=== PATIENT | female | born 1995 | race Caucasian/White ===

== ENCOUNTER → 2023-11-21 07:58 | Outpatient (BNVA) | payer BC, SELFPAY | PROVIDERS: Family Provider Nurse Practitioner Family; PCP Nurse Practitioner Family; Visit Provider Nurse Practitioner Family | DX: R00.2 Palpitations (principal); E78.5 Hyperlipidemia, unspecified; I10 Essential (primary) hypertension | CPT/HCPCS: 93005 ==

== ENCOUNTER → 2023-11-21 10:44 | Outpatient (BNVA) | payer BC, SELFPAY | PROVIDERS: Family Provider Nurse Practitioner Family; PCP Nurse Practitioner Family; Visit Provider Nurse Practitioner Family | DX: R00.2 Palpitations (principal); E78.5 Hyperlipidemia, unspecified; I10 Essential (primary) hypertension | CPT/HCPCS: 80053; 80061; 84439; 84443; 84481 ==

== ENCOUNTER → 2025-03-14 10:00 | Outpatient (BNVA) | payer BC, SELFPAY | PROVIDERS: Family Provider Nurse Practitioner Family; PCP Nurse Practitioner Family; Visit Provider Emergency Medicine | DX: B34.9 Viral infection, unspecified (principal); J03.80 Acute tonsillitis due to other specified organisms; B96.89 Other specified bacterial agents as the cause of diseases classified elsewhere | CPT/HCPCS: 87070; 87426; 87880 ==

== ENCOUNTER 2025-08-12 14:59 | Inpatient (IN) | payer BC, SELFPAY ==
[2025-08-12] VITALS (186 sets, daily range): BP systolic 87–182; BP diastolic 43–115; PULSE 64–101; RESP 18; TEMP 36.1–36.9; O2SAT 94–100; BMI 25.8
[2025-08-12 13:08] LABS: Hematocrit 32.5 % (36-47); Hemoglobin 10.50 g/dL (11.27-16.99); Mean Corpuscular HGB Conc 32.3 g/dL (30-55); Mean Corpuscular Hemoglobin 28.2 pg (27-33); Mean Corpuscular Volume 87.1 fl (85-98); Nucleated Red Blood Cells % 0 %; Platelet Count 279 10^3/cmm (157-399); Red Blood Count 3.73 10^6/uL (3.85-5.65); White Blood Count 9.27 10^3/uL (3.29-11.43)
[2025-08-12] MEDS: labetalol 5 mg/mL SDV 20mL 20 MG IVP ×2 (13:19→15:33)
[2025-08-12 13:21] LABS: Glucose Urine UA Negative (Normal); Nitrate Urine Negative (Negative); Specific Gravity, Urine 1.006 (1.005-1.030)
[2025-08-12 13:23] LABS: Alanine Aminotransferase 13 U/L (0-33); Albumin Level 3.7 g/dL (3.5-5.2); Alkaline Phosphatase 170 U/L (35-105); Anion Gap 15.7 (5-19); Aspartate Amino Transferase 14 U/L (0-32); Blood Urea Nitrogen 6 mg/dL (6-20); Calcium 8.9 mg/dL (8.5-10.5); Carbon Dioxide 18 mmol/L (22-29); Chloride 105 mmol/L (98-107); Globulin 2.9 g/dL (1.3-4.6); Glucose 91 mg/dL (65-115); Osmolality Calculated 277 mOsm/kg (285-295); Potassium 3.7 mmol/L (3.5-5.1); Sodium 135 mmol/L (136-145); Total Protein 6.6 g/dL (6.6-8.7); Uric Acid 3.8 mg/dL (2.4-5.7)
[2025-08-12 13:26] LABS: Add Urine Microscopic? YES
[2025-08-12 13:40] LABS: UPRO/UCREAT Ratio 0.78 mg/mg CR
[2025-08-12 13:51] LABS: UA Slide Review UA Slide Review Perf
[2025-08-12] MEDS: magnesium sulfate premix 4 GM/100 ML PREMIX IV (14:28)
[2025-08-12] MEDS: magnesium sulfate premix 20 GM/500 ML BAG IV ×2 (14:51→22:54)
--- NOTE | 2025-08-12 15:19 | ANES.PREANE2 ---
Pre-Anesthetic Assessment Height/Weight: Height 1.7 m Weight 74.843 kg Pulse BP Pulse Ox O2 Del Method 96 161/101 98 Room Air 08/12/25 15:15 08/12/25 15:13 08/12/25 15:15 08/12/25 12:59 Epidural Familial anesthetic complications: Nausea Was Beta Courtney taken within 24 hours: N/A Was Clonidine taken within 24 hours: N/A Last intake: 1200 solids Social No alcohol and No tobacco Exam alert, oriented x 3, clear to auscultation bilaterally and regular rate & rhythm Airway Submandibular: within normal limits Cervical ROM: within normal limits Mallampati: Class II Dentition: full History/ROS No significant history except as noted and No significant complaints Pulmonary None reported CV/HEM Hypertension (Pre-eclampsia) None reported Hepatic None reported GI Gastroesophageal Reflux Disease (Gestational) Metabolic None reported Musc/skel Scoliosis (Wore a back brace but never needed corrective surgery. Chiari malformation, underwent corrective surgery at age 12, went to neurology once a year until 20 and was discharged. Patient states she was able to play sports without issues. No neurological symptoms noted.) Neuropsych Anxiety and Depression Anesthetic Plan ASA status: 3 Anesthesia: Anesthesia Evaluation, General and Regional (specify below) Risk of > 500 ml blood loss (7ml/kg in children): Yes, adequate IV access and fluids planned Medications/Allergies Home Medications ?Medication ?Instructions ?Recorded ?Confirmed ?Last Taken ?Type omeprazole 20 mg capsule,delayed 20 mg PO DAILY 08/12/25 08/12/25 08/11/25 20:00 History release [id number]-efh-Dy-FA 1 mg 1 tab PO DAILY 08/12/25 08/12/25 08/12/25 08:00 History tablet 1 tab Allergies Allergy/AdvReac Type Severity Reaction Status Date / Time No Known Allergies Allergy Verified 03/14/25 09:51 Current Medications Generic Name Dose Route Start Last Admin Trade Name Freq PRN Reason Stop Dose Admin Dextrose/Lactated Ringer's 1,000 mls @ 125 mls/hr 08/12/25 13:00 08/12/25 13:14 Dextrose 5%-Lactated Ringers IV 125 mls/hr .Q8H LESLIE Administration Magnesium Sulfate 20 gm in 500 mls @ 50 mls/hr 08/12/25 14:15 08/12/25 14:51 Magnesium Sulfate Premix IV 50 mls/hr .Q10H LESLIE Administration Labetalol HCl 20 mg 08/12/25 13:02 08/12/25 13:19 Labetalol 5 Mg/Ml Sdv 20ml IVP 20 mg PRN PRN Administration HYPERTENSION Protocol Misoprostol 25 mcg 08/12/25 13:00 08/12/25 13:23 Misoprostol 100 Mcg Tablet VAGINAL 08/12/25 17:01 25 mcg Q4H LESLIE Administration PFS Anesthesia Medical History Chiari I malformation Surgical History History of cervical spinal surgery Family History Mother Hypertension Grandfather Heart disease maternal Grandmother Stroke maternal Social History Smoking and tobacco/nicotine status: never used tobacco/nicotine Alcohol intake: never Substance/Drug Use: never Adopted: No Caregiver/support person: No Lives independently: No Household members: spouse service: No Current occupational status: employed Sexually active: Yes Do you think of yourself as: Straight/Heterosexual Current gender identity: Female Female Reproductive History : 1 Data Anesthesia 08/12/25 12:30 08/12/25 12:30 Short CBC 08/12/25 Range/Units 12:30 WBC 9.27 (3.29-11.43) 10^3/uL Hgb 10.50 L (11.27-16.99) g/dL Hct 32.5 L (36-47) % MCV 87.1 (85-98) fl Plt Count 279 (157-399) 10^3/cmm Neut % (Auto) 70.4 % Neut # (Auto) 6.52 (1.8-7.7) 10^3/uL BMP 08/12/25 12:30 Sodium 135 L Potassium 3.7 Chloride 105 Carbon Dioxide 18 L BUN 6 Creatinine 0.5 Glucose 91 Calcium 8.9 Liver Function 08/12/25 Range/Units 12:30 Total Bilirubin 0.2 (0.15-1.2) mg/dL AST 14 (0-32) U/L ALT 13 (0-33) U/L Alkaline Phosphatase 170 H (35-105) U/L Albumin 3.7 (3.5-5.2) g/dL Urine 08/12/25 Range/Units 12:30 Urine Color Yellow (Yellow) Urine Appearance Clear (CLEAR) Urine pH 6.0 (5-7) Ur Specific [place] 1.006 (1.005-1.030) Urine Protein Trace A (Negative) Urine Glucose (UA) Negative (Normal) Urine Ketones Negative (Negative) Urine Nitrate Negative (Negative) Urine Bilirubin Negative (Negative) Ur Leukocyte Esterase Negative (Negative) Urine RBC 0-2 (0-2) /hpf Urine WBC 6-10 (0-5) /hpf Blood Bank 08/12/25 12:30 Blood Type A Positive Rho(D) Type Rh positive Antibody Screen Negative Cardiac Studies: Holter Monitor 12/09/23
[2025-08-12] MEDS: ondansetron 2 mg/ML SDV 2 mL 4 MG IVP (16:50)
[2025-08-12] MEDS: ROPivacaine premix 200 MG/100 ML PREMIX 13 MG EPIDURAL ×2 (16:54→21:32)
--- NOTE | 2025-08-12 17:02 | P.ANES_ITS ---
Anesthesia Procedures Procedure/Date: 08/12/25 Epidural: Time Out Performed: Yes Consents Signed: Procedure Consent and NPO Consent Consent: requested by attending/covering physician, from patient, risks and benefits reviewed and patient agrees to proceed Lumbar Level: L2-L3 Epidural position: sitting Epidural procedure: sterile prep of area (betadine), 1% lidocaine to numb the area (3 mLs), neg for paresthesia, test dose given, 1.5% xylocaine 1:200k epi (3 mLs/ 2 mLs), placed PCEA, no systemic response, sterile dressing applied, L.U.D. no apparent complications and 0.2% Ropiavacaine @ mls/hr (13) Additional Comments: KALYANI 4.5cm, catheter threaded to 11cm. Negative aspiration for CSF and blood. BORING MILL OPERATOR button within reach with education given and patient verbalizing understanding. 1800: Patient complains of pain despite utilizing BORING MILL OPERATOR button 3 times. 100mcg fentanyl and 6 mL0.25% bupivacaine administered via epidural. Negative aspiration for CSF and blood. Educated patient that epidural may need to be replaced. She is agreeable. 1900: Patient states she had some relief from previous bolus but still experiencing contraction pain and requests a new epidural. Previous epidural removed with tip intact. Dr. Hayes asked to come and replace epidural. Epidural inserted at L3-4, KALYANI 6cm, catheter threaded to 12cm. 5cc bolus given and patient states contraction pain has improved.
--- NOTE | 2025-08-12 22:19 | PM.OPHPUD ---
Labor & Delivery H&P Update Date of Procedure: August 12, 2025 Date H&P Performed: 08/12/25 Admission Diagnosis: 30-year-old 1 at 39 weeks estimated gestational age presenting with preeclampsia with severe features due to elevated blood pressure Planned procedure: Spontaneous vaginal delivery Other information: The patient is an otherwise healthy 30-year-old female who presents to my office today for a routine OB visit. During her visit she was noted to have multiple blood pressures are in the severe range with several systolic blood pressures greater than 160. Due to her gestational age, I notified her that she would be induced today. Otherwise, she had been having minimal symptoms. She is having only routine dependent edema in her lower extremities. No complaints of headaches. No abdominal pain. No swelling in her hands or face. No scotoma. Otherwise, her has been unremarkable. She had consistent care. There were no concerns or complications otherwise during her . Her blood type was a positive. Her antibody screen was negative. She passed her glucose screen. She was GBS negative. She is rubella immune. The remainder of her infectious disease profile was within normal limits. Related Problem List Diagnoses 1. 39 weeks gestation of : 2. Pre-eclampsia in third trimester: A&P Assessment and plan 1. 39 weeks gestation of : Induction will be performed with Cytotec, and amniotomy as well as Pitocin as needed. Due to her severe features, she will also be placed on magnesium per protocol. Status: Acute 2. Pre-eclampsia in third trimester: Status: Acute PDMP PDMP Reviewed: Not Reviewed
[2025-08-12] MEDS: oxytocin 30 UNIT/500 ML BAG 600 UNIT IV (22:47)
--- NOTE | 2025-08-12 23:28 | PM.DELIVERY ---
Delivery Note: Date of delivery: August 12, 2025 Pre-delivery diagnoses: 30-year-old 1 at 39 weeks estimated gestational age with preeclampsia with severe features Post-delivery diagnoses: Status post vacuum-assisted vaginal delivery Procedure: Vacuum-assisted vaginal delivery Delivering Physician: Que Gaitan Estimated blood loss (mL): 200 Pre-Delivery Course: The patient presented to the hospital having no contractions but being sent for induction due to elevated blood pressure. She had a preeclamptic profile performed and she was found to have a protein creatinine ratio of 0.78. The remainder of her labs are within normal limits. She also had no signs or symptoms of preeclampsia other than her elevated blood pressure. She was induced initially with Cytotec. An amniotomy was then performed. An epidural was placed. She progressed to complete without difficulty. She did have multiple elevated blood pressures that were treated with labetalol. Delivery: DELIVERY: The patient progressed to complete without difficulty. She delivered a male with a weight of 7 pounds 6 ounces with Apgars of 8, 9. Due to multiple deep decelerations, the decision was made to proceed with a vacuum-assisted delivery. The vacuum was gently placed the baby's head in the appropriate anatomic position. The Kiwi vacuum with a soft cup was pumped up according to professor of sport management instructions into the green zone. The vacuum was then used to assist the mother and delivery during 2 contractions. At the end of the second contraction the vacuum was removed, and the baby was then delivered without difficulty. The baby was delivered from the ZACKERY position and placed on the mother's abdomen. The cord was then clamped and cut. There was no nuchal cord. There was no meconium. The placenta and 3 vessel cord were delivered intact shortly thereafter. The perineum and vaginal vault were carefully examined. The patient had a second-degree tear that was repaired with 3-0 Vicryl. She was noted to have a skin flap in her perineal area which was carefully reapproximated with the surrounding skin in the appropriate anatomical position. Both the mother and the baby were in stable condition. Post-Delivery Status: Good A&P Assessment and plan 1. 39 weeks gestation of : The patient will be kept on magnesium postdelivery. If she diuresis well, and her blood pressure stay normal I will likely keep her on magnesium for only 12 hours due to the fact that she had no other symptoms of preeclampsia. 2. Pre-eclampsia in third trimester: 3. Vacuum-assisted vaginal delivery: PDMP PDMP Reviewed: Not Reviewed Coding Level of Care Code Acute Code for Chg Fwd Diagnoses 39 weeks gestation of Z3A.39 Pre-eclampsia in third trimester O14.93 Vacuum-assisted vaginal delivery Z37.9
[2025-08-13] VITALS (27 sets, daily range): BP systolic 119–154; BP diastolic 63–95; PULSE 81–105; RESP 16; TEMP 36.1–36.7
[2025-08-13] MEDS: benzocaine-menthol 78 gm Canister 1 SPRAY TOPICAL (03:10)
[2025-08-13] MEDS: PRENATAL VIT NO.130/IRON/FOLIC 1 EACH TABLET PO (04:58)
--- NOTE | 2025-08-13 06:48 | P.PN_ITS ---
MOISTURE METER OPERATOR Subjective 2 Subjective: Interval history: The patient has done very well postdelivery. She has had large volume diuresis. She continues to be sedated for the magnesium. She has not had any severe blood pressures. Labor: Station: +1 Amniotic Membrane Status: Ruptured Monitor Mode: External Contraction Pattern: Regular Status: Category I Vitals/I&O/Wt Last Vital Signs Temp 98.0 F 08/13/25 03:17 Pulse 100 08/13/25 06:14 Resp 16 08/13/25 00:03 BP 133/80 08/13/25 06:14 Pulse Ox 99 08/12/25 20:57 O2 Del Method Room Air 08/13/25 00:03 08/12/25 08/12/25 08/13/25 14:59 22:59 06:59 Intake Total 602.5 / 602.5 2000 / 2602.5 Output Total 1475 / 1475 2100 / 3575 Balance -872.5 / -872.5 -100 / -972.5 Weight last 48 hrs Weight 165 lb Physical Exam 2 Narrative: The patient is alert. She appears comfortable. Her heart has a regular rate and rhythm with no murmurs appreciated. Lungs are clear to auscultation bilaterally. Her fundus is firm and below the umbilicus. Urinary Catheter Management: Cruz Latex: Cath Placed During This Visit: yes Reason for Continuing Indwelling Catheter: Accurate Measurement of Urinary Output in Critically Ill Patients Urinary Catheter Date of Insertion: 08/13/25 Urinary Catheter Time of Insertion: 00:00 Data 08/12/25 12:30 08/12/25 12:30 A&P Assessment and plan 1. Pre-eclampsia in third trimester: If she continues to do well, we will consider stopping the magnesium 12 hours postdelivery. Especially in light of her impressive diuresis as well as her lack of other preeclamptic symptoms. Hopefully should be discharged tomorrow. 2. 39 weeks gestation of : 3. Status post vaginal delivery: PDMP PDMP Reviewed: Not Reviewed Attestations 2 Medical Necessity Statement*: Routine post vaginal delivery with preeclampsia care. Coding Level of Care Code Acute Code for Chg Fwd Diagnoses Pre-eclampsia in third trimester O14.93 39 weeks gestation of Z3A.39 Status post vaginal delivery
--- NOTE | 2025-08-13 08:00 | ANE.PACU2 ---
Inpatient post-anesthesia follow up: Airway intact: Yes Vital signs: Temperature 97.5 F Pulse Rate 93 Respiratory Rate 16 Blood Pressure 143/90 Pulse Oximetry 98 Oxygen Delivery Me thod Room Air Oxygen Flow Rate Fraction of Inspir ed Oxygen Hydration adequate: Yes Nausea and vomiting: No Pain level: 1 Mental status: Baseline Epidural Start/End: Epidural Start Date: 08/12/25 Epidural Start Time: 16:32 Epidural End Date: 08/12/25 Epidural End Time: 23:28
[2025-08-13] MEDS: magnesium sulfate premix 20 GM/500 ML BAG IV (09:05)
[2025-08-13 11:55] LABS: Hematocrit 26.1 % (36-47); Hemoglobin 8.40 g/dL (11.27-16.99); Mean Corpuscular HGB Conc 32.2 g/dL (30-55); Mean Corpuscular Hemoglobin 28.0 pg (27-33); Mean Corpuscular Volume 87.0 fl (85-98); Platelet Count 242 10^3/cmm (157-399); Red Blood Count 3.00 10^6/uL (3.85-5.65); White Blood Count 12.86 10^3/uL (3.29-11.43)
[2025-08-14] VITALS (10 sets, daily range): BP systolic 135–160; BP diastolic 76–94; PULSE 73–93; TEMP 36.1–36.4; O2SAT 98
[2025-08-14] MEDS: PRENATAL VIT NO.130/IRON/FOLIC 1 EACH TABLET PO (04:51)
--- NOTE | 2025-08-14 09:58 | P.DS_ITS ---
Discharge Providers FRONT END WEB DESIGNER Date of Admission: 08/12/25 14:59 Date of Discharge: 08/19/25 Attending Provider at Admission: Que Gaitan MD Attending Provider at Discharge: Que Gaitan MD Primary Care Provider: HARRY Whiting Diagnoses at Discharge Discharge Diagnosis 1. Pre-eclampsia in third trimester: 2. 39 weeks gestation of : 3. Status post vaginal delivery: Reason for Visit Reason for Visit: induction Hospital Course Hospital Course The patient presented to the hospital for induction due to preeclampsia. She had a preeclamptic panel performed which noted an elevated protein creatinine ratio. The remainder of the findings were within normal limits. She had mul tiple blood pressure elevations including multiple that were in the severe range. We ultimately were able to control her blood pressures while inducing here. An epidural was placed. And she progressed to complete without difficulty. A vacuum-assisted vaginal delivery was required due to multiple deep decelerations of her . The patient had a second-degree posterior midline laceration that was repaired in the usual fashion. The patient was maintained on magnesium for 12 hours postdelivery. She diuresed postdelivery. Her blood pressure improved. She did continue to require blood pressure medications through her hospital stay. Her bleeding was within normal limits. Her pain was well-controlled. There were no other concerns. Information Peripartum Data: Infant Delivery Method: Vaginal Physical Exam Narrative: The patient is alert. She appears comfortable. Her heart has a regular rate and rhythm with no murmurs appreciated. Lungs are clear to auscultation bilaterally. Her fundus is firm and below the umbilicus. Trace to 1+ edema in her lower extremities bilaterally. No other edema is noted. Urinary Catheter Management: Cruz Latex: Cath Placed During This Visit: yes, but has since been removed by the nurse Reason for Continuing Indwelling Catheter: Decision to DC Catheter Urinary Catheter Date of Insertion: 08/13/25 Urinary Catheter Time of Insertion: 00:00 Date Urinary Catheter Removed: 08/13/25 Time Urinary Catheter Discontinued: 13:00 Discharge Data Studies Completed and Pending Pending at discharge Category Date Time Status Urine Culture Stat Lab 08/12/25 12:30 Results Laboratory Results WBC 12.86 10^3/uL (3.29-11.43) H 08/13/25 11:11 RBC 3.00 10^6/uL (3.85-5.65) L 08/13/25 11:11 Hgb 8.40 g/dL (11.27-16.99) L 08/13/25 11:11 Hct 26.1 % (36-47) L 08/13/25 11:11 MCV 87.0 fl (85-98) 08/13/25 11:11 MCH 28.0 pg (27-33) 08/13/25 11:11 MCHC 32.2 g/dL (30-55) 08/13/25 11:11 RDW 13.2 % (12.1-15.1) 08/13/25 11:11 Plt Count 242 10^3/cmm (157-399) 08/13/25 11:11 MPV 10.7 fL (7.4-10.4) H 08/13/25 11:11 Neut % (Auto) 70.4 % 08/12/25 12:30 Lymph % (Auto) 21.5 % 08/12/25 12:30 Eddy % (Auto) 6.0 % 08/12/25 12:30 Eos % (Auto) 0.4 % 08/12/25 12:30 Baso % (Auto) 0.4 % 08/12/25 12:30 Neut # (Auto) 6.52 10^3/uL (1.8-7.7) 08/12/25 12:30 Lymph # (Auto) 2.0 10^3/uL (0.8-4.8) 08/12/25 12:30 Eddy # (Auto) 0.6 10^3/uL (0.2-0.9) 08/12/25 12:30 Eos # (Auto) 0.0 10^3/uL (0.0-0.8) 08/12/25 12:30 Baso # (Auto) 0.0 10^3/uL (0.0-0.1) 08/12/25 12:30 Nucleated RBC % (auto) 0 % 08/12/25 12:30 Nucleated RBCs # 0.0 /100WBC 08/12/25 12:30 Sodium 135 mmol/L (136-145) L 08/12/25 12:30 Potassium 3.7 mmol/L (3.5-5.1) 08/12/25 12:30 Chloride 105 mmol/L (98-107) 08/12/25 12:30 Carbon Dioxide 18 mmol/L (22-29) L 08/12/25 12:30 Anion Gap 15.7 (5-19) 08/12/25 12:30 BUN 6 mg/dL (6-20) 08/12/25 12:30 Creatinine 0.5 mg/dL (0.5-0.9) 08/12/25 12:30 GFR Calculation 146.9 mL/min (90-130) H 08/12/25 12:30 Glucose 91 mg/dL (65-115) 08/12/25 12:30 Calculated Osmolality 277 mOsm/kg (285-295) L 08/12/25 12:30 Uric Acid 3.8 mg/dL (2.4-5.7) 08/12/25 12: Calcium 8.9 mg/dL (8.5-10.5) 08/12/25 12: Total Bilirubin 0.2 mg/dL (0.15-1.2) 08/12/25 12: AST 14 U/L (0-32) 08/12/25 12:30 ALT 13 U/L (0-33) 08/12/25 12:30 Alkaline Phosphatase 170 U/L (35-105) H 08/12/25 12:30 Lactate Dehydrogenase 257 U/L (135-214) H 08/12/25 12:30 Total Protein 6.6 g/dL (6.6-8.7) 08/12/25 12: Albumin 3.7 g/dL (3.5-5.2) 08/12/25 12: Globulin 2.9 g/dL (1.3-4.6) 08/12/25 12:30 Urine Color Yellow (Yellow) 08/12/25 12:30 Urine Appearance Clear (CLEAR) 08/12/25 12:30 Urine pH 6.0 (5-7) 08/12/25 12: Ur Specific [place] 1.006 (1.005-1.030) 08/12/25 12:30 Urine Protein Trace (Negative) A 08/12/25 12:30 Urine Glucose (UA) Negative (Normal) 08/12/25 12: Urine Ketones Negative (Negative) 08/12/25 12:30 Urine Blood 2+ (Negative) A 08/12/25 12:30 Urine Nitrate Negative (Negative) 08/12/25 12:30 Urine Bilirubin Negative (Negative) 08/12/25 12:30 Urine Urobilinogen 0.2 mg/dL (Negative) 08/12/25 12:30 Ur Leukocyte Esterase Negative (Negative) 08/12/25 12:30 Urine RBC 0-2 /hpf (0-2) 08/12/25 12:30 Urine WBC 6-10 /hpf (0-5) 08/12/25 12:30 Ur Squamous Epith Cells 0-5 /hpf (0-5) 08/12/25 12:30 Amorphous Sediment Not Reportable 08/12/25 12:30 Urine Bacteria 1+ /hpf (NONE) H 08/12/25 12:30 Hyaline Casts 0-4 /lpf H 08/12/25 12:30 U Random Total Protein 21 mg/dL 08/12/25 12:30 Urine Creatinine 27 mg/dL (28-217) L 08/12/25 12:30 Protein/Creatinin Ratio 0.78 mg/mg CR 08/12/25 12:30 Blood Type A Positive 08/12/25 12:30 Rho(D) Type Rh positive 08/12/25 12:30 Antibody Screen Negative 08/12/25 12:30 Vitals Last Vital Signs Temp 97.0 F L 08/14/25 04:55 Pulse 86 08/14/25 06:41 Resp 16 08/13/25 00:03 BP 135/76 08/14/25 06:41 Pulse Ox 99 08/12/25 20:57 O2 Del Method Room Air 08/13/25 00:03 Results Labs OB ([facility]): Blood Type A Positive 08/12/25 Antibody Screen Negative 08/12/25 Hct, (36-47) 25.9 % L 08/15/25 Hgb, (11.27-16.99) 8.70 g/dL L 08/15/25 Rho(D) Type Rh positive 08/12/25 Plt Count, (157-399) 273 10^3/cmm 08/15/25 TSH, (0.27-4.20) 1.74 uIU/mL 11/21/23 Free T4, (0.82-1.77) 1.32 ng/dL 11/21/23 Uric Acid, (2.4-5.7) 3.8 mg/dL 08/12/25 Micro Urine Specimen 08/15/25 Discharge Plan Discharge Patient Disposition: Home Condition: Stable Prescriptions: New labetalol 200 mg Tablet 200 mg PO BID Qty: 45 0RF ibuprofen 800 mg Tablet 800 mg PO TID Qty: 45 0RF Continued tmmzwupa-xxj-Sd-FA 1 mg Tablet 1 tab PO DAILY Discontinued omeprazole 20 mg Capsule,Delayed Release(Dr/Ec) 20 mg PO DAILY No Action nifedipine [Procardia XL] 60 mg tablet extended release 24hr 60 mg PO DAILY Qty: 30 0RF lisinopril 20 mg tablet 20 mg PO DAILY Qty: 30 0RF cefdinir 300 mg capsule 300 mg PO BID 10 Days Qty: 20 0RF Discharge Order = DC NOW: Discharge Order (Routine); Ordered 08/14/25 Ordered By: Que Gaitan Referrals: Que Gaitan MD [Physician, Family Practice] - 7-10 days Referral Note: Call Dr Marmolejo office first thing on Friday to get an appt for you and baby. Discharge Diet: Usual diet Discharge Activity: Limit activity as instructed Patient Instructions: Depression (GEN), Bleeding (GEN), Preeclampsia and Eclampsia After Delivery (GEN), OB Food/Drug Interaction Guide, OB Care at Home, Opioid Safety, OB Home Care, OB Vaginal Deliveries, Patient Portal & Simón Instructions, Abnormal Bleeding Discharge Attestations FRONT END WEB DESIGNER Time Spent in Discharge Care*: less than 30 min Coding Level of Care Code Acute Code for Chg Fwd Diagnoses Pre-eclampsia in third trimester O14.93 39 weeks gestation of Z3A.39 Status post vaginal delivery
== END 2025-08-14 12:20 | disposition home or self-care (01) | DRG 805 ==
LOC: OPOB 15:00 → OBGYN 15:00
PROVIDERS: Admitting Provider Family Medicine; PCP Nurse Practitioner Family; Visit Provider Family Medicine
DX: O14.94 Unspecified pre-eclampsia, complicating childbirth (principal); G93.5 Compression of brain; Z37.0 Single live birth; Z3A.39 39 weeks gestation of pregnancy; O76 Abnormality in fetal heart rate and rhythm complicating labor and delivery; O70.1 Second degree perineal laceration during delivery; O75.89 Other specified complications of labor and delivery; K21.9 Gastro-esophageal reflux disease without esophagitis
CPT/HCPCS: 36415; 51702; 59025; 59409; 80053; 81001; 82570; 83615; 84156; 84550; 85025; 85027; 86850; 86900; 87086; 96374; 96376; 99211; J2405; J2590; J2795; J3010; J3475; J3490; J7120; J7121; J9999

== ENCOUNTER 2025-08-15 17:09 | Emergency (ER) | payer BC, SELFPAY ==
[2025-08-15] VITALS (14 sets, daily range): BP systolic 154–185; BP diastolic 99–111; PULSE 71–101; RESP 16–19; TEMP 37; O2SAT 95–97; BMI 24.3
--- NOTE | 2025-08-15 17:04 | ECG_ITS ---
[facility] Test Date: 2025-08-15 Pat Name: Jimena Richards Department: Room: Gender: Female Carbon Setter: : 1995 Requested By: Joann Norris Order Number: [id number] Mo MD: Fatuma Nguyen M.D. Measurements Intervals [place] Rate: 71 P: 25 HI: 135 QRS: 39 QRSD: 76 T: 39 QT: 375 QTc: 410 Interpretive Statements SINUS RHYTHM No previous ECG available for comparison Electronically Signed On 08-16-2025 19:00:58 [employer]VER [employer] by Fatuma Nguyen M.D. [email or web address]
--- OUTSIDE RECORDS SUMMARY | 2025-08-15 17:13 | XMS_ITS | Continuity of Care Document ---
Author Organization [facility] Gabriel Saenz [facility], LCelena, [facility] ([facility]) Address [address] [place] [address] Assessment No assessment recorded. Plan of Treatment Reminders Order Date Submit Date Provider Last Modified By Organization Details Last Modified Time Details Appointments POST-PA RTUM VISIT 026 09:50AM Que Gaitan MD Not available Not available Not available Lab None recorde d. Referral None recorde d. Procedures None recorde d. Surgeries None recorde d. Imaging None recorde d. Medication Orders None recorde d. Patient TargetsNo targets recorded. Patient InstructionsNo instructions recorded. Reason for Referral None Reported. Results Created Date Observation Date Name Description Value Unit Range Abnormal Flag Note LastModifiedBy Organization Detail LastModifiedTime 02/05/2002/08/2025 URINA LYSIS , COMPL ETE color YELLOW yellow normal Not Available [facility] [address] [place], [address], 02/08/2025 11:05:21 02/05/20 25 02/08/2025 URINA LYSIS , COMPL ETE appearance CLOUDY clear abnormal Not Available [facility] [address] [place], [address], 02/08/2025 11:05:21 02/05/2002/08/2025 URINA LYSIS , COMPL ETE specific gravity 1.024 1.001- 1.035 normal Not Available [facility] [address] [place], [address], 02/08/2025 11:05:21 02/05/20 25 02/08/2025 URINA LYSIS , COMPL ETE pH 6.5 5.0-8. 0 normal Not Available [address], [address], 02/08/2025 11:05:21 02/05/20 25 02/08/2025 URINA LYSIS , COMPL ETE glucose NEGATI VE negati ve normal Not Available [address], [address], 02/08/2025 11:05:21 02/05/20 25 02/08/2025 URINA LYSIS , COMPL ETE bilirubin NEGATI VE negati ve normal Not Available [address], [address], 02/08/2025 11:05:21 02/05/20 25 02/08/2025 URINA LYSIS , COMPL ETE ketones NEGATI VE negati ve normal Not Available [address], [address], 02/08/2025 11:05:21 02/05/20 25 02/08/2025 URINA LYSIS , COMPL ETE occult blood NEGATI VE negati ve normal Not Available [facility] [address], [address], 02/08/2025 11:05:21 02/05/20 25 02/08/2025 URINA LYSIS , COMPL ETE protein NEGATI VE negati ve normal Not Available [facility] [address], [address], 02/08/2025 11:05:21 02/05/20 25 02/08/2025 URINA LYSIS , COMPL ETE nitrite NEGATI VE negati ve normal Not Available [facility] [address], [address], 02/08/2025 11:05:21 02/05/20 25 02/08/2025 URINA LYSIS , COMPL ETE leukocyte esterase NEGATI VE negati ve normal Not Available [address], [address], 02/08/2025 11:05:21 02/05/20 25 02/08/2025 URINA LYSIS , COMPL ETE WBC 6-10 /hpf < or = 5 abnormal Not Available [address], [address], 02/08/2025 11:05:21 02/05/20 25 02/08/2025 URINA LYSIS , COMPL ETE RBC 0-2 /hpf < or = 2 normal Not Available [address], [address], 02/08/2025 11:05:21 02/05/20 25 02/08/2025 URINA LYSIS , COMPL ETE squamous epithelial cells 10-20 /hpf < or = 5 abnormal Not Available [address], [address], 02/08/2025 11:05:21 02/05/20 25 02/08/2025 URINA LYSIS , COMPL ETE bacteria MANY /hpf none seen abnormal Not Available [address], [address], 02/08/2025 11:05:21 02/05/20 25 02/08/2025 URINA LYSIS , COMPL ETE hyaline cast NONE SEEN /lpf none seen normal Not Available [address], [address], 02/08/2025 11:05:21 02/05/20 25 02/08/2025 URINA LYSIS , COMPL ETE note This urine was arash zed for the prese nce of WBC, RBC, bacte octavia, casts , and other forme d eleme nts. Only those eleme nts seen were repor ric. Not Available [address], [address], 02/08/2025 11:05:21 02/05/20 25 02/08/2025 CBC (INCL UDES DIFF/ PLT) white blood cell count 6.8 thous and/u L 3.8-10 .8 normal Not Available [address], [address], 02/08/2025 11:05:22 02/05/20 25 02/08/2025 CBC (INCL UDES DIFF/ PLT) red blood cell count 4.14 moriah on/uL 3.80-5 .10 normal Not Available [address], [address], 02/08/2025 11:05:22 02/05/20 25 02/08/2025 CBC (INCL UDES DIFF/ PLT) hemoglobin 12.8 g/dL 11.7-1 5.5 normal Not Available [address], [address], 02/08/2025 11:05:22 02/05/20 25 02/08/2025 CBC (INCL UDES DIFF/ PLT) hematocrit 39.4 % 35.0-4 5.0 normal Not Available [address], [address], 02/08/2025 11:05:22 02/05/20 25 02/08/2025 CBC (INCL UDES DIFF/ PLT) MCV 95.2 fL 80.0-1 00.0 normal Not Available [address], [address], 02/08/2025 11:05:22 02/05/20 25 02/08/2025 CBC (INCL UDES DIFF/ PLT) MCH 30.9 pg 27.0-3 3.0 normal Not Available [facility] [address], [address], 02/08/2025 11:05:22 02/05/20 25 02/08/2025 CBC (INCL UDES DIFF/ PLT) MCHC 32.5 g/dL 32.0-3 6.0 normal For adult s, a sligh t decre ase in the calcu lated MCHC value (in the range of 30 to 32 g/dL) is most likel y not clini rafy signi fican t; carina er, it shoul d be inter prete d with cauti on in [facility] n with other red cell león eters and the patie nt's clini sara condi tion. Not Available [facility] [address], [address], 02/08/2025 11:05:22 02/05/20 25 02/08/2025 CBC (INCL UDES DIFF/ PLT) RDW 12.4 % 11.0-1 5.0 normal Not Available [facility] [address], [address], 02/08/2025 11:05:22 02/05/20 25 02/08/2025 CBC (INCL UDES DIFF/ PLT) platelet count 250 thous and/u L 140-40 0 normal Not Available [facility] [address], [address], 02/08/2025 11:05:22 02/05/20 25 02/08/2025 CBC (INCL UDES DIFF/ PLT) MPV 9.9 fL 7.5-12 .5 normal Not Available [address], [address], 02/08/2025 11:05:22 02/05/20 25 02/08/2025 CBC (INCL UDES DIFF/ PLT) absolute neutrophils 4372 cells /uL 1500-7 800 normal Not Available [address], [address], 02/08/2025 11:05:22 02/05/20 25 02/08/2025 CBC (INCL UDES DIFF/ PLT) absolute lymphocytes 1795 cells /uL 850-39 00 normal Not Available [address], [address], 02/08/2025 11:05:22 02/05/20 25 02/08/2025 CBC (INCL UDES DIFF/ PLT) absolute monocytes 503 cells /uL 200-95 0 normal Not Available [address], [address], 02/08/2025 11:05:22 02/05/20 25 02/08/2025 CBC (INCL UDES DIFF/ PLT) absolute eosinophils 82 cells /uL 15-500 normal Not Available [address], [address], 02/08/2025 11:05:22 02/05/20 25 02/08/2025 CBC (INCL UDES DIFF/ PLT) absolute basophils 48 cells /uL 0-200 normal Not Available [address], [address], 02/08/2025 11:05:22 02/05/20 25 02/08/2025 CBC (INCL UDES DIFF/ PLT) neutrophils 64.3 % normal Not Available [address], [address], 02/08/2025 11:05:22 02/05/20 25 02/08/2025 CBC (INCL UDES DIFF/ PLT) lymphocytes 26.4 % normal Not Available [address], [address], 02/08/2025 11:05:22 02/05/20 25 02/08/2025 CBC (INCL UDES DIFF/ PLT) monocytes 7.4 % normal Not Available [address], [address], 02/08/2025 11:05:22 02/05/20 25 02/08/2025 CBC (INCL UDES DIFF/ PLT) eosinophils 1.2 % normal Not Available [facility] [address] [address] [place], [address], 02/08/2025 11:05:22 02/05/20 25 02/08/2025 CBC (INCL UDES DIFF/ PLT) basophils 0.7 % normal Not Available [facility] [address] [place], [address], 02/08/2025 11:05:22 02/05/20 25 02/08/2025 HEPAT ITIS B SURFA CE ANTIG EN W/REF L CONFI RM hepatitis B surface antigen NON-RE ACTIVE non-re active normal For addit ional infor hiwot girard, hugh e refer to http: //[facility] systemkarlos girard.mini stdia gnost ics.c om/fa q/FAQ 202 (This link is being provi ded for infor matio nal/ educa nia l purpo ses only. ) Not Available [facility] [address], [address], 02/08/2025 11:05:23 02/05/20 25 02/08/2025 HEPAT ITIS C AB W/REF L TO HCV RNA, QN, PCR hepatitis C antibody NON-RE ACTIVE non-re active normal HCV antib ruddy was non-r eacti ve. There is no labor atory evide nce of HCV infec tion. In most cases , no furth er actio n is requi red. Howev er, if recen t HCV expos ure is suspe cted, a test for HCV RNA (test code 25461 ) is sugge sted. For addit ional infor matkarlos n pleas e refer to http: //[facility] systemkarlos danielle stdia gnost ics.c om/fa q/FAQ 22v1 (This link is being provi ded for infor matio nal/ educa nia l purpo ses only. ) Not Available [facility] [address] [address] [place], [address], 02/08/2025 11:05:24 02/05/2002/08/2025 RUBEL LA AB (IGG) , IMMUN E STATU S rubella Ab (IgG), immune status 1.36 index normal Index Inter preta tion ----- ----- ----- ---- <0.90 Not consi stent with immun ity 0.90- 0.99 Equiv ocal > or = 1.00 Consi stent with immun ity The prese nce of rubel la IgG antib ruddy sugge sts immun izati on or past or curre nt infec tion with rubel la virus . Not Available [facility] [address] [address], [place], [address], 02/08/2025 11:05:24 02/05/2002/08/2025 HIV 1/2 ANTIG EN/AN TIBOD Y,FOU RTH GENER ATION W/RFL HIV Ag/Ab, 4TH gen NON-RE ACTIVE non-re active normal HIV-1 antig en and HIV-1 /HIV- 2 antib odies were not detec ric. There is no labor atory evide nce of HIV infec tion. PLEAS E NOTE: This infor matio n has been discl osed to you from recor ds whose confi denti ality may be prote cted by state law. If your state requi res such prote ction , then the state law prohi bits you from jose juan g any furth er discl osure of the infor matio n witho ut the speci fic writt en conse nt of the perso n to whom it perta ins, or as other bradshaw permi tted by law. A gener al autho rizat ion for the relea se of medic al or other infor matio n is NOT suffi cient for this purpo se. For addit ional infor matio n pleas e refer to http: //soniya quintanaque stdia gnost ics.c om/fa q/FAQ 106 (This link is being provi ded for infor matio nal/ educa nia l purpo ses only. ) The perfo rmanc e of this assay has not been clini rafy valid ated in patie nts less than 2 years old. Not Available [facility] [address] [place], [address], 02/08/2025 11:05:25 02/05/20 25 02/08/2025 RPR (DX) W/REF L TITER AND T. PALLI DUM AB, IA RPR (DX) w/refl titer and confirmatory testing NON-RE ACTIVE non-re active normal No labor atory evide nce of syphi lis. If recen t expos ure is suspe cted, submi t a new sampl e in 2-4 weeks . Not Available [facility] [address] [place], [address], 02/08/2025 11:05:27 02/05/20 25 02/08/2025 ANTIB RUDDY SCREE N, RBC W/REF L ID, TITER AND AG antibody screen, RBC w/refl id, titer and Ag NO ANTIBO DIES DETECT ED normal Refer ence range No antib odies detec ric This assay is a scree harper test for the detec tion of red blood cell antib odies . The test is not to be used for pretr ansfu tessie scree harper or for the medic al manag ement of an alloi mmuni zed pregn amber. Not Available [address], [address], 02/08/2025 11:05:28 02/05/20 25 02/08/2025 ABO GROUP AND RH TYPE ABO group A Not Available [address] [place], [address], 02/08/2025 11:05:28 02/05/2002/08/2025 ABO GROUP AND RH TYPE Rh type RH(D) POSITI VE For addit ional hugh kearns e refer to http: //soniya quintanaQue stDia gnost ics.c om/fa q/FAQ 111 (This link is being provi ded for infor hiwot humphrey/ educa nia l purpo ses only. ) Not Available [address] [address] [address], [place], [address], 02/08/2025 11:05:28 02/05/20 25 02/08/2025 DRUG MONIT OR, PANEL 1, SCREE N, URINE amphetamines NEGATI VE NG/mL <500 See Note A See Note A Not Available [address] [address] [address], [place], [address], 02/08/2025 11:05:29 02/05/20 25 02/08/2025 DRUG MONIT OR, PANEL 1, SCREE N, URINE barbiturates NEGATI VE NG/mL <300 See Note A See Note A Not Available [facility] [address] [address] [address], [place], [address], 02/08/2025 11:05:29 02/05/20 25 02/08/2025 DRUG MONIT OR, PANEL 1, SCREE N, URINE benzodiazepi regina NEGATI VE NG/mL <100 See Note A See Note A Not Available [facility] [address] [address] [address], [place], [address], 02/08/2025 11:05:29 02/05/20 25 02/08/2025 DRUG MONIT OR, PANEL 1, SCREE N, URINE cocaine metabolite NEGATI VE NG/mL <150 See Note A See Note A Not Available [facility] [address] [address] [address], [place], [address], 02/08/2025 11:05:29 02/05/20 25 02/08/2025 DRUG MONIT OR, PANEL 1, SCREE N, URINE marijuana metabolite NEGATI VE NG/mL <20 See Note A See Note A Not Available [facility] [address] [address] [address], [place], [address], 02/08/2025 11:05:29 02/05/20 25 02/08/2025 DRUG MONIT OR, PANEL 1, SCREE N, URINE methadone metabolite NEGATI VE NG/mL <100 See Note A See Note A Not Available [address] [address] [address], [place], [address], 02/08/2025 11:05:29 02/05/20 25 02/08/2025 DRUG MONIT OR, PANEL 1, SCREE N, URINE opiates NEGATI VE NG/mL <100 See Note A See Note A Not Available [address] [address] [address], [place], [address], 02/08/2025 11:05:29 02/05/20 25 02/08/2025 DRUG MONIT OR, PANEL 1, SCREE N, URINE oxycodone NEGATI VE NG/mL <100 See Note A See Note A Not Available [address] [address] [address], [place], [address], 02/08/2025 11:05:29 02/05/20 25 02/08/2025 DRUG MONIT OR, PANEL 1, SCREE N, URINE phencyclidin e NEGATI VE NG/mL <25 See Note A See Note A Not Available [address] [address] [address], [place], [address], 02/08/2025 11:05:29 02/05/2002/08/2025 DRUG MONIT OR, PANEL 1, SCREE N, URINE creatinine 208.5 mg/dL > or = 20.0 Not Available [address] [address] [address], [place], [address], 02/08/2025 11:05:29 02/05/2002/08/2025 DRUG MONIT OR, PANEL 1, SCREE N, URINE pH 6.6 4.5-9. 0 Not Available [address] [address] [address], [place], [address], 02/08/2025 11:05:29 02/05/2002/08/2025 DRUG MONIT OR, PANEL 1, SCREE N, URINE oxidant NEGATI VE mcg/m L <200 Not Available [address] [address] [address], [place], [address], 02/08/2025 11:05:29 02/05/20 25 02/08/2025 DRUG MONIT ORING TEMPL ATE notes and comments This drug testi ng is for medic al treat ment only. Arash sis was perfo rmed as non-f orens ic testi ng and these resul ts shoul d be used only by healt hcare provi ders to rende r diagn osis or treat ment, or to monit or progr ess of medic al condi tions . Note A: The resul ts are presu mptiv e; based only on nava salinas ds, and they have not been confi rmed by a defin itive metho d. Healt hcare Provi ders needi ng Inter preta tion vianey hugh bradley e conta ct us at 1.877 .40.R XTOX (1.87 [phone] ) M-F, 8am to 10pm EST Not Available [facility] [address] [address] [place], [address], 02/08/2025 11:05:30 02/05/20 25 02/08/2025 CULTU RE, URINE , ROUTI NE culture, urine, routine SEE NOTE CULTU RE, URINE , ROUTI NE Micro Numbe r: [id number] Test Statu s: Final Speci men Sourc e: Urine Speci men Quali ty: Adequ ate Resul t: No Growt h Not Available [facility] [address] [address] [place], [address], 02/08/2025 11:05:31 02/05/20 25 02/10/2025 THINP REP TIS PAP (REFL ) HPV MRNA E6/E7 clinical information: normal Pregn ant Not Available [facility] [address] [address] [place], [address], 02/10/2025 16:01:40 02/05/20 25 02/10/2025 THINP REP TIS PAP (REFL ) HPV MRNA E6/E7 LMP: normal NA Not Available [facility] [address] [address] [place], [address], 02/10/2025 16:01:40 02/05/20 25 02/10/2025 THINP REP TIS PAP (REFL ) HPV MRNA E6/E7 prev. Pap: normal NA Not Available [address] [place], [address], 02/10/2025 16:01:40 02/05/20 25 02/10/2025 THINP REP TIS PAP (REFL ) HPV MRNA E6/E7 prev. BX: normal NA Not Available [address] [place], [address], 02/10/2025 16:01:40 02/05/2002/10/2025 THINP REP TIS PAP (REFL ) HPV MRNA E6/E7 source: normal Cervi x, Endoc ervix Not Available [address], [address], 02/10/2025 16:01:40 02/05/20 25 02/10/2025 THINP REP TIS PAP (REFL ) HPV MRNA E6/E7 statement of adequacy: normal Satis facto ry for evalu ation . Endoc ervic al/tr ansfo rmati on zone compo nent absen t. Age and/o r menst rual statu s not provi ded Not Available [address], [address], 02/10/2025 16:01:40 02/05/20 25 02/10/2025 THINP REP TIS PAP (REFL ) HPV MRNA E6/E7 interpretati on/result: normal Cytol ogy Resul ts: Negat seven for intra epith elial lesio n or mallizy farah . Not Available [address], [address], 02/10/2025 16:01:40 02/05/20 25 02/10/2025 THINP REP TIS PAP (REFL ) HPV MRNA E6/E7 comment: normal This Pap test has been evalu ated with compu ter vianey ric techn ology . Not Available [facility] [address] [address] [place], [address], 02/10/2025 16:01:40 02/05/20 25 02/10/2025 THINP REP TIS PAP (REFL ) HPV MRNA E6/E7 cytotechnolo gist: normal JAF, CT( CP) CT Scree harper Locat ion: [address] [address] [place] [address] Not Available [facility] [address] [address] [place], [address], 02/10/2025 16:01:40 02/05/20 25 02/10/2025 THINP REP TIS PAP (REFL ) HPV MRNA E6/E7 comment EXPLA NATOR Y NOTE: The Pap is a scree harper test for cervi sara cance r. It is not a diagn ostic test and is subje ct to false negat seven and false posit seven resul ts. It is most relia ble when a satis facto ry sampl e, regul nayana obtai faisal, is submi tted with relev ant clini sara findi ngs and histo ry, and when the Pap resul t is evalu ated along with histo stephanie and curre nt clini sara infor matio n. Not Available [address] [address] [place], [address], 02/10/2025 16:01:40 02/05/20 25 02/04/2025 CT + NG + TV, DNA, urine /swab Chlamydia negati ve Not Available [facility] ([facility] [address] [place], [address], 02/03/2025 17:49:54 02/05/20 25 02/04/2025 CT + NG + TV, DNA, urine /swab Gonorrhea negati ve Not Available [facility] ([facility]) [address] [place], [address], 02/03/2025 17:49:54 02/05/2002/04/2025 CT + NG + TV, DNA, urine /swab Trichomonas negati ve Not Available [facility] ([facility]) [address] [place], [address], 02/03/2025 17:49:54 05/27/2005/27/2025 CBC WBC 7.5 x10 4.0-10 .5 Not Available [facility] [address] [address], [place], [address], 05/27/2025 13:18:09 05/27/2005/27/2025 CBC RBC 3.63 x10 3.50-5 .50 Not Available [facility] [address] [facility] [address], [place], [address], 05/27/2025 13:18:09 05/27/2005/27/2025 CBC HGB 11.3 g/dL 12.0-1 6.0 low Not Available [facility] [address] [address], [place], [address], 05/27/2025 13:18:09 05/27/2005/27/2025 CBC HCT 34.6 % 37.0-4 7.0 low Not Available [facility] [address] [facility] 1, [place], [address], 05/27/2025 13:18:09 05/27/2005/27/2025 CBC MCV 95.4 fL 80.0-9 9.9 Not Available [facility] [address] [facility], [place], [address], 05/27/2025 13:18:09 05/27/2005/27/2025 CBC MCH 31.1 pg 27.0-3 2.0 Not Available [facility] [address] [facility] Jul[address] [facility] [address], [place], [address], 05/27/2025 13:18:09 05/27/20 25 05/27/2025 CBC MCHC 32.7 g/dL 32.0-3 6.0 Not Available [facility] [address], [place], [address], 05/27/2025 13:18:05/27/2005/27/2025 CBC RDW 12.7 % 11.5-1 4.5 Not Available [facility] [address], [place], [address], 05/27/2025 13:18:05/27/2005/27/2025 CBC plt 232.5 x10 140.0- 451.0 Not Available [facility] [address] [facility] [address], [place], [address], 05/27/2025 13:18:05/27/2005/27/2025 CBC lymphocytes % 19.6 % 20.0-5 0.0 low Not Available [facility] [address] [facility] [address], [place], [address], 05/27/2025 13:18:05/27/2005/27/2025 CBC granulcytes % 73.2 % 30.0-7 0.0 high Not Available [facility] [address] [facility] [address], [place], [address], 05/27/2025 13:18:05/27/2005/27/2025 CBC monocytes % 6.3 % 2.0-16 .0 Not Available [facility] [address] [facility] [address], [place], [address], 05/27/2025 13:18:09 05/27/20 25 05/27/2025 CBC granulcytes# 5.5 x10 Not Jennifer ilable [facility] [address] [facility] 1, [place], [address], 05/27/2025 13:18:09 05/27/20 25 05/27/2025 CBC lymphocytes # 1.5 x10 Not Available [facility] [address] [facility] [address], [place], [address], 05/27/2025 13:18:09 05/27/20 25 05/27/2025 CBC monocytes # 0.5 x10 Not Avai lable [facility] [address] [facility] [address], [place], [address], 05/27/2025 13:18:09 05/27/20 25 05/27/2025 GLUCO SE SCREE N glucose screen 108.0 mg/dL Not Available [address] [address], [place], [address], 05/27/2025 14:42:22 01/27/20 25 01/13/2025 US, obste tric, 1st trime ster No observ ation record ed. [facility] ([facility]) [address] [place], [address], 01/27/2025 09:10:51 04/05/20 25 04/04/2025 US, obste tric, 2nd trime ster No observ ation record ed. [facility] [address] [place], [address], 04/06/2025 13:07:14 Result Notes None recorded. Problems Name Problem SNOMED Code Status Onset Date Resolution Date Notes Provider Name and Address Organization Details Recorded Time History of musculoske letal disease 437267329 Active 2024 scoliosis, chiari malformati on TREBA NEUSCHWAN ROD [facility], [place] [facility] 10:52:08 Normal 93422249 Active 2024 EDDIE argueta, [facility], [place] 18:14:25 Heartburn 74358887 Active 2024 Que Gaitan MD [address] [place] [address], [address], [facility], [place] 16:07:03 Problem Notes None recorded. Procedures Surgical History Date Name Laterality Status Provider Name and Address Organization Details Recorded Time 02/05/20 Date of Last Pap Smear completed TUNDE CANSECO [facility], [place] 06/24/2025 11:15:48 procedure on back completed EDDIE KHANH [facility], [place] 12/27/2024 09:29:58 Imaging Results None recorded. Procedure Notes None recorded. Medical Equipment None Reported. Allergies No known drug allergies Medications Name Sig Start Date Stop Date Status Note LastModified by Organization Details LastModified Time fluconazole 150 mg tablet TAKE 1 TABLET BY MOUTH EVERY 3 DAYS FOR 2 DOSES. MAY REPEAT SECOND DOSE 72 HOURS AFTER FOR 1 DOSE IF SYMPTOMS PERSIST 12/27 completed Not Available Not Available Not Available amoxicillin 500 mg tablet TAKE 2 TABLETS BY MOUTH TWICE DAILY FOR 10 DAYS 04/04 completed Not Available Not Available Not Available famotidine 20 mg tablet TAKE 1 TABLET BY MOUTH TWICE DAILY 08/02 completed Not Available Not Available Not Available tacrolimus 0.1 % topical ointment APPLY A THIN LAYER TO CLEAN DRY RASH ON FACE TWICE DAILY NEEDED 12/27 completed Not Available Not Available Not Available omeprazole 20 mg capsule,del ayed release TAKE 1 CAPSULE BY MOUTH ONCE DAILY active Not Available Not Available No t Available hydrocortis one 2.5 % topical cream APPLY TO THE AFFECTED AREA UNDER ARMS TWICE DAILY NEEDED . NO MORE THAN 2 WEEKS PER MONTH. 12/27 completed Not Available Not Available Not Available methylpredn isolone 4 mg tablets in a dose pack TAKE DIRECTED ON PACKAGE 12/27 completed Not Available Not Available Not Available Vitamin 27 mg iron-0.8 mg tablet Take 1 tablet every day by oral route. active Not Available Not Available No t Available cyclobenzap rine 5 mg tablet TAKE 1 TABLET BY MOUTH TWICE DAILY NEEDED FOR MUSCLE SPASM 12/27 completed Not Available Not Available Not Available Vitals Date Recorded Body height Body mass index (BMI) Body weight Respiratory rate Heart rate Oxygen saturation Body temperature Systolic And Diastolic Provider Name and Address Organization Details Last Updated DateTime 170.18 cm 24.5 kg/m2 17831.2 1 g 18 /min 94 /min 98 % 98.1 [degF] 114/68 mm[Hg] EDDIE CASSIDY [facility]CJenniffer 15:11:00 Social History Question Answer Notes LastModified by [employer] Details LastModified Time Tobacco Smoking Status Never Smoker EDDIE [facility]ASS[facility]Y [facility], [place] [facility]CJenniffer 12/27/2024 09:32:58 Are You Blind Or Do You Have Difficulty Seeing? No Information not available 12/27/2024 Are You Deaf Or Do You Have Serious Difficulty Hearing? No Information not available 12/27/2024 What Was The Date Of Your Most Recent Tobacco Screening? 02/04/2025 [email or web address] Information not available 02/04/2025 What Is Your Relationship Status? Information not available 12/27/2024 Are You Sexually Active? Yes Information not available 12/27/2024 Do You Have Difficulty Walking Or Climbing Stairs? No Information not available 12/27/2024 Sex: Unknown Functional Status Question Answer Note LastModified by [employer] Details LastModified Time Do you use any illicit or recreational drugs? No Information not available 12/27/2024 Do you or have you ever used any other forms of tobacco or nicotine? No Information not available 12/27/2024 What is your level of alcohol consumption? None Information not available 12/27/2024 Are you currently employed? Yes Information not available 12/27/2024 Do you have transportation difficulties? No Information not available 12/27/2024 Are you able to walk independently without assistance or assistive devices? YESWOREST Information not available 12/27/2024 Do you have difficulty doing errands alone? No Information not available 12/27/2024 Are you able to care for yourself independently? Yes Information not available 12/27/2024 What is your occupation? teacher Information not available 12/27/2024 Do you have difficulty dressing, bathing, grooming, or toileting? No Information not available 12/27/2024 Mental Status Question Answer Note LastModified by Organization D etails LastModified Time Do you have difficulty concentrating, remembering or making decisions? No Information no t available 12/27/2024 Family History Relationship Description Onset Age of this Age Resolved Age Notes LastModified by Organization Details LastModified Time Mother Essential hypertension Not available 09:28:32 Medical History No medical history recorded. Gynecological History Statement/Question Response Abnormal Pap N Date of Last Pap Smear 02/04/2025 Date of LMP 11/12/2024 LMP Definite Obstetrics History GPAL:G 1 P 0 0 0 0 Immunizations Vaccine Type Date Status Note Provider Nam e and Address Organization Details Recorded Time RSV, bivalent, protein subunit RSVpreF, diluent reconstituted, 0.5 mL, PF 5 completed Not Available [facility] 06/24/[facility]25 12:09:16 [facility] 5 completed Not [facility] 06/24/[facility]25 12:09:16 COVID-19, mRNA, LNP-S, PF, 30 mcg/0.3 mL dose 1 completed Not Available [facility] 08/12/2025 10:30:59 COVID-19, mRNA, LNP-S, PF, 30 mcg/0.3 mL dose 1 completed Not Available [facility] 08/12/2025 10:30:59 Influenza, split virus, quadrivalent, PF 3 completed Not Available [facility] 08/12/2025 10:30:59 Influenza, MDCK, trivalent, preservative 4 completed Not Available [facility] 08/12/2025 10:30:59 Past Encounters Encounter ID Performer Location Encounter Start Date Encounter Closed Date Diagnosis/Indication Diagnosis SNOMED-CT Code Diagnosis ICD10 Code Diagnosis IMO Codes Diagnosis Note [id number] Que Gaitan MD [facility] ([facility]) [address] [place] [address] [phone] 05/12/2025 15:56:55 05/17/2025 16:53:36 Normal 60692856 Z34.02 [id number] Gestation period, 25 weeks 67257515 Z3A.25 3902347 Heartburn 10020948 R12 35934 [id number] Que Gaitan MD [facility] ([facility]) [address] [place] [address] [phone] 05/27/2025 10:12:40 05/30/2025 10:30:26 Gestation period, 28 weeks 38568496 Z3A.28 [id number] Que Gaitan MD [facility] ([facility]) [address] [place] [address] [phone] 05/27/2025 10:17:05 05/27/2025 11:37:07 Normal 55862405 Z34.03 [id number] Gestation period, 28 weeks 55174273 Z3A.28 [id number] Que Gaitan MD [facility] ([facility]) [address] [place] [address] [phone] 06/10/2025 14:48:16 06/10/2025 15:32:58 Normal 31175589 Z34.03 [id number] Gestation period, 30 weeks 11736195 Z3A.30 [id number] Health Concerns Section Related Observation LastModified by Organization Detai ls LastModified Time None Recorded Concern Status LastModified by Organization Details LastModified Time None Recorded Payers Encounter Date Sequence Insurance Name Policy Number Policy [place] Covered Member ID Salinas Member ID Guarantor Name 06/10/2025 1 [employer] (PPO) [id number] Jimena Richards [id number] Jimena Richards Notes Date Note Type Note Provider Name and Address Organization Details Recorded Time 06/10/2025 text/html jr ob routineRep orted by PatientHPIFor associated symptoms, patient reportsedema (feet with prolonged standing)but reportsno abdominal pain,no cramping,no contractions,normal movement,no bleeding,no vaginal discharge,no vaginal/vulvar itching or irritation,no dysuria,no frequency,no urgency,no hematuria,no fever,no nausea,no emesis,no constipation,no diarrhea/loose stool,no visual changes,no headache,no dizziness, andno breathlessness.heartbu rn- improved,low back pain, bilateral hip pain, vaginal pressure, pelvic discomfortDenies any tobacco, nicotine, alcohol, or drug useROS as noted in the HPI Que Gaitan MD [address] [place] [address], [phone], [facility] 06/10/2025 15:29:43 OBGyn Episode Ob Episode Information Episode Created Date Number of Fetuses Patient Bloodtype Patient rh Status Prepregnancy Weight lbs Domestic Partner Domestic Partner Phone Father Name Webbing Weaver Status 12/28/19 1 A Positive Davy OPEN Fetus Data First Name Last Name Admitted to NICU Weight (g) Sex Living Outcome Pediatric Complications Fetus ID Race Codes Race Delivery Type [id number] Problems Problem Notes Epi consult 08/02/25 Problem Name Start Date End Date Resolution Snomed Code Not e Normal 04/03/2025 [id number] Candida Calculation Initial Candida Date Initial Exam Date Initial Exam Provider Initial Ultrasound Date Last Menstrual Period Date Ultra Sound Weeks Gestation 08/19/2025 12/27/2024 01/13/2025 11/12/2024 8 Eighteen To Twenty Week Candida Update Ultra Sound Date Fundal Height At Umbil Quickening Date Ultra Sound Latest Weeks Gestation Final Candida Confirmed By Final Candida Confirmed Date Final Candida Date Ultra Sound Latest Days Gestation 0 01/25/2025 08/19/20 25 0 Pre- Flowsheet Flowsheet Date 12/27/2024 Kemp Score Blood Edema Fundus Height Fundus Units Glucose Ketones Leukocytes Nitrite Labor Signs Protein Cervic Dilation Cervic Effacement Cervic Station Type Weight in lbs Pre/Post Dialysis Refused Weight 144.369567028277 BP Diastolic BP Location Tested BP Systolic BP Type 78 L arm 136 Fetus Heart Rate Present Fetus Movement A No Comments OBI Flowsheet Date 01/13/2025 Kemp Score Blood Edema Fundus Height Fundus Units Glucose Ketones Leukocytes Nitrite Labor Signs Protein Cervic Dilation Cervic Effacement Cervic Station Type Weight in lbs Pre/Post Dialysis Refused BP Diastolic BP Location Tested BP Systolic BP Type Fetus Heart Rate Present Fetus Movement Comments u/s on 01/13/25, CANDIDA 08/19/25, EGA 8.6 Flowsheet Date 02/04/2025 Kemp Score Blood Edema Fundus Height Fundus Units Glucose Ketones Leukocytes Nitrite Labor Signs Protein Cervic Dilation Cervic Effacement Cervic Station Type Weight in lbs Pre/Post Dialysis Refused Weight 144.63622152842 BP Diastolic BP Location Tested BP Systolic BP Type 74 120 sitting Fetus Heart Rate Present A 166 Present Fetus Movement Comments NOB, fatigue, breast tendern ess, back pain, fatigue Flowsheet Date 03/02/2025 Kemp Score Blood Edema Fundus Height Fundus Units Glucose Ketones Leukocytes Nitrite Labor Signs Protein Cervic Dilation Cervic Effacement Cervic Station Type Weight in lbs Pre/Post Dialysis Refused BP Diastolic BP Location Tested BP Systolic BP Type Fetus Heart Rate Present Fetus Movement Comments Flowsheet Date 03/09/2025 Kemp Score Blood Edema Fundus Height Fundus Units Glucose Ketones Leukocytes Nitrite Labor Signs Protein Cervic Dilation Cervic Effacement Cervic Station none none Negative neg Type Weight in lbs Pre/Post Dialysis Refused Weight 144.823959821782 BP Diastolic BP Location Tested BP Systolic BP Type 70 120 sitting Fetus Heart Rate Present A 158 Present Fetus Movement A Yes Comments mild abdominal pain,dizzines s,breast tenderness Flowsheet Date 04/04/2025 Kemp Score Blood Edema Fundus Height Fundus Units Glucose Ketones Leukocytes Nitrite Labor Signs Protein Cervic Dilation Cervic Effacement Cervic Station Type Weight in lbs Pre/Post Dialysis Refused BP Diastolic BP Location Tested BP Systolic BP Type Fetus Heart Rate Present Fetus Movement Comments u/s on 04/04/25, CANDIDA 08/17/25, EGA 20.5, placenta anterior, no previa or abruption. Unremarkable screening survey of anatomy Flowsheet Date 04/04/2025 Kemp Score Blood Edema Fundus Height Fundus Units Glucose Ketones Leukocytes Nitrite Labor Signs Protein Cervic Dilation Cervic Effacement Cervic Station 21 cm none none Negative neg Type Weight in lbs Pre/Post Dialysis Refused Weight 150.097264574256 BP Diastolic BP Location Tested BP Systolic BP Type 76 120 sitting Fetus Heart Rate Present A 162 Present Fetus Movement A Yes Comments heartburn,breast tenderness, low back pain, right rib pain Flowsheet Date 05/12/2025 Kemp Score Blood Edema Fundus Height Fundus Units Glucose Ketones Leukocytes Nitrite Labor Signs Protein Cervic Dilation Cervic Effacement Cervic Station 26 cm trace trace 1+ Type Weight in lbs Pre/Post Dialysis Refused Weight 152.048909392387 BP Diastolic BP Location Tested BP Systolic BP Type 96 L arm 150 70 L arm 128 Fetus Heart Rate Present A 160 Present Fetus Movement A Yes Comments heartburn, left hip pain, na usea, swelling feet Flowsheet Date 05/27/2025 Kemp Score Blood Edema Fundus Height Fundus Units Glucose Ketones Leukocytes Nitrite Labor Signs Protein Cervic Dilation Cervic Effacement Cervic Station Type Weight in lbs Pre/Post Dialysis Refused BP Diastolic BP Location Tested BP Systolic BP Type Fetus Heart Rate Present Fetus Movement Comments Flowsheet Date 05/27/2025 Kemp Score Blood Edema Fundus Height Fundus Units Glucose Ketones Leukocytes Nitrite Labor Signs Protein Cervic Dilation Cervic Effacement Cervic Station 28 cm none trace trace Type Weight in lbs Pre/Post Dialysis Refused Weight 155.44975810497 BP Diastolic BP Location Tested BP Systolic BP Type 82 132 Fetus Heart Rate Present A 164 Present Fetus Movement A Yes Comments low back pain, left hip pain , swelling in feet with prolonged standing Flowsheet Date 06/10/2025 Kemp Score Blood Edema Fundus Height Fundus Units Glucose Ketones Leukocytes Nitrite Labor Signs Protein Cervic Dilation Cervic Effacement Cervic Station trace trace trace Type Weight in lbs Pre/Post Dialysis Refused Weight 156.160649053565 BP Diastolic BP Location Tested BP Systolic BP Type 68 114 Fetus Heart Rate Present A 160 Present Fetus Movement A Yes Comments low back pain, pain in hips, pelvic discomfort, swelling in feet, vaginal pressure Flowsheet Date 06/21/2025 Kemp Score Blood Edema Fundus Height Fundus Units Glucose Ketones Leukocytes Nitrite Labor Signs Protein Cervic Dilation Cervic Effacement Cervic Station Type Weight in lbs Pre/Post Dialysis Refused BP Diastolic BP Location Tested BP Systolic BP Type Fetus Heart Rate Present Fetus Movement Comments Flowsheet Date 06/24/2025 Kemp Score Blood Edema Fundus Height Fundus Units Glucose Ketones Leukocytes Nitrite Labor Signs Protein Cervic Dilation Cervic Effacement Cervic Station 31 cm none none Negative Yazoo Carr trace Type Weight in lbs Pre/Post Dialysis Refused Weight 154.323709558997 BP Diastolic BP Location Tested BP Systolic BP Type 74 132 sitting Fetus Heart Rate Present A 144 Present Fetus Movement A Yes Comments heartburnm sob, hip/back/pel christian pain, vaginal pressure, RSV and TDap given today Flowsheet Date 07/07/2025 Kemp Score Blood Edema Fundus Height Fundus Units Glucose Ketones Leukocytes Nitrite Labor Signs Protein Cervic Dilation Cervic Effacement Cervic Station 32 cm none none Negative Iggy Carr trace Type Weight in lbs Pre/Post Dialysis Refused Weight 155.08259549542 BP Diastolic BP Location Tested BP Systolic BP Type 84 132 sitting Fetus Heart Rate Present A 148 Fetus Movement A Yes Comments vaginal discharge/pressure, back pain, sob, pelvic pain, sob, dizziness, Flowsheet Date 07/21/2025 Kemp Score Blood Edema Fundus Height Fundus Units Glucose Ketones Leukocytes Nitrite Labor Signs Protein Cervic Dilation Cervic Effacement Cervic Station none trace Negative Iggy Carr trace Type Weight in lbs Pre/Post Dialysis Refused Weight 169.709272103191 BP Diastolic BP Location Tested BP Systolic BP Type 80 134 sitting Fetus Heart Rate Present A 154 Present Fetus Movement A Yes Comments low back pain, pelvic pain, vaginal pressure,sob,edema feet, occ nausea/vomiting, heartburn, group B today, epi consult scheduled for 08/02/25 Flowsheet Date 07/25/2025 Kemp Score Blood Edema Fundus Height Fundus Units Glucose Ketones Leukocytes Nitrite Labor Signs Protein Cervic Dilation Cervic Effacement Cervic Station Type Weight in lbs Pre/Post Dialysis Refused BP Diastolic BP Location Tested BP Systolic BP Type Fetus Heart Rate Present Fetus Movement Comments Group B strep NegativeOB rec ords sent Flowsheet Date 07/29/2025 Kemp Score Blood Edema Fundus Height Fundus Units Glucose Ketones Leukocytes Nitrite Labor Signs Protein Cervic Dilation Cervic Effacement Cervic Station 35 cm none trace Negative Yazoo Carr neg 0cm -2 Type Weight in lbs Pre/Post Dialysis Refused Weight 165.134292340541 BP Diastolic BP Location Tested BP Systolic BP Type 76 140 sitting Fetus Heart Rate Present A 144 Present Fetus Movement A Yes Comments abdominal pain/cramping, swathi k,pelvic,hip pain, vaginal pressure,N/V, dizziness,edema in feet Flowsheet Date 08/02/2025 Kemp Score Blood Edema Fundus Height Fundus Units Glucose Ketones Leukocytes Nitrite Labor Signs Protein Cervic Dilation Cervic Effacement Cervic Station none none Iggy Carr 1+ Type Weight in lbs Pre/Post Dialysis Refused Weight 163.109365671804 BP Diastolic BP Location Tested BP Systolic BP Type 88 136 Fetus Heart Rate Present A 148 Present Fetus Movement A Yes Comments vaginal and pelvic pressure, swelling in feet, hip pain Flowsheet Date 08/12/2025 Kemp Score Blood Edema Fundus Height Fundus Units Glucose Ketones Leukocytes Nitrite Labor Signs Protein Cervic Dilation Cervic Effacement Cervic Station 38 cm none Yazoo Carr neg 1cm 80% -3 Type Weight in lbs Pre/Post Dialysis Refused Weight 164.665693064223 BP Diastolic BP Location Tested BP Systolic BP Type 100 160 96 154 96 148 Fetus Heart Rate Present A 152 Fetus Movement A Yes Comments irreg. contractions, vaginal pressure, pelvic pain, back pain. swelling in feet, Headaches, dizziness Menstrual History Last Menstrual Date Menses Monthly On Bcp Conception Prior Menses Frequency Hcg Plus Date Menarche Onset Age 0211/12/2024 Genetic Screening And Infection History Question Response Note Patient's Age Will Be 35 Years Or Older At Estim ated Date of Delivery false Thalassemia (Greenlandic, Kenyan, Mediterranean, Or Background): MCV < 80 false Neural Tube Defect (Meningomyelocele, Spina Bifi da, Or Anencephaly) false Congenital Heart Defect false Down Syndrome false Jacob-Sachs (eg, Bahai, Cajun, Guamanian-Comanche) f alse Mira Disease false Sickle Cell Disease Or Trait () false Hemophilia Or Other Blood Disorders false Muscular Dystrophy false Cystic Fibrosis false Milton's Chorea false Intellectual Disability/Autism false If Yes, Was Person Tested For Fragile X? false Other Inherited Genetic Or Chromosomal Disorder false Maternal Metabolic Disorder (eg, Type 1 Diabetes , PKU) false Patient Or Baby's Father Had A Child With Defects Not Listed Above false Recurrent Loss, Or A Stillbirth false Medications (including Suppl ements, Vitamins, Herbs, OTC Drugs), Illicit/Recreational Drugs, Alcohol true Any Other Genetic History false Live With Someone With TB Or Exposed To TB false Patient Or Partner Has History Of Genital Herpes false Rash Or Viral Illness Since Last Menstrual Perio d false History Of STD, Gonorrhea, Chlamydia, HPV, Syphi lis false Other Infection History false History of HIV false History of Hepatitis false Prior GBS-infected child false Hemoglobinopathy Or Carrier false Other Structural Defect false Recent Travel History Outside of Country false Mental Retardation/Autism false Delivery Information Delivery Date Delivery Type Labor Anesthesia Weeks Gestation Incision Type Labor Labor Length Hrs Delivered By Post Complications Tubal Sterilization Discharge Date Comments Discharge Information Feeding Method Contraceptive Method Maternal HG B and HCT Levels
--- OUTSIDE RECORDS SUMMARY | 2025-08-15 17:13 | XMS_ITS | Continuity of Care Document ---
Author Organization [facility] Gabriel Saenz [facility], LCelena, [facility] ([facility]) Address [address] [place] [address] Assessment No assessment recorded. Plan of Treatment [...] ETE color YELLOW yellow normal Not Available [facility] [address] [place], [address], 02/08/2025 11:05:21 02/05/20 25 02/08/2025 URINA LYSIS , COMPL ETE appearance CLOUDY clear abnormal Not Available [facility] [address] [place], [address], 02/08/2025 11:05:21 02/05/2002/08/2025 URINA LYSIS , COMPL ETE specific gravity 1.024 1.001- 1.035 normal Not Available [facility] [address] [place], [address], 02/08/2025 11:05:21 02/05/20 25 02/08/2025 URINA LYSIS , COMPL ETE pH 6.5 5.0-8. 0 normal Not Available [address], [address], 02/08/2025 11:05:21 02/05/20 25 02/08/2025 URINA LYSIS , COMPL ETE glucose NEGATI VE negati ve normal Not Available [address], [address], 02/08/2025 11:05:21 02/05/20 25 02/08/2025 URINA LYSIS , COMPL ETE bilirubin NEGATI VE negati ve normal Not Available [address], [address], 02/08/2025 11:05:21 02/05/20 25 02/08/2025 URINA LYSIS , COMPL ETE ketones NEGATI VE negati ve normal Not Available [address], [address], 02/08/2025 11:05:21 02/05/20 25 02/08/2025 URINA LYSIS , COMPL ETE occult blood NEGATI VE negati ve normal Not Available [facility] [address], [address], 02/08/2025 11:05:21 02/05/20 25 02/08/2025 URINA LYSIS , COMPL ETE protein NEGATI VE negati ve normal Not Available [facility] [address], [address], 02/08/2025 11:05:21 02/05/20 25 02/08/2025 URINA LYSIS , COMPL ETE nitrite NEGATI VE negati ve normal Not Available [facility] [address], [address], 02/08/2025 11:05:21 02/05/20 25 02/08/2025 URINA LYSIS , COMPL ETE leukocyte esterase NEGATI VE negati ve normal Not Available [address], [address], 02/08/2025 11:05:21 02/05/20 25 02/08/2025 URINA LYSIS , COMPL ETE WBC 6-10 /hpf < or = 5 abnormal Not Available [address], [address], 02/08/2025 11:05:21 02/05/20 25 02/08/2025 URINA LYSIS , COMPL ETE RBC 0-2 /hpf < or = 2 normal Not Available [address], [address], 02/08/2025 11:05:21 02/05/20 25 02/08/2025 URINA LYSIS , COMPL ETE squamous epithelial cells 10-20 /hpf < or = 5 abnormal Not Available [address], [address], 02/08/2025 11:05:21 02/05/20 25 02/08/2025 URINA LYSIS , COMPL ETE bacteria MANY /hpf none seen abnormal Not Available [address], [address], 02/08/2025 11:05:21 02/05/20 25 02/08/2025 URINA LYSIS , COMPL ETE hyaline cast NONE SEEN /lpf none seen normal Not Available [address], [address], 02/08/2025 11:05:21 02/05/20 25 02/08/2025 URINA LYSIS , COMPL ETE note This urine was arash zed for the prese nce of WBC, RBC, bacte octavia, casts , and other forme d eleme nts. Only those eleme nts seen were repor ric. Not Available [address], [address], 02/08/2025 11:05:21 02/05/20 25 02/08/2025 CBC (INCL UDES DIFF/ PLT) white blood cell count 6.8 thous and/u L 3.8-10 .8 normal Not Available [address], [address], 02/08/2025 11:05:22 02/05/20 25 02/08/2025 CBC (INCL UDES DIFF/ PLT) red blood cell count 4.14 moriah on/uL 3.80-5 .10 normal Not Available [address], [address], 02/08/2025 11:05:22 02/05/20 25 02/08/2025 CBC (INCL UDES DIFF/ PLT) hemoglobin 12.8 g/dL 11.7-1 5.5 normal Not Available [address], [address], 02/08/2025 11:05:22 02/05/20 25 02/08/2025 CBC (INCL UDES DIFF/ PLT) hematocrit 39.4 % 35.0-4 5.0 normal Not Available [address], [address], 02/08/2025 11:05:22 02/05/20 25 02/08/2025 CBC (INCL UDES DIFF/ PLT) MCV 95.2 fL 80.0-1 00.0 normal Not Available [address], [address], 02/08/2025 11:05:22 02/05/20 25 02/08/2025 CBC (INCL UDES DIFF/ PLT) MCH 30.9 pg 27.0-3 3.0 normal Not Available [facility] [address], [address], 02/08/2025 11:05:22 02/05/20 25 02/08/2025 CBC (INCL UDES DIFF/ PLT) MCHC 32.5 g/dL 32.0-3 6.0 normal For adult s, a sligh t decre ase in the calcu lated MCHC value (in the range of 30 to 32 g/dL) is most likel y not clini rafy signi fican t; carina er, it shoul d be inter prete d with cauti on in virtua voorhees n with other red cell león eters and the patie nt's clini sara condi tion. Not Available [facility] [address], [address], 02/08/2025 11:05:22 02/05/20 25 02/08/2025 CBC (INCL UDES DIFF/ PLT) RDW 12.4 % 11.0-1 5.0 normal Not Available [facility] [address], [address], 02/08/2025 11:05:22 02/05/20 25 02/08/2025 CBC (INCL UDES DIFF/ PLT) platelet count 250 thous and/u L 140-40 0 normal Not Available [facility] [address], [address], 02/08/2025 11:05:22 02/05/20 25 02/08/2025 CBC (INCL UDES DIFF/ PLT) MPV 9.9 fL 7.5-12 .5 normal Not Available [address], [address], 02/08/2025 11:05:22 02/05/20 25 02/08/2025 CBC (INCL UDES DIFF/ PLT) absolute neutrophils 4372 cells /uL 1500-7 800 normal Not Available [address], [address], 02/08/2025 11:05:22 02/05/20 25 02/08/2025 CBC (INCL UDES DIFF/ PLT) absolute lymphocytes 1795 cells /uL 850-39 00 normal Not Available [address], [address], 02/08/2025 11:05:22 02/05/20 25 02/08/2025 CBC (INCL UDES DIFF/ PLT) absolute monocytes 503 cells /uL 200-95 0 normal Not Available [address], [address], 02/08/2025 11:05:22 02/05/20 25 02/08/2025 CBC (INCL UDES DIFF/ PLT) absolute eosinophils 82 cells /uL 15-500 normal Not Available [address], [address], 02/08/2025 11:05:22 02/05/20 25 02/08/2025 CBC (INCL UDES DIFF/ PLT) absolute basophils 48 cells /uL 0-200 normal Not Available [address], [address], 02/08/2025 11:05:22 02/05/20 25 02/08/2025 CBC (INCL UDES DIFF/ PLT) neutrophils 64.3 % normal Not Available [address], [address], 02/08/2025 11:05:22 02/05/20 25 02/08/2025 CBC (INCL UDES DIFF/ PLT) lymphocytes 26.4 % normal Not Available [address], [address], 02/08/2025 11:05:22 02/05/20 25 02/08/2025 CBC (INCL UDES DIFF/ PLT) monocytes 7.4 % normal Not Available [address], [address], 02/08/2025 11:05:22 02/05/20 25 02/08/2025 CBC (INCL UDES DIFF/ PLT) eosinophils 1.2 % normal Not Available [facility] [address] [address] [place], [address], 02/08/2025 11:05:22 02/05/20 25 02/08/2025 CBC (INCL UDES DIFF/ PLT) basophils 0.7 % normal Not Available [facility] [address] [place], [address], 02/08/2025 11:05:22 02/05/20 25 02/08/2025 HEPAT ITIS B SURFA CE ANTIG EN W/REF L CONFI RM hepatitis B surface antigen NON-RE ACTIVE non-re active normal For addit ional infor hiwot girard, hugh e refer to http: //formerly [facility], [facility]–1983karlos girard.mini stdia gnost ics.c om/fa q/FAQ 202 (This link is being provi ded for infor matio nal/ educa nia l purpo ses only. ) Not Available [facility] [address], [address], 02/08/2025 11:05:23 02/05/20 25 02/08/2025 HEPAT ITIS [...] a test for HCV RNA (test code 87393 ) is sugge sted. For addit ional infor matkarlos n pleas e refer to http: //formerly [facility], [facility]–1983karlos danielle stdia gnost ics.c om/fa q/FAQ 22v1 (This link is being provi ded for infor matio nal/ educa nia l purpo ses only. ) Not Available [facility] [address] [address] [place], [address], 02/08/2025 11:05:24 02/05/2002/08/2025 RUBEL LA AB (IGG) [...] with rubel la virus . Not Available [facility] [address] [address], [place], [address], 02/08/2025 11:05:24 02/05/2002/08/2025 HIV 1/2 ANTIG EN/AN [...] less than 2 years old. Not Available [facility] [address] [place], [address], 02/08/2025 11:05:25 02/05/20 25 02/08/2025 RPR (DX) W/REF L TITER AND T. PALLI DUM AB, IA RPR (DX) w/refl titer and confirmatory testing NON-RE ACTIVE non-re active normal No labor atory evide nce of syphi lis. If recen t expos ure is suspe cted, submi t a new sampl e in 2-4 weeks . Not Available [facility] [address] [place], [address], 02/08/2025 11:05:27 02/05/20 25 02/08/2025 ANTIB RUDDY [...] alloi mmuni zed pregn amber. Not Available [address], [address], 02/08/2025 11:05:28 02/05/20 25 02/08/2025 ABO GROUP AND RH TYPE ABO group A Not Available [address] [place], [address], 02/08/2025 11:05:28 02/05/2002/08/2025 ABO GROUP AND RH TYPE Rh type RH(D) POSITI VE For addit ional hugh kearns e refer to http: //soniya quintanaQue stDia gnost ics.c om/fa q/FAQ 111 (This link is being provi ded for infor hiwot humphrey/ educa nia l purpo ses only. ) Not Available [address] [address] [address], [place], [address], 02/08/2025 11:05:28 02/05/20 25 02/08/2025 DRUG MONIT OR, PANEL 1, SCREE N, URINE amphetamines NEGATI VE NG/mL <500 See Note A See Note A Not Available [address] [address] [address], [place], [address], 02/08/2025 11:05:29 02/05/20 25 02/08/2025 DRUG MONIT OR, PANEL 1, SCREE N, URINE barbiturates NEGATI VE NG/mL <300 See Note A See Note A Not Available [facility] [address] [address] [address], [place], [address], 02/08/2025 11:05:29 02/05/20 25 02/08/2025 DRUG MONIT OR, PANEL 1, SCREE N, URINE benzodiazepi regina NEGATI VE NG/mL <100 See Note A See Note A Not Available [facility] [address] [address] [address], [place], [address], 02/08/2025 11:05:29 02/05/20 25 02/08/2025 DRUG MONIT OR, PANEL 1, SCREE N, URINE cocaine metabolite NEGATI VE NG/mL <150 See Note A See Note A Not Available [facility] [address] [address] [address], [place], [address], 02/08/2025 11:05:29 02/05/20 25 02/08/2025 DRUG MONIT OR, PANEL 1, SCREE N, URINE marijuana metabolite NEGATI VE NG/mL <20 See Note A See Note A Not Available [facility] [address] [address] [address], [place], [address], 02/08/2025 11:05:29 02/05/20 25 02/08/2025 DRUG MONIT OR, PANEL 1, SCREE N, URINE methadone metabolite NEGATI VE NG/mL <100 See Note A See Note A Not Available [address] [address] [address], [place], [address], 02/08/2025 11:05:29 02/05/20 25 02/08/2025 DRUG MONIT OR, PANEL 1, SCREE N, URINE opiates NEGATI VE NG/mL <100 See Note A See Note A Not Available [address] [address] [address], [place], [address], 02/08/2025 11:05:29 02/05/20 25 02/08/2025 DRUG MONIT OR, PANEL 1, SCREE N, URINE oxycodone NEGATI VE NG/mL <100 See Note A See Note A Not Available [address] [address] [address], [place], [address], 02/08/2025 11:05:29 02/05/20 25 02/08/2025 DRUG MONIT OR, PANEL 1, SCREE N, URINE phencyclidin e NEGATI VE NG/mL <25 See Note A See Note A Not Available [address] [address] [address], [place], [address], 02/08/2025 11:05:29 02/05/2002/08/2025 DRUG MONIT OR, PANEL 1, SCREE N, URINE creatinine 208.5 mg/dL > or = 20.0 Not Available [address] [address] [address], [place], [address], 02/08/2025 11:05:29 02/05/2002/08/2025 DRUG MONIT OR, PANEL 1, SCREE N, URINE pH 6.6 4.5-9. 0 Not Available [address] [address] [address], [place], [address], 02/08/2025 11:05:29 02/05/2002/08/2025 DRUG MONIT OR, PANEL 1, SCREE N, URINE oxidant NEGATI VE mcg/m L <200 Not Available [address] [address] [address], [place], [address], 02/08/2025 11:05:29 02/05/20 25 02/08/2025 DRUG MONIT [...] M-F, 8am to 10pm EST Not Available [facility] [address] [address] [place], [address], 02/08/2025 11:05:30 02/05/20 25 02/08/2025 CULTU RE, URINE , ROUTI NE culture, urine, routine SEE NOTE CULTU RE, URINE , ROUTI NE Micro Numbe r: [id number] Test Statu s: Final Speci men Sourc e: Urine Speci men Quali ty: Adequ ate Resul t: No Growt h Not Available [facility] [address] [address] [place], [address], 02/08/2025 11:05:31 02/05/20 25 02/10/2025 THINP REP TIS PAP (REFL ) HPV MRNA E6/E7 clinical information: normal Pregn ant Not Available [facility] [address] [address] [place], [address], 02/10/2025 16:01:40 02/05/20 25 02/10/2025 THINP REP TIS PAP (REFL ) HPV MRNA E6/E7 LMP: normal NA Not Available [facility] [address] [address] [place], [address], 02/10/2025 16:01:40 02/05/20 25 02/10/2025 THINP REP TIS PAP (REFL ) HPV MRNA E6/E7 prev. Pap: normal NA Not Available [address] [place], [address], 02/10/2025 16:01:40 02/05/20 25 02/10/2025 THINP REP TIS PAP (REFL ) HPV MRNA E6/E7 prev. BX: normal NA Not Available [address] [place], [address], 02/10/2025 16:01:40 02/05/2002/10/2025 THINP REP TIS PAP (REFL ) HPV MRNA E6/E7 source: normal Cervi x, Endoc ervix Not Available [address], [address], 02/10/2025 16:01:40 02/05/20 25 02/10/2025 THINP REP TIS PAP (REFL ) HPV MRNA E6/E7 statement of adequacy: normal Satis facto ry for evalu ation . Endoc ervic al/tr ansfo rmati on zone compo nent absen t. Age and/o r menst rual statu s not provi ded Not Available [address], [address], 02/10/2025 16:01:40 02/05/20 25 02/10/2025 THINP REP TIS PAP (REFL ) HPV MRNA E6/E7 interpretati on/result: normal Cytol ogy Resul ts: Negat seven for intra epith elial lesio n or mallizy farah . Not Available [address], [address], 02/10/2025 16:01:40 02/05/20 25 02/10/2025 THINP REP TIS PAP (REFL ) HPV MRNA E6/E7 comment: normal This Pap test has been evalu ated with compu ter vianey ric techn ology . Not Available [facility] [address] [address] [place], [address], 02/10/2025 16:01:40 02/05/20 25 02/10/2025 THINP REP TIS PAP (REFL ) HPV MRNA E6/E7 cytotechnolo gist: normal JAF, CT( CP) CT Scree harper Locat ion: [address] [address] [place] [address] Not Available [facility] [address] [address] [place], [address], 02/10/2025 16:01:40 02/05/20 25 02/10/2025 THINP REP [...] clini sara infor matio n. Not Available [address] [address] [place], [address], 02/10/2025 16:01:40 02/05/20 25 02/04/2025 CT + NG + TV, DNA, urine /swab Chlamydia negati ve Not Available [facility] ([facility]) [address] [place], [address], 02/03/2025 17:49:54 02/05/20 25 02/04/2025 CT + NG + TV, DNA, urine /swab Gonorrhea negati ve Not Available [facility] ([facility]) [address] [place], [address], 02/03/2025 17:49:54 02/05/2002/04/2025 CT + NG + TV, DNA, urine /swab Trichomonas negati ve Not Available [facility] ([facility]) [address] [place], [address], 02/03/2025 17:49:54 05/27/2005/27/2025 CBC WBC 7.5 x10 4.0-10 .5 Not Available [facility] [address] [address], [place], [address], 05/27/2025 13:18:09 05/27/2005/27/2025 CBC RBC 3.63 x10 3.50-5 .50 Not Available [facility] [address] [facility] 1, [place], [address], 05/27/2025 13:18:09 05/27/2005/27/2025 CBC HGB 11.3 g/dL 12.0-1 6.0 low Not Available [facility] [address] [address], [place], [address], 05/27/2025 13:18:09 05/27/2005/27/2025 CBC HCT 34.6 % 37.0-4 7.0 low Not Available [facility] [address] [facility] 1, [place], [address], 05/27/2025 13:18:09 05/27/2005/27/2025 CBC MCV 95.4 fL 80.0-9 9.9 Not Available [facility] [address] [facility], [place], [address], 05/27/2025 13:18:09 05/27/2005/27/2025 CBC MCH 31.1 pg 27.0-3 2.0 Not Available [facility] [address] [facility] Juliana [facility] 1, [place], [address], 05/27/2025 13:18:09 05/27/20 25 05/27/2025 CBC MCHC 32.7 g/dL 32.0-3 6.0 Not Available [facility] [address], [place], [address], 05/27/2025 13:18:05/27/2005/27/2025 CBC RDW 12.7 % 11.5-1 4.5 Not Available [facility] [address], [place], [address], 05/27/2025 13:18:05/27/2005/27/2025 CBC plt 232.5 x10 140.0- 451.0 Not Available [facility] [address] [facility] 1, [place], [address], 05/27/2025 13:18:05/27/2005/27/2025 CBC lymphocytes % 19.6 % 20.0-5 0.0 low Not Available [facility] [address] [facility] 1, [place], [address], 05/27/2025 13:18:05/27/2005/27/2025 CBC granulcytes % 73.2 % 30.0-7 0.0 high Not Available [facility] [address] [facility] 1, [place], [address], 05/27/2025 13:18:05/27/2005/27/2025 CBC monocytes % 6.3 % 2.0-16 .0 Not Available [facility] [address] [facility] 1, [place], [address], 05/27/2025 13:18:09 05/27/20 25 05/27/2025 CBC granulcytes# 5.5 x10 Not Jennifer ilable [facility] [address] [facility] [address], [place], [address], 05/27/2025 13:18:09 05/27/20 25 05/27/2025 CBC lymphocytes # 1.5 x10 Not Available [facility] [address] [facility] [address], [place], [address], 05/27/2025 13:18:09 05/27/20 25 05/27/2025 CBC monocytes # 0.5 x10 Not Avai lable [facility] [address] [facility] [address], [place], [address], 05/27/2025 13:18:09 05/27/20 25 05/27/2025 GLUCO SE SCREE N glucose screen 108.0 mg/dL Not Available [address] [address], [place], [address], 05/27/2025 14:42:22 01/27/20 25 01/13/2025 US, obste tric, 1st trime ster No observ ation record ed. [facility] ([facility]) [address] [place], [address], 01/27/2025 09:10:51 04/05/20 25 04/04/2025 US, obste tric, 2nd trime ster No observ ation record ed. [facility] [address] [place], [address], 04/06/2025 13:07:14 Result Notes None recorded. Problems Name Problem SNOMED Code Status Onset Date Resolution Date Notes Provider Name and Address Organization Details Recorded Time History of musculoske letal disease 802786967 Active 2024 scoliosis, chiari malformati on TREBA NEUSCHWAN [facility] [place] [facility] 10:[facility]:08 Normal 68511096 Active 2024 EDDIE argueta, [facility], [facility] 18:14:25 Heartburn 77841487 Active 2024 Que Gaitan MD [address] [place] [address], [phone], [facility], Peng 16:07:03 Problem Notes None recorded. Procedures Surgical History Date Name Laterality Status Provider Name and Address Organization Details Recorded Time 02/05/20 Date of Last Pap Smear completed TUNDE CANSECO [facility] 06/24/2025 11:15:48 procedure on back completed EDDIE KHANH [facility] 12/27/2024 09:29:58 Imaging Results None recorded. [...] height Body mass index (BMI) Body weight Oxygen saturation Heart rate Respiratory rate Body temperature Systolic And Diastolic Provider Name and Address Organization Details Last Updated DateTime 170.18 cm 24.2 kg/m2 24806.0 2 g 99 % 91 /min 18 /min 98.3 [degF] 132/74 mm[Hg] TUNDE VELASCO [facility] 11:31:58 Social History Question Answer Notes LastModified by [employer] Details LastModified Time Tobacco Smoking Status Never Smoker EDDIE argueta [facility] 12/27/2024 09:32:58 Are You Blind Or Do [...] Functional Status Question Answer Note LastModified by RoomClipizat ion Details LastModified Time Do you use any [...] 0.5 mL, PF 5 completed [facility] Available [facility] 06/24/2025 12:09:16 Tdap 5 completed Not Available [facility] 06/24/2025 12:09:16 COVID-19, mRNA, LNP-S, PF, 30 mcg/0.3 mL dose 1 completed [facility] Available [facility] 08/12/2025 10:30:59 COVID-19, mRNA, LNP-S, PF, 30 mcg/0.3 mL dose 1 completed [facility] Available [facility] 08/12/2025 10:30:59 Influenza, split virus, quadrivalent, PF 3 completed [facility] Available [facility] 08/12/2025 10:30:59 Influenza, MDCK, trivalent, preservative 4 completed Not Available [facility] 08/12/2025 10:30:59 Past Encounters Encounter ID Performer Location Encounter Start Date Encounter Closed Date Diagnosis/Indication Diagnosis SNOMED-CT Code Diagnosis ICD10 Code Diagnosis IMO Codes Diagnosis Note [id number] Que Gaitan MD [facility] ([facility]) [address] [place] [id number] 05/27/2025 10:12:40 05/30/2025 10:30:26 Gestation period, 28 weeks 28311128 Z3A.28 8258049 [id number] Que Gaitan MD [facility]) [address] [place] [phone] 05/27/2025 10:17:05 05/27/2025 11:37:07 Normal 36138662 Z34.03 7547239 Gestation period, 28 weeks 24985801 Z3A.28 2668414 [id number] Que Gaitan MD [facility] ([facility]) [address] [place] [phone] 06/10/2025 14:48:16 06/10/2025 15:32:58 Normal 85052335 Z34.03 3789107 Gestation period, 30 weeks 61619409 Z3A.30 3713928 [id number] Que Gaitan MD [facility] ([facility]) [address] [place] [phone] 06/24/2025 11:00:47 06/24/2025 12:00:11 Primigravida 819323179 Z34.03 07626589 Gestation period, 32 weeks 8849936 Z3A.32 3592775 [id number] Que Gaitan MD [facility]) [address] [place] [phone] 06/21/2025 11:18:45 06/23/2025 04:01:12 Health Concerns Section Related Observation LastModified by Organization Detai ls LastModified Time None Recorded Concern Status LastModified by Organization Details LastModified Time None Recorded Payers Encounter Date Sequence Insurance Name Policy Number Policy [place] Covered Member ID Salinas Member ID Guarantor Name 06/24/2025 1 [employer] (PPO) [id number] Jimena Richards [id number] Jimena Richards Notes Date Note Type Note Provider Name and Address Organization Details Recorded Time text/html jr ob routineReported by PatientHPIFor associated symptoms, patient reportsabdominal pain,cramping,contraction s (irr),edema (feet with prolonged standing), andbreathlessnessbut reportsnormal movement,no bleeding,no vaginal discharge,no vaginal/vulvar itching or irritation,no dysuria,no frequency,no urgency,no hematuria,no fever,no nausea,no emesis,no constipation,no diarrhea/loose stool,no visual changes,no headache, andno dizziness.heartburn- improved,low back pain, bilateral hip pain, vaginal pressure, pelvic discomfortDenies any tobacco, nicotine, alcohol, or drug useROS as noted in the HPI Que Gaitan MD [address] [place] [address], [phone], [facility], [facility] 06/24/2025 11:58:42 OBGyn Episode Ob Episode Information Episode Created Date Number of Fetuses Patient Bloodtype Patient rh Status Prepregnancy Weight lbs Domestic Partner Domestic Partner Phone Father Name Charge Out Clerk Status 12/28/19 1 A Positive Davy OPEN Fetus Data First Name Last Name Admitted to NICU Weight (g) Sex Living Outcome Pediatric Complications Fetus ID Race Codes Race Delivery Type [id number] Problems Problem Notes Epi consult 08/02/25 Problem Name Start Date End Date Resolution Snomed Code Not e Normal 04/03/2025 30994284 Candida Calculation Initial Candida Date Initial Exam [...] Weight in lbs Pre/Post Dialysis Refused Weight 144.099093411462 BP Diastolic BP Location Tested BP Systolic [...] Weight in lbs Pre/Post Dialysis Refused Weight 144.51501185616 BP Diastolic BP Location Tested BP Systolic [...] Weight in lbs Pre/Post Dialysis Refused Weight 144.178377818487 BP Diastolic BP Location Tested BP Systolic [...] Weight in lbs Pre/Post Dialysis Refused Weight 150.396933976659 BP Diastolic BP Location Tested BP Systolic [...] Weight in lbs Pre/Post Dialysis Refused Weight 152.180792737122 BP Diastolic BP Location Tested BP Systolic [...] Weight in lbs Pre/Post Dialysis Refused Weight 155.58295063745 BP Diastolic BP Location Tested BP Systolic [...] Weight in lbs Pre/Post Dialysis Refused Weight [id number] BP Diastolic BP Location Tested BP Systolic [...] Cervic Station 31 cm none none Negative [place] [facility] trace Type Weight in lbs Pre/Post Dialysis Refused Weight 154.104927691597 BP Diastolic BP Location Tested BP Systolic [...] Cervic Station 32 cm none none Negative [place] [facility] trace Type Weight in lbs Pre/Post Dialysis Refused Weight 155.89468995922 BP Diastolic BP Location Tested BP Systolic BP Type 84 132 sitting Fetus Heart Rate Present A 148 Fetus Movement A Yes Comments vaginal discharge/pressure, back pain, sob, pelvic pain, sob, dizziness, Flowsheet Date 07/21/2025 Kemp Score Blood Edema Fundus Height Fundus Units Glucose Ketones Leukocytes Nitrite Labor Signs Protein Cervic Dilation Cervic Effacement Cervic Station none trace Negative [place] [facility] trace Type Weight in lbs Pre/Post Dialysis Refused Weight 169.965552178988 BP Diastolic BP Location Tested BP Systolic [...] Cervic Station 35 cm none trace Negative [place] [facility] neg 0cm -2 Type Weight in lbs Pre/Post Dialysis Refused Weight 165.879581700561 BP Diastolic BP Location Tested BP Systolic BP Type 76 140 sitting Fetus Heart Rate Present A 144 Present Fetus Movement A Yes Comments abdominal pain/cramping, swathi k,pelvic,hip pain, vaginal pressure,N/V, dizziness,edema in feet Flowsheet Date 08/02/2025 Kemp Score Blood Edema Fundus Height Fundus Units Glucose Ketones Leukocytes Nitrite Labor Signs Protein Cervic Dilation Cervic Effacement Cervic Station none none [place] [facility] 1+ Type Weight in lbs Pre/Post Dialysis Refused Weight 163.815419984491 BP Diastolic BP Location Tested BP Systolic BP Type 88 136 Fetus Heart Rate Present A 148 Present Fetus Movement A Yes Comments vaginal and pelvic pressure, swelling in feet, hip pain Flowsheet Date 08/12/2025 Kemp Score Blood Edema Fundus Height Fundus Units Glucose Ketones Leukocytes Nitrite Labor Signs Protein Cervic Dilation Cervic Effacement Cervic Station 38 cm none [place] neg 1cm 80% -3 Type Weight in lbs Pre/Post Dialysis Refused Weight 164.323517246264 BP Diastolic BP Location Tested BP Systolic [...] Estim ated Date of Delivery false Thalassemia (Nepali, Turkish, Mediterranean, Or Background): MCV < 80 false Neural Tube Defect (Meningomyelocele, Spina Bifi da, Or Anencephaly) false Congenital Heart Defect false Down Syndrome false Jacob-Sachs (eg, Sabianist, Cajun, Malay-[place]) f alse Mira Disease false Sickle Cell [...]
--- OUTSIDE RECORDS SUMMARY | 2025-08-15 17:13 | XMS_ITS | Continuity of Care Document ---
Author Organization [facility] Gabriel Saenz [facility], Peng, [facility] ([facility]) Address [address] [place] [address] Assessment No assessment recorded. Plan of Treatment Reminders Order Date Submit Date Provider Last Modified By Organization Details Last Modified Time Details Appointments POST-P ARTUM VISIT 2025 09:50A M Que Gaitan MD Not available Not available Not available Lab glucos e, QN [mass/ volume ], blood 2024 025 [facility], [address], [facility], [place], [address], 06/08/2025 17:46:05 CBC 2024 025 [facility], [address] [facility], [place], [address], 06/08/2025 17:46:05 Referral None record ed. Procedures None record ed. Surgeries None record ed. Imaging None record ed. Medication Orders None record ed. Patient TargetsNo targets recorded. Patient InstructionsNo instructions recorded. Reason for Referral None Reported. Results Created Date Observation Date Name Description Value Unit Range Abnormal Flag Note LastModifiedBy Organization Detail LastModifiedTime 02/05/2002/08/2025 URINA LYSIS , COMPL ETE color YELLOW yellow normal Not Available [employer] [facility] [address], [place], [address], 02/08/2025 11:05:21 02/05/20 25 02/08/2025 URINA LYSIS , COMPL ETE appearance CLOUDY clear abnormal Not Available [address], [address], 02/08/2025 11:05:21 02/05/20 25 02/08/2025 URINA LYSIS , COMPL ETE specific gravity 1.024 1.001- 1.035 normal Not Available [address], [address], 02/08/2025 11:05:21 02/05/20 25 02/08/2025 URINA LYSIS , COMPL ETE pH 6.5 5.0-8. 0 normal Not Available [address], [address], 02/08/2025 11:05:21 02/05/20 25 02/08/2025 URINA LYSIS , COMPL ETE glucose NEGATI VE negati ve normal Not Available [address], [address], 02/08/2025 11:05:21 02/05/20 25 02/08/2025 URINA LYSIS , COMPL ETE bilirubin NEGATI VE negati ve normal Not Available [facility] [address], [address], 02/08/2025 11:05:21 02/05/20 25 02/08/2025 URINA LYSIS , COMPL ETE ketones NEGATI VE negati ve normal Not Available [facility] [address], [address], 02/08/2025 11:05:21 02/05/20 25 02/08/2025 URINA LYSIS , COMPL ETE occult blood NEGATI VE negati ve normal Not Available [facility] [address], [address], 02/08/2025 11:05:21 02/05/20 25 02/08/2025 URINA LYSIS , COMPL ETE protein NEGATI VE negati ve normal Not Available [address], [address], 02/08/2025 11:05:21 02/05/20 25 02/08/2025 URINA LYSIS , COMPL ETE nitrite NEGATI VE negati ve normal Not Available [address], [address], 02/08/2025 11:05:21 02/05/20 25 02/08/2025 URINA LYSIS , COMPL ETE leukocyte esterase NEGATI VE negati ve normal Not Available [address], [address], 02/08/2025 11:05:21 02/05/20 25 02/08/2025 URINA LYSIS , COMPL ETE WBC 6-10 /hpf < or = 5 abnormal Not Available [address], [address], 02/08/2025 11:05:21 02/05/20 25 02/08/2025 URINA LYSIS , COMPL ETE RBC 0-2 /hpf < or = 2 normal Not Available [address], [address], 02/08/2025 11:05:21 02/05/20 25 02/08/2025 URINA LYSIS , COMPL ETE squamous epithelial cells 10-20 /hpf < or = 5 abnormal Not Available [address], [address], 02/08/2025 11:05:21 02/05/20 25 02/08/2025 URINA LYSIS , COMPL ETE bacteria MANY /hpf none seen abnormal Not Available [address], [address], 02/08/2025 11:05:21 02/05/20 25 02/08/2025 URINA LYSIS , COMPL ETE hyaline cast NONE SEEN /lpf none seen normal Not Available [address], [address], 02/08/2025 11:05:21 02/05/20 25 02/08/2025 URINA LYSIS , COMPL ETE note This urine was arash zed for the prese nce of WBC, RBC, bacte octavia, casts , and other forme d eleme nts. Only those eleme nts seen were repor ric. Not Available [address], [address], 02/08/2025 11:05:21 02/05/20 25 02/08/2025 CBC (INCL UDES DIFF/ PLT) white blood cell count 6.8 thous and/u L 3.8-10 .8 normal Not Available [address], [address], 02/08/2025 11:05:22 02/05/20 25 02/08/2025 CBC (INCL UDES DIFF/ PLT) red blood cell count 4.14 moriah on/uL 3.80-5 .10 normal Not Available [address], [address], 02/08/2025 11:05:22 02/05/20 25 02/08/2025 CBC (INCL UDES DIFF/ PLT) hemoglobin 12.8 g/dL 11.7-1 5.5 normal Not Available [address], [address], 02/08/2025 11:05:22 02/05/20 25 02/08/2025 CBC (INCL UDES DIFF/ PLT) hematocrit 39.4 % 35.0-4 5.0 normal Not Available [address], [address], 02/08/2025 11:05:22 02/05/20 25 02/08/2025 CBC (INCL UDES DIFF/ PLT) MCV 95.2 fL 80.0-1 00.0 normal Not Available [address], [address], 02/08/2025 11:05:22 02/05/20 25 02/08/2025 CBC (INCL UDES DIFF/ PLT) MCH 30.9 pg 27.0-3 3.0 normal Not Available [address], [address], 02/08/2025 11:05:22 02/05/20 25 02/08/2025 CBC (INCL UDES DIFF/ PLT) MCHC 32.5 g/dL 32.0-3 6.0 normal For adult s, a sligh t decre ase in the calcu lated MCHC value (in the range of 30 to 32 g/dL) is most likel y not clini rafy signi alba t; carina er, it shoul d be inter prete d with cauti on in corre latio n with other red cell león eters and the patie nt's clini sara condi tion. Not Available [address], [address], 02/08/2025 11:05:22 02/05/20 25 02/08/2025 CBC (INCL UDES DIFF/ PLT) RDW 12.4 % 11.0-1 5.0 normal Not Available [address], [address], 02/08/2025 11:05:22 02/05/20 25 02/08/2025 CBC (INCL UDES DIFF/ PLT) platelet count 250 thous and/u L 140-40 0 normal Not Available [address], [address], 02/08/2025 11:05:22 02/05/20 25 02/08/2025 CBC (INCL UDES DIFF/ PLT) MPV 9.9 fL 7.5-12 .5 normal Not Available [address], [address], 02/08/2025 11:05:22 02/05/20 25 02/08/2025 CBC (INCL UDES DIFF/ PLT) absolute neutrophils 4372 cells /uL 1500-7 800 normal Not Available [address], [address], 02/08/2025 11:05:22 02/05/20 25 02/08/2025 CBC (INCL UDES DIFF/ PLT) absolute lymphocytes 1795 cells /uL 850-39 00 normal Not Available [address], [address], 02/08/2025 11:05:22 02/05/20 25 02/08/2025 CBC (INCL UDES DIFF/ PLT) absolute monocytes 503 cells /uL 200-95 0 normal Not Available [address], [address], 02/08/2025 11:05:22 02/05/20 25 02/08/2025 CBC (INCL UDES DIFF/ PLT) absolute eosinophils 82 cells /uL 15-500 normal Not Available [address], [address], 02/08/2025 11:05:22 02/05/20 25 02/08/2025 CBC (INCL UDES DIFF/ PLT) absolute basophils 48 cells /uL 0-200 normal Not Available [address], [address], 02/08/2025 11:05:22 02/05/20 25 02/08/2025 CBC (INCL UDES DIFF/ PLT) neutrophils 64.3 % normal Not Available [address], [address], 02/08/2025 11:05:22 02/05/20 25 02/08/2025 CBC (INCL UDES DIFF/ PLT) lymphocytes 26.4 % normal Not Available [facility] [address] [place], [address], 02/08/2025 11:05:22 02/05/20 25 02/08/2025 CBC (INCL UDES DIFF/ PLT) monocytes 7.4 % normal Not Available [facility] [address], [address], 02/08/2025 11:05:22 02/05/20 25 02/08/2025 CBC (INCL UDES DIFF/ PLT) eosinophils 1.2 % normal Not Available [facility] [address], [address], 02/08/2025 11:05:22 02/05/2002/08/2025 CBC (INCL UDES DIFF/ PLT) basophils 0.7 % normal Not Available [facility] [address], [address], 02/08/2025 11:05:22 02/05/20 25 02/08/2025 HEPAT ITIS B SURFA CE ANTIG EN W/REF L CONFI RM hepatitis B surface antigen NON-RE ACTIVE non-re active normal For addit ional infor hugh ngo e refer to http: //[facility] renuka girard.que stdia gnost ics.c om/fa q/FAQ (This link is being provi ded for infor hiwot humphrey/ educa nia l purpo ses only. ) Not Available [facility] [address], [address], 02/08/2025 11:05:23 02/05/2002/08/2025 HEPAT ITIS C AB W/REF L TO [...] a test for HCV RNA (test code 10542 ) is sugge sted. For addit ional infor hiwot reese e refer to http: //[facility] renuka danielle stdia gnost ics.c om/fa q/FAQ 22v1 (This link is being provi ded for infor hiwot nal/ educa nia l purpo ses only. ) Not Available [facility] [address] [address] [place], [address], 02/08/2025 11:05:24 02/05/20 25 02/08/2025 RUBEL LA AB (IGG) , IMMUN E [...] with rubel la virus . Not Available [facility] [id number] [place] [address], [address], 02/08/2025 11:05:24 02/05/20 25 02/08/2025 HIV 1/2 ANTIG EN/AN TIBOD Y,FOU RTH GENER ATION W/RFL HIV Ag/Ab, 4TH gen NON-RE ACTIVE non-re active normal HIV-1 antig en and HIV-1 /HIV- 2 antib odies were not detec ric. There is no labor atory evide nce of HIV infec tion. PLEAS E NOTE: This infor sarahkarlos girard has been discl osed to you from recor ds whose confi denti ality may be prote cted by state law. If your state requi res such prote ction , then the state law prohi bits you from jose juan elaine furth er discl osure of the infor sarahkarlos n witho ut the speci fic writt en conse nt of the perso n to whom it perta ins, or as other bradshaw permi tted by law. A gener al autho ann ion for the relea se of medic al or other infor matkarlos n is NOT suffi cient for this purpo se. For addit ional infor hiwot n pleas e refer to http: //[facility] renuka danielle stdia gnost ics.c om/fa q/FAQ 106 (This link is being provi ded for infor hiwot nal/ educa nia l purpo ses only. ) The perfo rmanc e of this assay has not been clini rafy valid ated in patie nts less than 2 years old. Not Available [employer] [address] [address] [place], [address], 02/08/2025 11:05:25 02/05/2002/08/2025 RPR (DX) W/REF L TITER AND T. PALLI DUM AB, IA RPR (DX) w/refl titer and confirmatory testing NON-RE ACTIVE non-re active normal No labor atory evide nce of syphi lis. If recen t expos ure is suspe cted, submi t a new sampl e in 2-4 weeks . Not Available [employer] [address] [address] [place], [address], 02/08/2025 11:05:27 02/05/2002/08/2025 ANTIB RUDDY SCREE N, RBC W/REF L [...] alloi mmuni zed pregn amber. Not Available [employer] [address] [address] [place], [address], 02/08/2025 11:05:28 02/05/2002/08/2025 ABO GROUP AND RH TYPE ABO group A Not Available [facility] [address] [address], [place], [address], 02/08/2025 11:05:28 02/05/2002/08/2025 ABO GROUP AND RH TYPE Rh type RH(D) POSITI VE For addit ional infor hugh ngo e refer to http: //[facility] renuka Lambertia gnost ics.c om/fa q/FAQ 111 (This link is being provi ded for infor hiwot humphrey/ educluis manuel isidro purpo ses only. ) Not Available [facility] [address] [address] [address], [place], [address], 02/08/2025 11:05:28 02/05/2002/08/2025 DRUG MONIT OR, PANEL 1, SCREE N, URINE amphetamines NEGATI VE NG/mL <500 See Note A See Note A Not Available [facility] [address] [address], [place], [address], 02/08/2025 11:05:29 02/05/20 25 02/08/2025 DRUG MONIT OR, PANEL 1, SCREE N, URINE barbiturates NEGATI VE NG/mL <300 See Note A See Note A Not Available [facility] [address] [address], [place], [address], 02/08/2025 11:05:29 02/05/2002/08/2025 DRUG MONIT OR, PANEL 1, SCREE N, URINE benzodiazepi regina NEGATI VE NG/mL <100 See Note A See Note A Not Available [facility] [address] [address] [place], [address], 02/08/2025 11:05:29 02/05/2002/08/2025 DRUG MONIT OR, PANEL 1, SCREE N, URINE cocaine metabolite NEGATI VE NG/mL <150 See Note A See Note A Not Available [facility] [address] [address] [place], [address], 02/08/2025 11:05:29 02/05/20 25 02/08/2025 DRUG MONIT OR, PANEL 1, SCREE N, URINE marijuana metabolite NEGATI VE NG/mL <20 See Note A See Note A Not Available [facility] [address] [address], [place], [address], 02/08/2025 11:05:29 02/05/20 25 02/08/2025 DRUG MONIT OR, PANEL 1, SCREE N, URINE methadone metabolite NEGATI VE NG/mL <100 See Note A See Note A Not Available [address] [address] [address], [place], [address], 02/08/2025 11:05:29 02/05/2002/08/2025 DRUG MONIT OR, PANEL 1, SCREE N, URINE opiates NEGATI VE NG/mL <100 See Note A See Note A Not Available [facility] [address] [address], [place], [address], 02/08/2025 11:05:29 02/05/20 25 02/08/2025 DRUG MONIT OR, PANEL 1, SCREE N, URINE oxycodone NEGATI VE NG/mL <100 See Note A See Note A Not Available [address] [address], [place], [address], 02/08/2025 11:05:29 02/05/20 25 02/08/2025 DRUG MONIT OR, PANEL 1, SCREE N, URINE phencyclidin e NEGATI VE NG/mL <25 See Note A See Note A Not Available [facility] [address] [address], [place], [address], 02/08/2025 11:05:29 02/05/20 25 02/08/2025 DRUG MONIT OR, PANEL 1, SCREE N, URINE creatinine 208.5 mg/dL > or = 20.0 Not Available [address] [address], [place], [address], 02/08/2025 11:05:29 02/05/20 25 02/08/2025 DRUG MONIT OR, PANEL 1, SCREE N, URINE pH 6.6 4.5-9. 0 Not Available [address] [address] [place], [address], 02/08/2025 11:05:29 02/05/20 25 02/08/2025 DRUG MONIT OR, PANEL 1, SCREE N, URINE oxidant NEGATI VE mcg/m L <200 Not Available [address] [address] [place], [address], 02/08/2025 11:05:29 02/05/20 25 02/08/2025 DRUG MONIT ORING TEMPL ATE notes and comments This drug testi ng is for medic al treat ment only. Arash sis was perfo rmed as non-f orens ic testi ng and these resul ts shoul d be used only by healt [facility] prov[facility] ders to rende r diagn osis or treat ment, or to monit or progr ess of medic al condi tions . Note A: The resul ts are presu mptiv e; based only on nava harper [place] ds, and they have not been confi rmed by a defin itive rita johnson. [facility]alt [facility] Provi ders needi ng Inter preta tion vianey tance , pleas e conta ct us at 1.877 .40.R XTOX (1.87 [phone] [phone] ) M-F, 8am to 10pm EST Not Available [address] [address] [address] , [place], [address], 02/08/2025 11:05:30 02/05/20 25 02/08/2025 CULTU RE, URINE , ROUTI NE culture, urine, routine SEE NOTE CULTU RE, URINE , ROUTI NE Micro Numbe r: [id number] Test Statu s: Final Speci men Sourc e: Urine Speci men Quali ty: Adequ ate Resul t: No Growt h Not Available [address] [address] [address], [place], [address], 02/08/2025 11:05:31 02/05/20 25 02/10/2025 THINP REP TIS PAP (REFL ) HPV MRNA E6/E7 clinical information: normal Pregn ant Not Available [address], [address], 02/10/2025 16:01:40 02/05/20 25 02/10/2025 THINP REP TIS PAP (REFL ) HPV MRNA E6/E7 LMP: normal NA Not Available [address], [address], 02/10/2025 16:01:40 02/05/20 25 02/10/2025 THINP REP TIS PAP (REFL ) HPV MRNA E6/E7 prev. Pap: normal NA Not Available [address], [address], 02/10/2025 16:01:40 02/05/20 25 02/10/2025 THINP REP TIS PAP (REFL ) HPV MRNA E6/E7 prev. BX: normal NA Not Available [address], [address], 02/10/2025 16:01:40 02/05/20 25 02/10/2025 THINP REP TIS PAP (REFL ) HPV MRNA E6/E7 source: normal Cervi x, Endoc ervix Not Available [address], [address], 02/10/2025 16:01:40 02/05/20 25 02/10/2025 THINP REP TIS PAP (REFL ) HPV MRNA E6/E7 statement of adequacy: normal Satis facto ry for evalu ation . Endoc ervic al/tr ansfo rmati on zone compo nent absen t. Age and/o r menst rual statu s not provi ded Not Available [address], [address], 02/10/2025 16:01:40 02/05/20 25 02/10/2025 THINP REP TIS PAP (REFL ) HPV MRNA E6/E7 interpretati on/result: normal Cytol ogy Resul ts: Negat seven for intra epith elial lesio n or burke farah . Not Available [address] [address] [place], [address], 02/10/2025 16:01:40 02/05/20 25 02/10/2025 THINP REP TIS PAP (REFL ) HPV MRNA E6/E7 comment: normal This Pap test has been evalu ated with compu syed techn ology . Not Available [address] [address] [place], [address], 02/10/2025 16:01:40 02/05/2002/10/2025 THINP REP TIS PAP (REFL ) HPV MRNA E6/E7 cytotechnolo gist: normal JAF, CT( CP) CT Scree harper Locat ion: [address] [address] [place] [address] Not Available [address] [address] [place], [address], 02/10/2025 16:01:40 02/05/20 25 02/10/2025 THINP REP [...] clini sara infor matio n. Not Available [address] [address] [place], [address], 02/10/2025 16:01:40 02/05/2002/04/2025 CT + NG + TV, DNA, urine /swab Chlamydia negati ve Not Available [facility] ([facility]) [address] [place], [address], 02/03/2025 17:49:54 02/05/20 25 02/04/2025 CT + NG + TV, DNA, urine /swab Gonorrhea negati ve Not Available [facility] ([facility]) [address] [place], [address], 02/03/2025 17:49:54 02/05/20 25 02/04/2025 CT + NG + TV, DNA, urine /swab Trichomonas negati ve Not Available [facility] ([facility]) [address] [place], [address], 02/03/2025 17:49:54 05/27/2005/27/2025 CBC WBC 7.5 x10 4.0-10 .5 Not Available [facility] [address] [facility], [place], [address], 05/27/2025 13:18:09 05/27/2005/27/2025 CBC RBC 3.63 x10 3.50-5 .50 Not Available [facility] [address] [facility], [place], [address], 05/27/2025 13:18:09 05/27/2005/27/2025 CBC HGB 11.3 g/dL 12.0-1 6.0 low Not Available [facility] [address] [facility], [place], [address], 05/27/2025 13:18:09 05/27/2005/27/2025 CBC HCT 34.6 % 37.0-4 7.0 low Not Available [facility] [address] [facility], [place], [address], 05/27/2025 13:18:09 05/27/20 25 05/27/2025 CBC MCV 95.4 fL 80.0-9 9.9 Not Available [facility] [address] [facility], [place], [address], 05/27/2025 13:18:09 05/27/20 25 05/27/2025 CBC MCH 31.1 pg 27.0-3 2.0 Not Available [facility] [address] [facility], [place], [address], 05/27/2025 13:18:05/27/2005/27/2025 CBC MCHC 32.7 g/dL 32.0-3 6.0 Not Available [facility] [address] [facility], [place], [address], 05/27/2025 13:18:05/27/2005/27/2025 CBC RDW 12.7 % 11.5-1 4.5 Not Available [facility] [address] [facility], [place], [address], 05/27/2025 13:18:05/27/2005/27/2025 CBC plt 232.5 x10 140.0- 451.0 Not Available [facility] [address] [facility], [place], [address], 05/27/2025 13:18:05/27/2005/27/2025 CBC lymphocytes % 19.6 % 20.0-5 0.0 low Not Available [facility] [address] [facility], [place], [address], 05/27/2025 13:18:09 05/27/2005/27/2025 CBC granulcytes % 73.2 % 30.0-7 0.0 high Not Available [facility] [address] [facility], [place], [address], 05/27/2025 13:18:09 05/27/20 25 05/27/2025 CBC monocytes % 6.3 % 2.0-16 .0 Not Available [facility] [address] [facility], [place], [address], 05/27/2025 13:18:09 05/27/20 25 05/27/2025 CBC granulcytes# 5.5 x10 Not Jennifer ilable [facility] [address] [address], [place], [address], 05/27/2025 13:18:09 05/27/20 25 05/27/2025 CBC lymphocytes # 1.5 x10 Not Available [address] [address], [place], [address], 05/27/2025 13:18:09 05/27/20 25 05/27/2025 CBC monocytes # 0.5 x10 Not Avai lable [address] [address], [place], [address], 05/27/2025 13:18:09 05/27/20 25 05/27/2025 GLUCO SE SCREE N glucose screen 108.0 mg/dL Not Available [address], [address], 05/27/2025 14:42:22 01/27/20 25 01/13/2025 US, obste tric, 1st trime ster No observ ation record ed. [email or web address] [facility] ([facility]) [address] [place], [address], 01/27/2025 09:10:51 04/05/20 25 04/04/2025 US, obste tric, 2nd trime ster No observ ation record ed. [id number] [place], [address], 04/06/2025 13:07:14 Result Notes None recorded. Problems Name Problem SNOMED Code Status Onset Date Resolution Date Notes Provider Name and Address Organization Details Recorded Time History of musculoske letal disease 404872370 Active 2024 scoliosis, chiari malformati on [facility] Ellis [facility], LJennifferLJennifferCJenniffer 10:52:08 Normal 57932694 Active 2024 EDDIE CASSIDY [facility], L.LJennifferCJenniffer 18:14:25 Heartburn 09757442 Active 2024 Que Gaitan MD [address] [place] [address], [id number], [facility], SusieLRj 16:07:03 Problem Notes None recorded. Procedures Surgical History Date Name Laterality Status Provider Name and Address Organization Details Recorded Time 02/05/20 Date of Last Pap Smear completed FLY HARLEEN [facility], LJennifferLRj 06/24/2025 11:15:48 procedure on back completed EDDIE GARCIAY [facility], LJennifferLJennifferCJenniffer 12/27/2024 09:29:58 Imaging Results None recorded. Procedure [...] and Address Organization Details Last Updated DateTime 5 170.18 cm 24.3 kg/m2 32839.5 2 g 18 /min 94 /min 98 % 98.4 [degF] 132/82 mm[Hg] EDDIE CASSIDY [facility] 11:16:15 Social History Question Answer Notes LastModified by [employer] Details LastModified Time Tobacco Smoking Status Never Smoker EDDIE CASSIDY [facility] 12/27/2024 09:32:58 Are You Blind Or Do You Have Difficulty Seeing? No Information not available 12/27/2024 Are You Deaf Or Do You Have Serious Difficulty Hearing? No Information not available 12/27/2024 What Was The Date Of Your Most Recent Tobacco Screening? 02/04/2025 [email or web address] Information not available 02/04/2025 What Is Your Relationship Status? [facility] Information not available 12/27/2024 Are You Sexually Active? Yes [facility] Information not available 12/27/2024 Do You Have Difficulty Walking Or Climbing Stairs? No Information not available 12/27/2024 Sex: Unknown Functional Status Question Answer Note LastModified by [employer] Details LastModified Time Do you use any [...] 0.5 mL, PF 5 completed Not Available [facility] 06/24/2025 12:09:16 Tdap 5 completed Not Available [facility] 06/24/2025 12:09:16 COVID-19, mRNA, LNP-S, PF, 30 mcg/0.3 mL dose 1 completed Not Available [facility] 08/12/2025 10:30:59 COVID-19, mRNA, LNP-S, PF, 30 mcg/0.3 mL dose 1 completed Not Available [facility] 08/12/2025 10:30:59 Influenza, split virus, quadrivalent, PF 3 completed Not Available [facility] 08/12/2025 10:30:59 Influenza, MDCK, trivalent, preservative 4 completed Not Available [facility] 08/12/2025 10:30:59 Past Encounters Encounter ID Performer Location Encounter Start Date Encounter Closed Date Diagnosis/Indication Diagnosis SNOMED-CT Code Diagnosis ICD10 Code Diagnosis IMO Codes Diagnosis Note [id number] Que Gaitan MD [facility] ([facility]) [address] [place] [address] 5 05/12/2025 15:56:55 05/17/2025 16:53:36 Normal 77748044 Z34.02 3959382 Gestation period, 25 weeks 28167609 Z3A.25 5807139 Heartburn 24966617 R12 58923 [id number] Que Gaitan MD [facility] ([facility]) [address] [place], [place] [id number] 05/27/2025 10:12:40 05/30/2025 10:30:26 Gestation period, 28 weeks [id number] Z3A.28 [id number] Que Gaitan MD [facility] ([facility]) [address] [place], [place] [id number] 05/27/2025 10:17:05 05/27/2025 11:37:07 Normal [id number] Z34.03 [id number] Gestation period, 28 weeks [id number] Z3A.28 [id number] Health Concerns Section Related Observation LastModified by Organization Detai ls LastModified Time None Recorded Concern Status LastModified by Organization Details LastModified Time None Recorded Payers Encounter Date Sequence Insurance Name Policy Number Policy [place] Covered Member ID Sal[place] Member ID Guarantor Name 05/27/2025 1 [employer] ([employer]) [id number] Jimena Richards [id number] Jimena Richards Notes Date Note Type Note Provider Name and Address Organization Details Recorded Time 05/27/2025 text/html jr ob routineRep orted by PatientHPIFor associated symptoms, patient reportsedema (feet with prolonged standing)but reportsno abdominal pain,no cramping,no contractions,normal movement,no bleeding,no vaginal discharge,no vaginal/vulvar itching or irritation,no dysuria,no frequency,no urgency,no hematuria,no fever,no nausea,no emesis,no constipation,no diarrhea/loose stool,no visual changes,no headache,no dizziness, andno breathlessness.heartb urn- improved,low back pain, left hip painDenies any tobacco, nicotine, alcohol, or drug useROS as noted in the HPI Que Gaitan MD [address] [place] [address], [id number], [facility], [facility] 05/27/2025 11:33:19 OBGyn Episode Ob Episode Information Episode Created Date Number of Fetuses Patient Bloodtype Patient rh Status Prepregnancy Weight lbs Domestic Partner Domestic Partner Phone Father Name Waste Duster Status 12/28/19 1 A Positive Davy OPEN Fetus Data First Name Last Name Admitted to NICU Weight (g) Sex Living Outcome Pediatric Complications Fetus ID Race Codes Race Delivery Type [id number] Problems Problem Notes Epi consult 08/02/25 Problem Name Start Date End Date Resolution Snomed Code Not e Normal 04/03/2025 [id number] Candida Calculation Initial Candida Date Initial Exam [...] Days Gestation 0 01/25/2025 08/19/20 25 0 Pre-garrison Flowsheet Flowsheet Date 12/27/2024 Kemp Score Blood Edema Fundus Height Fundus Units Glucose Ketones Leukocytes Nitrite Labor Signs Protein Cervic Dilation Cervic Effacement Cervic Station Type Weight in lbs Pre/Post Dialysis Refused Weight 144.210154304929 BP Diastolic BP Location Tested BP Systolic [...] Weight in lbs Pre/Post Dialysis Refused Weight 144.67459330111 BP Diastolic BP Location Tested BP Systolic [...] Weight in lbs Pre/Post Dialysis Refused Weight 144.911192689578 BP Diastolic BP Location Tested BP Systolic [...] Weight in lbs Pre/Post Dialysis Refused Weight 150.811175547135 BP Diastolic BP Location Tested BP Systolic [...] Weight in lbs Pre/Post Dialysis Refused Weight 152.236303664688 BP Diastolic BP Location Tested BP Systolic [...] Weight in lbs Pre/Post Dialysis Refused Weight 155.17037266481 BP Diastolic BP Location Tested BP Systolic [...] Weight in lbs Pre/Post Dialysis Refused Weight 156.661133887935 BP Diastolic BP Location Tested BP Systolic [...] Weight in lbs Pre/Post Dialysis Refused Weight 154.895108641474 BP Diastolic BP Location Tested BP Systolic [...] Weight in lbs Pre/Post Dialysis Refused Weight 155.60818379245 BP Diastolic BP Location Tested BP Systolic BP Type 84 132 sitting Fetus Heart Rate Present A 148 Fetus Movement A Yes Comments vaginal discharge/pressure, back pain, sob, pelvic pain, sob, dizziness, Flowsheet Date 07/21/2025 Kemp Score Blood Edema Fundus Height Fundus Units Glucose Ketones Leukocytes Nitrite Labor Signs Protein Cervic Dilation Cervic Effacement Cervic Station none trace Negative Oliver Carr trace Type Weight in lbs Pre/Post Dialysis Refused Weight 169.801207183986 BP Diastolic BP Location Tested BP Systolic [...] Cervic Station 35 cm none trace Negative Iggy Carr neg 0cm -2 Type Weight in lbs Pre/Post Dialysis Refused Weight 165.356736847661 BP Diastolic BP Location Tested BP Systolic BP Type 76 140 sitting Fetus Heart Rate Present A 144 Present Fetus Movement A Yes Comments abdominal pain/cramping, swathi k,pelvic,hip pain, vaginal pressure,N/V, dizziness,edema in feet Flowsheet Date 08/02/2025 Kemp Score Blood Edema Fundus Height Fundus Units Glucose Ketones Leukocytes Nitrite Labor Signs Protein Cervic Dilation Cervic Effacement Cervic Station none none Oliver Carr 1+ Type Weight in lbs Pre/Post Dialysis Refused Weight 163.641439543858 BP Diastolic BP Location Tested BP Systolic BP Type 88 136 Fetus Heart Rate Present A 148 Present Fetus Movement A Yes Comments vaginal and pelvic pressure, swelling in feet, hip pain Flowsheet Date 08/12/2025 Kemp Score Blood Edema Fundus Height Fundus Units Glucose Ketones Leukocytes Nitrite Labor Signs Protein Cervic Dilation Cervic Effacement Cervic Station 38 cm none Iggy Carr neg 1cm 80% -3 Type Weight in lbs Pre/Post Dialysis Refused Weight 164.700591098408 BP Diastolic BP Location Tested BP Systolic [...] Estim ated Date of Delivery false Thalassemia (Kyrgyz, Romansh, Mediterranean, Or Background): MCV < 80 false Neural Tube Defect (Meningomyelocele, Spina Bifi da, Or Anencephaly) false Congenital Heart Defect false Down Syndrome false Jacob-Sachs (eg, Mosque, Cajun, Yi-Bledsoe) f alse Mira Disease false Sickle Cell Disease Or Trait () false Hemophilia Or Other Blood Disorders false Muscular Dystrophy false Cystic Fibrosis false Barron's Chorea false Intellectual Disability/Autism false If Yes, [...]
--- OUTSIDE RECORDS SUMMARY | 2025-08-15 17:13 | XMS_ITS | Continuity of Care Document ---
Author Organization AZAM - [facility], [place], [facility] ([facility]) Address [address] [place] [address] Assessment No assessment recorded. Plan of Treatment Reminders Order Date Submit Date Provider Last Modified By Organization Details Last Modified Time Details Appointments POST-P ARTUM VISIT 2025 09:50A M Que Gaitan MD Not available Not available Not available Lab strept ococcu s group B, cultur e, vagina l or rectal 2024 025 finessetnpapi [employer] [facility], [address] [place] [address], [facility] [address] [place], [address], 07/28/2025 16:58:37 Referral None record ed. Procedures None record ed. Surgeries None record ed. Imaging None record ed. Medication Orders None record ed. Patient TargetsNo targets recorded. Patient InstructionsNo instructions recorded. Reason for Referral None Reported. Results Created Date Observation Date Name Description Value Unit Range Abnormal Flag Note LastModifiedBy Organization Detail LastModifiedTime 02/05/2002/08/2025 URINA LYSIS , COMPL ETE color YELLOW yellow normal Not Available [employer] [facility] [address] [place], [address], 02/08/2025 11:05:21 02/05/20 25 02/08/2025 URINA LYSIS , COMPL ETE appearance CLOUDY clear abnormal Not Available [employer] [facility] [address] [place], [address], 02/08/2025 11:05:21 05/23/20 25 02/08/2025 URINA LYSIS , COMPL ETE specific gravity 1.024 1.001- 1.035 normal Not Available [address], [address], 02/08/2025 11:05:21 02/05/20 25 02/08/2025 URINA LYSIS , COMPL ETE pH 6.5 5.0-8. 0 normal Not Available [address], [address], 02/08/2025 11:05:21 02/05/20 25 02/08/2025 URINA LYSIS , COMPL ETE glucose NEGATI VE negati ve normal Not Available [address], [address], 02/08/2025 11:05:21 02/05/20 25 02/08/2025 URINA LYSIS , COMPL ETE bilirubin NEGATI VE negati ve normal Not Available [address], [address], 02/08/2025 11:05:21 02/05/20 25 02/08/2025 URINA LYSIS , COMPL ETE ketones NEGATI VE negati ve normal Not Available [facility] [address], [address], 02/08/2025 11:05:21 02/05/20 25 02/08/2025 URINA LYSIS , COMPL ETE occult blood NEGATI VE negati ve normal Not Available [facility] [address], [address], 02/08/2025 11:05:21 02/05/20 25 02/08/2025 URINA LYSIS , COMPL ETE protein NEGATI VE negati ve normal Not Available [facility] [address], [address], 02/08/2025 11:05:21 02/05/20 25 02/08/2025 URINA LYSIS , COMPL ETE nitrite NEGATI VE negati ve normal Not Available [address], [address], 02/08/2025 11:05:21 02/05/20 25 02/08/2025 URINA LYSIS , COMPL ETE leukocyte esterase NEGATI VE negati ve normal Not Available [address], [address], 02/08/2025 11:05:21 02/05/20 25 02/08/2025 URINA LYSIS , COMPL ETE WBC 6-10 /hpf < or = 5 abnormal Not Available [address], [address], 02/08/2025 11:05:21 02/05/20 25 02/08/2025 URINA LYSIS , COMPL ETE RBC 0-2 /hpf < or = 2 normal Not Available [address], [address], 02/08/2025 11:05:21 02/05/20 25 02/08/2025 URINA LYSIS , COMPL ETE squamous epithelial cells 10-20 /hpf < or = 5 abnormal Not Available [address], [address], 02/08/2025 11:05:21 02/05/20 25 02/08/2025 URINA LYSIS , COMPL ETE bacteria MANY /hpf none seen abnormal Not Available [address], [address], 02/08/2025 11:05:21 02/05/20 25 02/08/2025 URINA LYSIS , COMPL ETE hyaline cast NONE SEEN /lpf none seen normal Not Available [address], [address], 02/08/2025 11:05:21 0502/08/2025 URINA LYSIS , COMPL ETE note This urine was arash zed for the prese nce of WBC, RBC, bacte octavia, casts , and other forme d eleme nts. Only those eleme nts seen were repor ric. Not Available [address], [address], 02/08/2025 11:05:21 02/05/20 25 02/08/2025 CBC (INCL UDES DIFF/ PLT) white blood cell count 6.8 thous and/u L 3.8-10 .8 normal Not Available [facility] [address], [address], 02/08/2025 11:05:22 02/05/20 25 02/08/2025 CBC (INCL UDES DIFF/ PLT) red blood cell count 4.14 moriah on/uL 3.80-5 .10 normal Not Available [address], [address], 02/08/2025 11:05:22 02/05/20 25 02/08/2025 CBC (INCL UDES DIFF/ PLT) hemoglobin 12.8 g/dL 11.7-1 5.5 normal Not Available [address], [address], 02/08/2025 11:05:22 02/05/20 25 02/08/2025 CBC (INCL UDES DIFF/ PLT) hematocrit 39.4 % 35.0-4 5.0 normal Not Available [facility] [address], [address], 02/08/2025 11:05:22 02/05/20 25 02/08/2025 CBC (INCL UDES DIFF/ PLT) MCV 95.2 fL 80.0-1 00.0 normal Not Available [address], [address], 02/08/2025 11:05:22 02/05/20 25 02/08/2025 CBC (INCL UDES DIFF/ PLT) MCH 30.9 pg 27.0-3 3.0 normal Not Available [address], [address], 02/08/2025 11:05:22 02/05/20 25 02/08/2025 CBC (INCL UDES DIFF/ PLT) MCHC 32.5 g/dL 32.0-3 6.0 normal For adult s, a sligh t decre ase in the calcu lated MCHC value (in the range of 30 to 32 g/dL) is most likel y not clini rafy signi alba t; carina er, it shoul d be inter prete d with cauti on in [facility] somerset n with other red cell león eters and the patie nt's clini sara condi tion. Not Available [address], [address], 02/08/2025 11:05:22 02/05/20 25 02/08/2025 CBC (INCL UDES DIFF/ PLT) RDW 12.4 % 11.0-1 5.0 normal Not Available [address], [address], 02/08/2025 11:05:22 02/05/20 25 02/08/2025 CBC (INCL UDES DIFF/ PLT) platelet count 250 thous and/u L 140-40 0 normal Not Available [address], [address], 02/08/2025 11:05:22 02/05/20 25 02/08/2025 CBC (INCL UDES DIFF/ PLT) MPV 9.9 fL 7.5-12 .5 normal Not Available [address], [address], 02/08/2025 11:05:22 02/05/20 25 02/08/2025 CBC (INCL UDES DIFF/ PLT) absolute neutrophils 4372 cells /uL 1500-7 800 normal Not Available [address], [address], 02/08/2025 11:05:22 02/05/20 25 02/08/2025 CBC (INCL UDES DIFF/ PLT) absolute lymphocytes 1795 cells /uL 850-39 00 normal Not Available [address], [address], 02/08/2025 11:05:22 02/05/20 25 02/08/2025 CBC (INCL UDES DIFF/ PLT) absolute monocytes 503 cells /uL 200-95 0 normal Not Available [address], [address], 02/08/2025 11:05:22 02/05/20 25 02/08/2025 CBC (INCL UDES DIFF/ PLT) absolute eosinophils 82 cells /uL 15-500 normal Not Available [address], [address], 02/08/2025 11:05:22 02/05/20 25 02/08/2025 CBC (INCL UDES DIFF/ PLT) absolute basophils 48 cells /uL 0-200 normal Not Available [address], [address], 02/08/2025 11:05:22 02/05/20 25 02/08/2025 CBC (INCL UDES DIFF/ PLT) neutrophils 64.3 % normal Not Available [address], [address], 02/08/2025 11:05:22 02/05/20 25 02/08/2025 CBC (INCL UDES DIFF/ PLT) lymphocytes 26.4 % normal Not Available [address], [address], 02/08/2025 11:05:22 02/05/20 25 02/08/2025 CBC (INCL UDES DIFF/ PLT) monocytes 7.4 % normal Not Available [facility] [address], [address], 02/08/2025 11:05:22 02/05/20 25 02/08/2025 CBC (INCL UDES DIFF/ PLT) eosinophils 1.2 % normal Not Available [facility] [address], [address], 02/08/2025 11:05:22 02/05/20 25 02/08/2025 CBC (INCL UDES DIFF/ PLT) basophils 0.7 % normal Not Available [facility] [address], [address], 02/08/2025 11:05:22 02/05/2002/08/2025 HEPAT ITIS B SURFA CE ANTIG EN W/REF L CONFI RM hepatitis B surface antigen NON-RE ACTIVE non-re active normal For addit ional infor hiwot girard, hugh e refer to http: //[facility] catkarlos n.que stdia gnost ics.c om/fa q/FAQ 202 (This link is being provi ded for infor hiwot humphrey/ educa nia l purpo ses only. ) Not Available [facility] [address], [address], 02/08/2025 11:05:23 02/05/2002/08/2025 HEPAT ITIS C AB [...] a test for HCV RNA (test code 59135 ) is sugge sted. For addit ional infor matio n pleas e refer to http: //[facility] cat n.que stdia gnost ics.c om/fa q/FAQ 22v1 (This link is being provi ded for infor matio nal/ educa nia l purpo ses only. ) Not Available [facility] [address] [address] [place], [address], 02/08/2025 11:05:24 02/05/20 25 02/08/2025 RUBEL LA [...] with rubel la virus . Not Available [facility] [address] [address] [address], [place], [address], 02/08/2025 11:05:24 02/05/20 25 02/08/2025 HIV 1/2 [...] law prohi bits you from jose juan thomson any furth er discl osure of the [...] matio n pleas e refer to http: //edu renuka danielle stdia gnost ics.c om/fa q/FAQ 106 (This link is being provi ded for infor hiwot nal/ educa nia l purpo ses only. ) The perfo rmanc e of this assay has not been clini rafy valid ated in patie nts less than 2 years old. Not Available [employer] [address] [place], [address], 02/08/2025 11:05:25 02/05/2002/08/2025 RPR (DX) W/REF L TITER AND T. PALLI DUM AB, IA RPR (DX) w/refl titer and confirmatory testing NON-RE ACTIVE non-re active normal No labor atory evide nce of syphi lis. If recen t expos ure is suspe cted, submi t a new sampl e in 2-4 weeks . Not Available [employer] [address] [place], [address], 02/08/2025 11:05:27 02/05/2002/08/2025 ANTIB RUDDY SCREE N, [...] alloi mmuni zed pregn amber. Not Available [employer] [place] [address] [address] [place], [address], 02/08/2025 11:05:28 02/05/2002/08/2025 ABO GROUP AND RH TYPE ABO group A Not Available [employer] [place] [address] [place], [address], 02/08/2025 11:05:28 02/05/2002/08/2025 ABO GROUP AND RH TYPE Rh type RH(D) POSITI VE For addit ional infor hugh ngo e refer to http: //[facility] renuka Lambertia gnost ics.c om/fa q/FAQ 111 (This link is being provi ded for infor hiwot humphrey/ educluis manuel isidro purpo ses only. ) Not Available [facility] [address] [address] [address], [place], [address], 02/08/2025 11:05:28 02/05/20 25 02/08/2025 DRUG MONIT OR, PANEL 1, SCREE N, URINE amphetamines NEGATI VE NG/mL <500 See Note A See Note A Not Available [facility] [address] [address] [address], [place], [address], 02/08/2025 11:05:29 02/05/20 25 02/08/2025 DRUG MONIT OR, PANEL 1, SCREE N, URINE barbiturates NEGATI VE NG/mL <300 See Note A See Note A Not Available [facility] [address] [address] [address], [place], [address], 02/08/2025 11:05:29 02/05/20 25 02/08/2025 DRUG MONIT OR, PANEL 1, SCREE N, URINE benzodiazepi regina NEGATI VE NG/mL <100 See Note A See Note A Not Available [employer] [address] [address] [place], [address], 02/08/2025 11:05:29 02/05/20 25 02/08/2025 DRUG MONIT OR, PANEL 1, SCREE N, URINE cocaine metabolite NEGATI VE NG/mL <150 See Note A See Note A Not Available [facility] [address] [address] [place], [address], 02/08/2025 11:05:29 02/05/20 25 02/08/2025 DRUG MONIT OR, PANEL 1, SCREE N, URINE marijuana metabolite NEGATI VE NG/mL <20 See Note A See Note A Not Available [facility] [address] [address] [place], [address], 02/08/2025 11:05:29 02/05/20 25 02/08/2025 DRUG MONIT OR, PANEL 1, SCREE N, URINE methadone metabolite NEGATI VE NG/mL <100 See Note A See Note A Not Available [address] [address] [address], [place], [address], 02/08/2025 11:05:29 02/05/20 25 02/08/2025 DRUG MONIT OR, PANEL 1, SCREE N, URINE opiates NEGATI VE NG/mL <100 See Note A See Note A Not Available [address] [address] [address], [place], [address], 02/08/2025 11:05:29 02/05/20 25 02/08/2025 DRUG MONIT OR, PANEL 1, SCREE N, URINE oxycodone NEGATI VE NG/mL <100 See Note A See Note A Not Available [address] [address] [address], [place], [address], 02/08/2025 11:05:29 02/05/2002/08/2025 DRUG MONIT OR, PANEL 1, SCREE N, URINE phencyclidin e NEGATI VE NG/mL <25 See Note A See Note A Not Available [address] [address] [address], [place], [address], 02/08/2025 11:05:29 02/05/20 25 02/08/2025 DRUG MONIT OR, PANEL 1, SCREE N, URINE creatinine 208.5 mg/dL > or = 20.0 Not Available [employer] [place] [address] [address] [address], [place], [address], 02/08/2025 11:05:29 02/05/2002/08/2025 DRUG MONIT OR, PANEL 1, SCREE N, URINE pH 6.6 4.5-9. 0 Not Available [address] [address] [address], [place], [address], 02/08/2025 11:05:29 02/05/20 25 02/08/2025 DRUG MONIT OR, PANEL 1, SCREE N, URINE oxidant NEGATI VE mcg/m L <200 Not Available [address] [address] [place], [address], 02/08/2025 11:05:29 02/05/20 25 02/08/2025 DRUG MONIT [...] are presu mptiv e; based only on scree harper metho ds, and they have not been confi rmed by a defin itive metho d. Healt hcare Provi ders needi ng Inter preta tion vianey tance , pleas e conta ct us at 1.877 .40.R XTOX (1.87 [phone] .9869 ) M-F, 8am to 10pm EST Not Available [address] [address] [place], [address], 02/08/2025 11:05:30 02/05/20 25 02/08/2025 CULTU RE, URINE , ROUTI NE culture, urine, routine SEE NOTE CULTU RE, URINE , ROUTI NE Micro Numbe r: [id number] Test Statu s: Final Speci men Sourc e: Urine Speci men Quali ty: Adequ ate Resul t: No Growt h Not Available [facility] [address] [address] [place], [address], 02/08/2025 11:05:31 02/05/20 25 02/10/2025 THINP REP TIS PAP (REFL ) HPV MRNA E6/E7 clinical information: normal Pregn ant Not Available [address] [address] [place], [address], 02/10/2025 16:01:40 02/05/20 25 02/10/2025 THINP REP TIS PAP (REFL ) HPV MRNA E6/E7 LMP: normal NA Not Available [address], [address], 02/10/2025 16:01:40 02/05/20 25 02/10/2025 THINP REP TIS PAP (REFL ) HPV MRNA E6/E7 prev. Pap: normal NA Not Available [address], [address], 02/10/2025 16:01:40 02/05/2002/10/2025 THINP REP TIS PAP (REFL ) HPV MRNA E6/E7 prev. BX: normal NA Not Available [address], [address], 02/10/2025 16:01:40 02/05/20 25 02/10/2025 THINP REP TIS PAP (REFL ) HPV MRNA E6/E7 source: normal Cervi x, Endoc ervix Not Available [address], [address], 02/10/2025 16:01:40 02/05/20 25 02/10/2025 THINP REP TIS PAP (REFL ) HPV MRNA E6/E7 statement of adequacy: normal Satis facto ry for evalu ation . Endoc ervic al/tr ansfo rmati on zone compo nent absen t. Age and/o r menst rual statu s not provi ded Not Available [address], [address], 02/10/2025 16:01:40 02/05/20 25 02/10/2025 THINP REP TIS PAP (REFL ) HPV MRNA E6/E7 interpretati on/result: normal Cytol ogy Resul ts: Negat seven for intra epith elial lesio n or malig sofi . Not Available [address] [place], [address], 02/10/2025 16:01:40 02/05/20 25 02/10/2025 THINP REP TIS PAP (REFL ) HPV MRNA E6/E7 comment: normal This Pap test has been evalu ated with nida syed techn ology . Not Available [address] [address] [place], [address], 02/10/2025 16:01:40 02/05/20 25 02/10/2025 THINP REP TIS PAP (REFL ) HPV MRNA E6/E7 cytotechnolo gist: normal JAF, CT( CP) CT Scree harper Locat ion: [place] [address] [place] [address] Not Available [address] [address] [place], [address], 02/10/2025 16:01:40 02/05/20 25 02/10/2025 THINP REP [...] clini sara infor matio n. Not Available [facility] [address] [address] [place], [address], 02/10/2025 16:01:40 02/05/2002/04/2025 CT + NG + TV, DNA, urine /swab Chlamydia negati ve Not Available [facility] ([facility]) [address] [place] [address], [address], 02/03/2025 17:49:54 02/05/20 25 02/04/2025 CT + NG + TV, DNA, urine /swab Gonorrhea negati ve Not Available [facility] ([facility]) [address] [place], [address], 02/03/2025 17:49:54 02/05/20 25 02/04/2025 CT + NG + TV, DNA, urine /swab Trichomonas negati ve Not Available [facility] ([facility]) [address] [place], [address], 02/03/2025 17:49:54 05/27/20 25 05/27/2025 CBC WBC 7.5 x10 4.0-10 .5 Not Available [facility] [address] [facility] 1, [place], [address], 05/27/2025 13:18:09 05/27/2005/27/2025 CBC RBC 3.63 x10 3.50-5 .50 Not Available [facility] [address] [facility], [place], [address], 05/27/2025 13:18:09 05/27/2005/27/2025 CBC HGB 11.3 g/dL 12.0-1 6.0 low Not Available [facility] [address] [facility] 1, [place], [address], 05/27/2025 13:18:09 05/27/2005/27/2025 CBC HCT 34.6 % 37.0-4 7.0 low Not Available [facility] [address] [facility], [place], [address], 05/27/2025 13:18:09 05/27/2005/27/2025 CBC MCV 95.4 fL 80.0-9 9.9 Not Available [facility] [address] [facility] Juliana [facility] [address], [place], [address], 05/27/2025 13:18:09 05/27/20 25 05/27/2025 CBC MCH 31.1 pg 27.0-3 2.0 Not Available [facility] [address] [facility] [address], [place], [address], 05/27/2025 13:18:05/27/2005/27/2025 CBC MCHC 32.7 g/dL 32.0-3 6.0 Not Available [facility] [address] [facility] 1, [place], [address], 05/27/2025 13:18:05/27/2005/27/2025 CBC RDW 12.7 % 11.5-1 4.5 Not Available [facility] [address] [facility] [address], [place], [address], 05/27/2025 13:18:09 05/27/2005/27/2025 CBC plt 232.5 x10 140.0- 451.0 Not Available [facility] [address] [facility] [address], [place], [address], 05/27/2025 13:18:09 05/27/2005/27/2025 CBC lymphocytes % 19.6 % 20.0-5 0.0 low Not Available [facility] [address] [facility] [address], [place], [address], 05/27/2025 13:18:05/27/2005/27/2025 CBC granulcytes % 73.2 % 30.0-7 0.0 high Not Available [facility] [address] [facility] [address], [place], [address], 05/27/2025 13:18:09 05/27/20 25 05/27/2025 CBC monocytes % 6.3 % 2.0-16 .0 Not Available [facility] [address] [facility] [address], [place], [address], 05/27/2025 13:18:09 05/27/20 25 05/27/2025 CBC granulcytes# 5.5 x10 Not Jennifer ilable [facility] [address] [facility] [address], [place], [address], 05/27/2025 13:18:05/27/20 25 05/27/2025 CBC lymphocytes # 1.5 x10 Not Available [facility] [address] [facility] [address], [place], [address], 05/27/2025 13:18:05/27/20 25 05/27/2025 CBC monocytes # 0.5 x10 Not Avai lable [facility] [address] [facility] [address], [place], [address], 05/27/2025 13:18:05/27/20 25 05/27/2025 GLUCO SE SCREE N glucose screen 108.0 mg/dL Not Available [facility] [address] [facility] [address], [place], [address], 05/27/2025 14:42:22 07/21/20 25 07/24/2025 STREP TOCOC CUS, GROUP B CULTU RE streptococcu s, group B culture SEE NOTE STREP TOCOC CUS, GROUP B CULTU RE Micro Numbe r: [id number] Test Statu s: Final Speci men Sourc e: Vagin al/an orect al Speci men Quali ty: Adequ ate Resul t: No group B Strep tococ cus isola ric Note per CDC guide lines optim al recov rosa is achie stanislav by swabb ing both the lower vagin a and rectu m (thro ugh the anal sphin cter) . Not Available [employer] [facility] [address] [address], [place], [address], 07/24/2025 11:53:50 01/27/20 25 01/13/2025 US, obste tric, 1st trime ster No observ ation record ed. [email or web address] [facility] [address] [place], [address], 01/27/2025 09:10:51 04/05/20 25 04/04/2025 US, obste tric, 2nd trime ster No observ ation record ed. [email or web address] [address] [place], [address], 04/06/2025 13:07:14 Result Notes None recorded. Problems Name Problem SNOMED Code Status Onset Date Resolution Date Notes Provider Name and Address Organization Details Recorded Time History of musculoske letal disease 677419020 Active 2024 scoliosis, [facility] malformati [facility] 10:52:08 Normal 79193809 Active 2024 EDDIE argueta [facility] L.L.CJenniffer 18:14:25 Heartburn 92716441 Active 2024 Que Gaitan MD [address] [place], [address], [facility], L.L.CJenniffer 16:07:03 Problem Notes None recorded. Procedures Surgical History Date Name Laterality Status Provider Name and Address Organization Details Recorded Time 02/05/20 Date of Last Pap Smear completed [facility] 06/24/2025 11:15:48 procedure on back completed EDDIE CASSIDY [facility]CJenniffer 12/27/2024 09:29:58 Imaging Results None recorded. Procedure [...] Details Last Updated DateTime 5 170.18 cm 26.5 kg/m2 80296.9 1 g 99 % 102 /min 18 /min 97.8 [degF] 134/80 mm[Hg] TUNDE VELASCO [facility] 10:10:55 Social History Question Answer Notes LastModified by Organizat ion Details LastModified Time Tobacco Smoking Status Never Smoker EDDIE argueta [facility] L.L.CJenniffer 12/27/2024 09:32:58 Are You Blind Or [...] Functional Status Question Answer Note LastModified by Organizat ion Details LastModified Time Do you use [...] Immunizations Vaccine Type Date Status Note Provider [place] heck and Address Organization Details Recorded Time RSV, bivalent, protein subunit RSVpreF, diluent reconstituted, 0.5 mL, PF 5 completed Not Available [facility] 06/24/2025 12:09:16 Tdap 5 completed Not Available [facility] 06/24/2025 12:09:16 COVID-19, mRNA, LNP-S, PF, 30 mcg/0.3 mL dose 1 completed Not Available [facility] 08/12/2025 10:30:59 COVID-19, mRNA, LNP-S, PF, 30 mcg/0.3 mL dose 1 completed Not Available [facility] 08/12/2025 10:30:59 Influenza, split virus, quadrivalent, PF 3 completed Not Available [facility] 08/12/2025 10:30:59 Influenza, MDCK, trivalent, preservative 4 completed Not Available [facility] 08/12/2025 10:30:59 Past Encounters Encounter ID Performer Location Encounter Start Date Encounter Closed Date Diagnosis/Indication Diagnosis SNOMED-CT Code Diagnosis ICD10 Code Diagnosis IMO Codes Diagnosis Note [id number] Que Gaitan MD [facility]) [address] [place] [phone] 06/24/2025 11:00:47 06/24/2025 12:00:11 Primigravida 530828086 Z34.03 [id number] Gestation period, 32 weeks 0658113 Z3A.32 [id number] Que Gaitan MD [facility] ([facility]) [address] [place] [address] 06/21/2025 11:18:45 06/23/2025 04:01:12 [id number] Que Gaitan MD [facility]) [address] [place] [phone] 07/07/2025 15:41:05 07/07/2025 16:39:59 Gestation period, 33 weeks 41138569 Z3A.33 4492807 [id number] Que Gaitan MD [facility]) [address] [place] [phone] 07/21/2025 09:52:20 07/21/2025 10:44:43 Primigravida 533132093 Z34.03 01931671 Gestation period, 35 weeks [id number] Z3A.35 [id number] Health Concerns Section Related Observation LastModified by Organization Detai ls LastModified Time None Recorded Concern Status LastModified by Organization Details LastModified Time None Recorded Payers Encounter Date Sequence Insurance Name Policy Number Policy [place] Covered Member ID [place] Member ID Guarantor Name 07/21/2025 1 [employer] [id number] [facility] [id number] [facility] Notes Date Note Type Note Provider Name and Address Organization Details Recorded Time 5 text/html jr ob routineReported by PatientHPIFor associated symptoms, patient reportscontractions (irr),nausea,emesis,edema (feet with prolonged standing),dizziness, andbreathlessnessbut reportsno abdominal pain,no cramping,normal movement,no bleeding,no vaginal discharge,no vaginal/vulvar itching or irritation,no dysuria,no frequency,no urgency,no hematuria,no fever,no constipation,no diarrhea/loose stool,no visual changes, andno headache.heartburn- improved,low back pain, bilateral hip pain, vaginal pressure, pelvic discomfortDenies any tobacco, nicotine, alcohol, or drug useROS as noted in the HPI Que Gaitan MD [address] [place] [address], [id number], [facility] 07/21/2025 10:39:41 OBGyn Episode Ob Episode Information Episode Created Date Number of Fetuses Patient Bloodtype Patient rh Status Prepregnancy Weight lbs Domestic Partner Domestic Partner Phone Father Name Commercial Real Estate Attorney Status 12/28/19 1 A Positive Davy OPEN Fetus Data First Name Last Name Admitted to NICU Weight (g) Sex Living Outcome Pediatric Complications Fetus ID Race Codes Race Delivery Type [id number] Problems Problem Notes Epi consult 08/02/25 Problem Name Start Date End Date Resolution Snomed Code Not e Normal 04/03/2025 [id number] Candida Calculation Initial Candida Date Initial Exam [...] Weight in lbs Pre/Post Dialysis Refused Weight 144.001845885006 BP Diastolic BP Location Tested BP Systolic [...] Weight in lbs Pre/Post Dialysis Refused Weight 144.61338178353 BP Diastolic BP Location Tested BP Systolic [...] Weight in lbs Pre/Post Dialysis Refused Weight 144.505565407995 BP Diastolic BP Location Tested BP Systolic [...] Weight in lbs Pre/Post Dialysis Refused Weight 150.614646994865 BP Diastolic BP Location Tested BP Systolic [...] Weight in lbs Pre/Post Dialysis Refused Weight 152.334688915761 BP Diastolic BP Location Tested BP Systolic [...] Weight in lbs Pre/Post Dialysis Refused Weight 155.22162582327 BP Diastolic BP Location Tested BP Systolic [...] Weight in lbs Pre/Post Dialysis Refused Weight 156.227908300116 BP Diastolic BP Location Tested BP Systolic [...] Cervic Station 31 cm none none Negative [place] trace Type Weight in lbs Pre/Post Dialysis Refused Weight 154.026195999182 BP Diastolic BP Location Tested BP Systolic [...] Cervic Station 32 cm none none Negative [place] trace Type Weight in lbs Pre/Post Dialysis Refused Weight 155.32462937557 BP Diastolic BP Location Tested BP Systolic BP Type 84 132 sitting Fetus Heart Rate Present A 148 Fetus Movement A Yes Comments vaginal discharge/pressure, back pain, sob, pelvic pain, sob, dizziness, Flowsheet Date 07/21/2025 Kemp Score Blood Edema Fundus Height Fundus Units Glucose Ketones Leukocytes Nitrite Labor Signs Protein Cervic Dilation Cervic Effacement Cervic Station none trace Negative [place] trace Type Weight in lbs Pre/Post Dialysis Refused Weight 169.154093034142 BP Diastolic BP Location Tested BP Systolic BP Type 80 134 sitting Fetus Heart Rate Present A 154 Present Fetus Movement A Yes Comments low back pain, pelvic pain, vaginal pressure,sob,edema feet, occ nausea/vomiting, heartburn, group B today, epi consult scheduled for 08/02/25 Flowsheet Date 07/25/2025 Kepm Score Blood Edema Fundus Height Fundus Units [...] Cervic Station 35 cm none trace Negative [place] neg 0cm -2 Type Weight in lbs Pre/Post Dialysis Refused Weight 165.348384324090 BP Diastolic BP Location Tested BP Systolic [...] Weight in lbs Pre/Post Dialysis Refused Weight 163.650273305161 BP Diastolic BP Location Tested BP Systolic BP Type 88 136 Fetus Heart Rate Present A 148 Present Fetus Movement A Yes Comments vaginal and pelvic pressure, swelling in feet, hip pain Flowsheet Date 08/12/2025 Kemp Score Blood Edema Fundus Height Fundus Units Glucose Ketones Leukocytes Nitrite Labor Signs Protein Cervic Dilation Cervic Effacement Cervic Station 38 cm none [place] neg 1cm 80% -3 Type Weight in lbs Pre/Post Dialysis Refused Weight 164.835466128033 BP Diastolic BP Location Tested BP Systolic [...] Estim ated Date of Delivery false Thalassemia (Djiboutian, Icelandic, Mediterranean, Or Background): MCV < 80 false Neural Tube Defect (Meningomyelocele, Spina Bifi da, Or Anencephaly) false Congenital Heart Defect false Down Syndrome false Jacob-Sachs (eg, Muslim, Cajun, Kenyan-Rwandan) f alse Mira Disease false Sickle Cell Disease Or Trait () false Hemophilia Or Other Blood Disorders false Muscular Dystrophy false Cystic Fibrosis false Sebring's Chorea false Intellectual Disability/Autism false If Yes, [...]
--- OUTSIDE RECORDS SUMMARY | 2025-08-15 17:13 | XMS_ITS | Continuity of Care Document ---
Author Organization [facility] Gabriel Saenz [facility] Musa, Peng, [facility] ([facility]) Address [address] [place] [address] Assessment No assessment recorded. Plan of Treatment Reminders Order Date Submit Date Provider Last Modified By Organization Details Last Modified Time Details Appointments POST-PA RTUM VISIT 026 09:50AM Que Gaitan MD Not available Not available Not available Lab CBC 025 025 [facility], [address] [place], [facility], [place], [address], 05/27/2025 13:18:09 glucose , QN [mass/v olume], blood 025 025 [facility], [address] [facility], [facility], [place], [address], 05/27/2025 14:42:22 Referral None recorde d. Procedures None recorde d. Surgeries None recorde d. Imaging None recorde d. Medication Orders None recorde d. Patient TargetsNo targets recorded. Patient InstructionsNo instructions recorded. Reason for Referral None Reported. Results Created Date Observation Date Name Description Value Unit Range Abnormal Flag Note LastModifiedBy Organization Detail LastModifiedTime 02/05/2002/08/2025 URINA LYSIS , COMPL ETE color YELLOW yellow normal Not Available [employer] [facility] [address] [place], [address], 02/08/2025 11:05:21 02/05/20 25 02/08/2025 URINA LYSIS , COMPL ETE appearance CLOUDY clear abnormal Not Available [address], [address], 02/08/2025 11:05:21 02/05/20 25 02/08/2025 URINA LYSIS , COMPL ETE specific gravity 1.024 1.001- 1.035 normal Not Available [address], [address], 02/08/2025 11:05:21 02/05/20 25 02/08/2025 URINA LYSIS , COMPL ETE pH 6.5 5.0-8. 0 normal Not Available [address], [address], 02/08/2025 11:05:21 02/05/20 25 02/08/2025 URINA LYSIS , COMPL ETE glucose NEGATI VE negati ve normal Not Available [address], [address], 02/08/2025 11:05:21 02/05/20 25 02/08/2025 URINA LYSIS , COMPL ETE bilirubin NEGATI VE negati ve normal Not Available [address], [address], 02/08/2025 11:05:21 02/05/20 25 02/08/2025 URINA LYSIS , COMPL ETE ketones NEGATI VE negati ve normal Not Available [facility] [address], [address], 02/08/2025 11:05:21 02/05/20 25 02/08/2025 URINA LYSIS , COMPL ETE occult blood NEGATI VE negati ve normal Not Available [facility] [address], [address], 02/08/2025 11:05:21 02/05/20 25 02/08/2025 URINA LYSIS , COMPL ETE protein NEGATI VE negati ve normal Not Available [address], [address], 02/08/2025 11:05:21 02/05/20 25 02/08/2025 URINA LYSIS , COMPL ETE nitrite NEGATI VE negati ve normal Not Available [address], [address], 02/08/2025 11:05:21 02/05/20 25 02/08/2025 URINA LYSIS , COMPL ETE leukocyte esterase NEGATI VE negati ve normal Not Available [address], [address], 02/08/2025 11:05:21 02/05/20 25 02/08/2025 URINA LYSIS , COMPL ETE WBC 6-10 /hpf < or = 5 abnormal Not Available [address], [address], 02/08/2025 11:05:21 02/05/20 25 02/08/2025 URINA LYSIS , COMPL ETE RBC 0-2 /hpf < or = 2 normal Not Available [address], [address], 02/08/2025 11:05:21 02/05/20 25 02/08/2025 URINA LYSIS , COMPL ETE squamous epithelial cells 10-20 /hpf < or = 5 abnormal Not Available [address], [address], 02/08/2025 11:05:21 02/05/20 25 02/08/2025 URINA LYSIS , COMPL ETE bacteria MANY /hpf none seen abnormal Not Available [address], [address], 02/08/2025 11:05:21 02/05/20 25 02/08/2025 URINA LYSIS , COMPL ETE hyaline cast NONE SEEN /lpf none seen normal Not Available [facility] [address], [address], 02/08/2025 11:05:21 02/05/20 25 02/08/2025 URINA LYSIS , COMPL ETE note This urine was arash zed for the prese nce of WBC, RBC, bacte octavia, casts , and other forme d eleme nts. Only those eleme nts seen were repor ric. Not Available [address], [address], 02/08/2025 11:05:21 02/05/20 25 02/08/2025 CBC (INCL UDES DIFF/ PLT) white blood cell count 6.8 thous and/u L 3.8-10 .8 normal Not Available [address], [address], 02/08/2025 11:05:22 02/05/20 25 02/08/2025 CBC (INCL UDES DIFF/ PLT) red blood cell count 4.14 moriah on/uL 3.80-5 .10 normal Not Available [address], [address], 02/08/2025 11:05:22 02/05/20 25 02/08/2025 CBC (INCL UDES DIFF/ PLT) hemoglobin 12.8 g/dL 11.7-1 5.5 normal Not Available [address], [address], 02/08/2025 11:05:22 02/05/20 25 02/08/2025 CBC (INCL UDES DIFF/ PLT) hematocrit 39.4 % 35.0-4 5.0 normal Not Available [address], [address], 02/08/2025 11:05:22 02/05/20 25 02/08/2025 CBC (INCL UDES DIFF/ PLT) MCV 95.2 fL 80.0-1 00.0 normal Not Available [address], [address], 02/08/2025 11:05:22 02/05/20 25 02/08/2025 CBC (INCL UDES DIFF/ PLT) MCH 30.9 pg 27.0-3 3.0 normal Not Available [address], [address], 02/08/2025 11:05:22 02/05/20 25 02/08/2025 CBC (INCL UDES DIFF/ PLT) MCHC 32.5 g/dL 32.0-3 6.0 normal For adult s, a sligh t decre ase in the calcu lated MCHC value (in the range of 30 to 32 g/dL) is most likel y not clini rafy signi ficramona t; carina er, it shoul d be inter prete d with cauti on in corre latio n with other red cell león eters and the patie nt's clini sara condi tion. Not Available [address], [address], 02/08/2025 11:05:22 02/05/20 25 02/08/2025 CBC (INCL UDES DIFF/ PLT) RDW 12.4 % 11.0-1 5.0 normal Not Available [address], [address], 02/08/2025 11:05:22 02/05/20 25 02/08/2025 CBC (INCL UDES DIFF/ PLT) platelet count 250 thous and/u L 140-40 0 normal Not Available [address], [address], 02/08/2025 11:05:22 02/05/20 25 02/08/2025 CBC (INCL UDES DIFF/ PLT) MPV 9.9 fL 7.5-12 .5 normal Not Available [facility] [address], [place], [address], 02/08/2025 11:05:22 02/05/20 25 02/08/2025 CBC (INCL UDES DIFF/ PLT) absolute neutrophils 4372 cells /uL 1500-7 800 normal Not Available [address], [address], 02/08/2025 11:05:22 02/05/20 25 02/08/2025 CBC (INCL UDES DIFF/ PLT) absolute lymphocytes 1795 cells /uL 850-39 00 normal Not Available [address], [address], 02/08/2025 11:05:22 02/05/20 25 02/08/2025 CBC (INCL UDES DIFF/ PLT) absolute monocytes 503 cells /uL 200-95 0 normal Not Available [address], [address], 02/08/2025 11:05:22 02/05/20 25 02/08/2025 CBC (INCL UDES DIFF/ PLT) absolute eosinophils 82 cells /uL 15-500 normal Not Available [address], [address], 02/08/2025 11:05:22 02/05/20 25 02/08/2025 CBC (INCL UDES DIFF/ PLT) absolute basophils 48 cells /uL 0-200 normal Not Available [address], [address], 02/08/2025 11:05:22 02/05/20 25 02/08/2025 CBC (INCL UDES DIFF/ PLT) neutrophils 64.3 % normal Not Available [address], [address], 02/08/2025 11:05:22 02/05/20 25 02/08/2025 CBC (INCL UDES DIFF/ PLT) lymphocytes 26.4 % normal Not Available [facility] [address], [address], 02/08/2025 11:05:22 02/05/20 25 02/08/2025 CBC (INCL UDES DIFF/ PLT) monocytes 7.4 % normal Not Available [facility] [address], [address], 02/08/2025 11:05:22 02/05/20 25 02/08/2025 CBC (INCL UDES DIFF/ PLT) eosinophils 1.2 % normal Not Available [facility] [address], [address], 02/08/2025 11:05:22 02/05/20 25 02/08/2025 CBC (INCL UDES DIFF/ PLT) basophils 0.7 % normal Not Available [facility] [address], [address], 02/08/2025 11:05:22 02/05/2002/08/2025 HEPAT ITIS B SURFA CE ANTIG EN W/REF L CONFI RM hepatitis B surface antigen NON-RE ACTIVE non-re active normal For addit ional infor hugh ngo e refer to http: //[facility] girard.que stdia gnost ics.c om/fa q/FAQ (This link is being provi ded for infor hiwot humphrey/ educa nia l purpo ses only. ) Not Available [facility] [address], [address], 02/08/2025 11:05:23 02/05/2002/08/2025 HEPAT ITIS C AB [...] a test for HCV RNA (test code 49768 ) is sugge sted. For addit ional infor sarahkarlos girard pleas e refer to http: //[facility] danielle stdia gnmarylu ics.c om/fa q/FAQ 22v1 (This link is being provi ded for infor matkarlos nal/ educa nia l purpo ses only. ) Not Available [facility] [address] [address] [place], [address], 02/08/2025 11:05:24 02/05/20 25 02/08/2025 RUBEL LA [...] with rubel la virus . Not Available [facility] [address] [address] [place], [address], 02/08/2025 11:05:24 02/05/20 25 02/08/2025 HIV 1/2 ANTIG EN/AN TIBOD Y,FOU RTH GENER ATION W/RFL HIV Ag/Ab, 4TH gen NON-RE ACTIVE non-re active normal HIV-1 antig en and HIV-1 /HIV- 2 antib odies were not detec ric. There is no labor atory evide nce of HIV infec tion. PLEAS E NOTE: This infor hiwot n has been discl osed to you from recor ds whose confi denti ality may be prote cted by state law. If your state requi res such prote ction , then the state law prohi bits you from jose juan thomson any furth er discl osure of the infor sarahio n witho ut the speci fic writt en conse nt of the perso n to whom it perta ins, or as other bradshaw permi tted by law. A gener al autho rirondat ion for the relea se of medic al or other infor matkarlos n is NOT suffi cient for this purpo se. For addit ional infor hiwot n pleas e refer to http: //[facility] danielle stdia gnost ics.c om/fa q/FAQ 106 (This link is being provi ded for infor matkarlos nal/ educa nia l purpo ses only. ) The perfo rmanc e of this assay has not been clini rafy valid ated in patie nts less than 2 years old. Not Available [employer] [address] [address] [place], [address], 02/08/2025 11:05:25 02/05/2002/08/2025 RPR (DX) W/REF L TITER AND T. PALLI DUM AB, IA RPR (DX) w/refl titer and confirmatory testing NON-RE ACTIVE non-re active normal No labor atory evide nce of syphi lis. If recen t expos ure is suspe cted, submi t a new sampl e in 2-4 weeks . Not Available [employer] [address] [place], [address], 02/08/2025 11:05:27 02/05/2002/08/2025 ANTIB RUDDY SCREE N, [...] alloi mmuni zed pregn amber. Not Available [employer] [address] [address] [place], [address], 02/08/2025 11:05:28 02/05/2002/08/2025 ABO GROUP AND RH TYPE ABO group A Not Available [employer] [address] [address] [address], [place], [address], 02/08/2025 11:05:28 02/05/2002/08/2025 ABO GROUP AND RH TYPE Rh type RH(D) POSITI VE For addit ional infor hugh ngo e refer to http: //[facility] Danielle stDia gnost ics.c om/fa q/FAQ 111 (This link is being provi ded for infor hiwot humphrey/ educa nia l purpo ses only. ) Not Available [facility] [address] [address] [address], [place], [address], 02/08/2025 11:05:28 02/05/2002/08/2025 DRUG MONIT OR, PANEL 1, SCREE N, URINE amphetamines NEGATI VE NG/mL <500 See Note A See Note A Not Available [facility] [address] [address] [address], [place], [address], 02/08/2025 11:05:29 02/05/20 25 02/08/2025 DRUG MONIT OR, PANEL 1, SCREE N, URINE barbiturates NEGATI VE NG/mL <300 See Note A See Note A Not Available [facility] [address] [address] [address], [place], [address], 02/08/2025 11:05:29 02/05/20 25 02/08/2025 DRUG MONIT OR, PANEL 1, SCREE N, URINE benzodiazepi regina NEGATI VE NG/mL <100 See Note A See Note A Not Available [facility] [address] [address] [place], [address], 02/08/2025 11:05:29 02/05/2002/08/2025 DRUG MONIT OR, PANEL 1, SCREE N, URINE cocaine metabolite NEGATI VE NG/mL <150 See Note A See Note A Not Available [facility] [address] [address] [address], [place], [address], 02/08/2025 11:05:29 02/05/20 25 02/08/2025 DRUG MONIT OR, PANEL 1, SCREE N, URINE marijuana metabolite NEGATI VE NG/mL <20 See Note A See Note A Not Available [address] [address] [address], [place], [address], 02/08/2025 11:05:29 02/05/20 25 02/08/2025 DRUG MONIT OR, PANEL 1, SCREE N, URINE methadone metabolite NEGATI VE NG/mL <100 See Note A See Note A Not Available [address] [address] [address], [place], [address], 02/08/2025 11:05:29 02/05/2002/08/2025 DRUG MONIT OR, PANEL 1, SCREE N, URINE opiates NEGATI VE NG/mL <100 See Note A See Note A Not Available [address] [address] [address], [place], [address], 02/08/2025 11:05:29 02/05/2002/08/2025 DRUG MONIT OR, PANEL 1, SCREE N, URINE oxycodone NEGATI VE NG/mL <100 See Note A See Note A Not Available [address] [address] [address], [place], [address], 02/08/2025 11:05:29 02/05/20 25 02/08/2025 DRUG MONIT OR, PANEL 1, SCREE N, URINE phencyclidin e NEGATI VE NG/mL <25 See Note A See Note A Not Available [address] [address] [address], [place], [address], 02/08/2025 11:05:29 02/05/2002/08/2025 DRUG MONIT OR, PANEL 1, SCREE N, URINE creatinine 208.5 mg/dL > or = 20.0 Not Available [address] [address] [address], [place], [address], 02/08/2025 11:05:29 02/05/20 25 02/08/2025 DRUG MONIT OR, PANEL 1, SCREE N, URINE pH 6.6 4.5-9. 0 Not Available [address] [address] [place], [address], 02/08/2025 11:05:29 02/05/20 25 02/08/2025 DRUG MONIT OR, PANEL 1, SCREE N, URINE oxidant NEGATI VE mcg/m L <200 Not Available [facility] [address] [address] [place], [address], 02/08/2025 11:05:29 02/05/20 25 02/08/2025 DRUG MONIT [...] mptiv e; based only on scree harper methdominguez ds, and they have not been confi rmed by a defin itive rita johnson. [facility] Pro[facility] ders needi ng Inter preta tion vianey tance , pleas e conta ct us at 1.877 .40.R XTOX (1.87 [phone] ) M-F, 8am to 10pm EST Not Available [address] [address] [place], [address], 02/08/2025 11:05:30 02/05/20 25 02/08/2025 CULTU RE, URINE , ROUTI NE culture, urine, routine SEE NOTE CULTU RE, URINE , ROUTI NE Micro Numbe r: [id number] Test Statu s: Final Speci men Sourc e: Urine Speci men Quali ty: Adequ ate Resul t: No Growt h Not Available [facility] [address] [address] [address], [place], [address], 02/08/2025 11:05:31 02/05/20 25 02/10/2025 THINP REP TIS PAP (REFL ) HPV MRNA E6/E7 clinical information: normal Pregn ant Not Available [address], [address], 02/10/2025 16:01:40 02/05/20 25 02/10/2025 THINP REP TIS PAP (REFL ) HPV MRNA E6/E7 LMP: normal NA Not Available [address], [address], 02/10/2025 16:01:40 02/05/20 25 02/10/2025 THINP REP TIS PAP (REFL ) HPV MRNA E6/E7 prev. Pap: normal NA Not Available [address], [address], 02/10/2025 16:01:40 02/05/20 25 02/10/2025 THINP REP TIS PAP (REFL ) HPV MRNA E6/E7 prev. BX: normal NA Not Available [address], [address], 02/10/2025 16:01:40 02/05/20 25 02/10/2025 THINP REP TIS PAP (REFL ) HPV MRNA E6/E7 source: normal Cervi x, Endoc ervix Not Available [address], [address], 02/10/2025 16:01:40 02/05/20 25 02/10/2025 THINP REP TIS PAP (REFL ) HPV MRNA E6/E7 statement of adequacy: normal Satis facto ry for evalu ation . Endoc ervic al/tr ansfo rmati on zone compo nent absen t. Age and/o r menst rual statu s not provi ded Not Available [address], [address], 02/10/2025 16:01:40 02/05/20 02/10/2025 THINP REP TIS PAP (REFL ) HPV MRNA E6/E7 interpretati on/result: normal Cytol ogy Resul ts: Negat seven for intra epith elial lesio n or mallizy farah . Not Available [address] [address] [place], [address], 02/10/2025 16:01:40 02/05/2002/10/2025 THINP REP TIS PAP (REFL ) HPV MRNA E6/E7 comment: normal This Pap test has been evalu ated with nida syed techn ology . Not Available [address] [address] [place], [address], 02/10/2025 16:01:40 02/05/2002/10/2025 THINP REP TIS PAP (REFL ) HPV MRNA E6/E7 cytotechnolo gist: normal JAF, CT( CP) CT Scree harper Locat ion: [address] [address] [place] [address] Not Available [address] [address] [place], [address], 02/10/2025 16:01:40 02/05/2002/10/2025 THINP REP TIS PAP [...] clini sara infor matio n. Not Available [address] [address] [place], [address], 02/10/2025 16:01:40 02/05/2002/04/2025 CT + NG + TV, DNA, urine /swab Chlamydia negati ve Not Available [facility] ([facility]) [address] [place], [address], 02/03/2025 17:49:54 02/05/2002/04/2025 CT + NG + TV, DNA, urine /swab Gonorrhea negati ve Not Available [facility] ([facility]) [address] [place], [address], 02/03/2025 17:49:54 02/05/20 25 02/04/2025 CT + NG + TV, DNA, urine /swab Trichomonas negati ve Not Available [facility] ([facility]) [address] [place], [address], 02/03/2025 17:49:54 05/27/2005/27/2025 CBC WBC 7.5 x10 4.0-10 .5 Not Available [facility] [address] [facility], [place], [address], 05/27/2025 13:18:09 05/27/2005/27/2025 CBC RBC 3.63 x10 3.50-5 .50 Not Available [facility] [address] [facility], [place], [address], 05/27/2025 13:18:09 05/27/2005/27/2025 CBC HGB 11.3 g/dL 12.0-1 6.0 low Not Available [facility] [address] [facility], [place], [address], 05/27/2025 13:18:09 05/27/2005/27/2025 CBC HCT 34.6 % 37.0-4 7.0 low Not Available [facility] [address] [facility], [place], [address], 05/27/2025 13:18:09 05/27/2005/27/2025 CBC MCV 95.4 fL 80.0-9 9.9 Not Available [facility] [address] [facility] 1, [place], [address], 05/27/2025 13:18:05/27/2005/27/2025 CBC MCH 31.1 pg 27.0-3 2.0 Not Available [facility] [address] [facility] 1, [place], [address], 05/27/2025 13:18:05/27/2005/27/2025 CBC MCHC 32.7 g/dL 32.0-3 6.0 Not Available [facility] [address] [facility] 1, [place], [address], 05/27/2025 13:18:05/27/2005/27/2025 CBC RDW 12.7 % 11.5-1 4.5 Not Available [facility] [address] [facility] 1, [place], [address], 05/27/2025 13:18:05/27/2005/27/2025 CBC plt 232.5 x10 140.0- 451.0 Not Available [facility] [address] [facility], [place], [address], 05/27/2025 13:18:05/27/2005/27/2025 CBC lymphocytes % 19.6 % 20.0-5 0.0 low Not Available [facility] [address] [facility] 1, [place], [address], 05/27/2025 13:18:05/27/2005/27/2025 CBC granulcytes % 73.2 % 30.0-7 0.0 high Not Available [facility] [address] [facility] 1, [place], [address], 05/27/2025 13:18:09 05/27/20 25 05/27/2025 CBC monocytes % 6.3 % 2.0-16 .0 Not Available [facility] [address] [facility], [place], [address], 05/27/2025 13:18:09 05/27/20 25 05/27/2025 CBC granulcytes# 5.5 x10 Not [facility] [address] [address], [place], [address], 05/27/2025 13:18:09 05/27/20 25 05/27/2025 CBC lymphocytes # 1.5 x10 Not Available [facility] [address] [address], [place], [address], 05/27/2025 13:18:09 05/27/20 25 05/27/2025 CBC monocytes # 0.5 x10 Not Avai lable [facility] [address] [address], [place], [address], 05/27/2025 13:18:09 05/27/20 25 05/27/2025 GLUCO SE SCREE N glucose screen 108.0 mg/dL Not Available [place] [id number], [address], 05/27/2025 14:42:22 01/27/20 25 01/13/2025 US, obste tric, 1st trime ster No observ ation record ed. [email or web address] [facility] ([facility]) [address] [place], [address], 01/27/2025 09:10:51 04/05/20 25 04/04/2025 US, obste tric, 2nd trime ster No observ ation record ed. [facility] [address] [place], [address], 04/06/2025 13:07:14 Result Notes None recorded. Problems Name Problem SNOMED Code Status Onset Date Resolution Date Notes Provider Name and Address Organization Details Recorded Time History of musculoske letal disease 593073711 Active 2024 scoliosis, [facility]i [facility], L.LJennifferCJenniffer 10:52:08 Normal 27374469 Active 2024 EDDIE CASSIDY [facility] L.L.CJenniffer 18:14:25 Heartburn 58594506 Active 2024 Que Gaitan MD [address] [place], [address], [facility], LJennifferLJennifferCJenniffer 16:07:03 Problem Notes None recorded. Procedures Surgical History Date Name Laterality Status Provider Name and Address Organization Details Recorded Time 02/05/20 Date of Last Pap Smear completed [facility] HARLEEN [facility], L.LJennifferCJenniffer 06/24/2025 11:15:48 procedure on back completed EDDIE CASSIDY [facility], L.L.CJenniffer 12/27/2024 09:29:58 Imaging Results None recorded. [...] Updated DateTime 5 170.18 cm 24.3 kg/m2 52294.5 2 g 18 /min 94 /min 98 % 98.4 [degF] 132/82 mm[Hg] EDDIE CASSIDY [facility] 5 11:16:15 Social History Question Answer Notes LastModified by [employer] Details LastModified Time Tobacco Smoking Status Never Smoker EDDIE CASSIDY [facility] 12/27/2024 09:32:58 Are You Blind Or Do You Have Difficulty Seeing? [place] [id number] Information not available 12/27/2024 Are You Deaf Or Do You Have Serious Difficulty Hearing? No Information not available 12/27/2024 What Was The Date Of Your Most Recent Tobacco Screening? 02/04/2025 [email or web address] Information not available 02/04/2025 What Is Your Relationship Status? [facility] Information not available 12/27/2024 Are You Sexually Active? Yes [facility] Information not available 12/27/2024 Do You Have Difficulty Walking Or Climbing Stairs? No Information not available 12/27/2024 Sex: Unknown Functional Status Question Answer Note LastModified by [employer] Details LastModified Time Do you use any [...] mL, PF 5 completed Not Available [facility] 06/24/2025 12:09:16 Tdap 5 completed Not Available [facility] 06/24/2025 12:09:16 COVID-19, mRNA, LNP-S, PF, 30 mcg/0.3 mL dose 1 completed Not Available [facility] 08/12/2025 10:30:59 COVID-19, mRNA, LNP-S, PF, 30 mcg/0.3 mL dose 1 completed Not Available [facility] 08/12/2025 10:30:59 Influenza, split virus, quadrivalent, PF 3 completed Not Available [facility] 08/12/2025 10:30:59 Influenza, MDCK, trivalent, preservative 4 completed [facility] Available [facility] 08/12/2025 10:30:59 Past Encounters Encounter ID Performer Location Encounter Start Date Encounter Closed Date Diagnosis/Indication Diagnosis SNOMED-CT Code Diagnosis ICD10 Code Diagnosis IMO Codes Diagnosis Note [id number] Que Gaitan MD [facility] ([facility]) [address] [place], [place] [phone] 05/12/2025 15:56:55 05/17/2025 16:53:36 Normal 07973887 Z34.02 8772001 Gestation period, 25 weeks 28265133 Z3A.25 4830663 Heartburn 96292709 R12 78465 [id number] Que Gaitan MD [facility] ([facility]) [address] [place] [phone] 05/27/2025 10:12:40 05/30/2025 10:30:26 Gestation period, 28 weeks 08763410 Z3A.28 [id number] Que Gaitan MD [facility] ([facility]) [address] [place] [phone] 05/27/2025 10:17:05 05/27/2025 11:37:07 Normal 75419327 Z34.03 1814819 Gestation period, 28 weeks 11035789 Z3A.28 6674012 Health Concerns Section Related Observation LastModified by Organization Detai ls LastModified Time None Recorded Concern Status LastModified by Organization Details LastModified Time None Recorded Payers Encounter Date Sequence Insurance Name Policy Number Policy [place] Covered Member ID [place] Member ID Guarantor Name 05/27/2025 1 AGUEDA (PPO) [id number] Jimena Richards [id number] Jimena Richards Notes Date Note Type [...] noted in the HPI Que Gaitan MD [address] [place] [address], [id number], [facility], [facility] 05/27/2025 11:33:19 OBGyn Episode Ob Episode Information Episode Created Date Number of Fetuses Patient Bloodtype Patient rh Status Prepregnancy Weight lbs Domestic Partner Domestic Partner Phone Father Name Gas Appliance Adjuster Status 12/28/19 1 A Positive Davy OPEN Fetus Data First Name Last Name Admitted to NICU Weight (g) Sex Living Outcome Pediatric Complications Fetus ID Race Codes Race Delivery Type [id number] Problems Problem Notes Epi consult 08/02/25 Problem Name Start Date End Date Resolution Snomed Code Not e Normal 04/03/2025 [id number] Candida Calculation Initial Candida Date Initial Exam [...] Weight in lbs Pre/Post Dialysis Refused Weight 144.264312794687 BP Diastolic BP Location Tested BP Systolic [...] Weight in lbs Pre/Post Dialysis Refused Weight 144.86147722621 BP Diastolic BP Location Tested BP Systolic [...] Weight in lbs Pre/Post Dialysis Refused Weight 144.833528800787 BP Diastolic BP Location Tested BP Systolic [...] Weight in lbs Pre/Post Dialysis Refused Weight 150.711894881743 BP Diastolic BP Location Tested BP Systolic [...] Weight in lbs Pre/Post Dialysis Refused Weight 152.667606159345 BP Diastolic BP Location Tested BP Systolic [...] Weight in lbs Pre/Post Dialysis Refused Weight 155.76461646200 BP Diastolic BP Location Tested BP Systolic [...] Weight in lbs Pre/Post Dialysis Refused Weight 156.022714653267 BP Diastolic BP Location Tested BP Systolic [...] Cervic Station 31 cm none none Negative Baxter Carr trace Type Weight in lbs Pre/Post Dialysis Refused Weight 154.886367608388 BP Diastolic BP Location Tested BP Systolic [...] Cervic Station 32 cm none none Negative Baxter Carr trace Type Weight in lbs Pre/Post Dialysis Refused Weight 155.68326618535 BP Diastolic BP Location Tested BP Systolic BP Type 84 132 sitting Fetus Heart Rate Present A 148 Fetus Movement A Yes Comments vaginal discharge/pressure, back pain, sob, pelvic pain, sob, dizziness, Flowsheet Date 07/21/2025 Kemp Score Blood Edema Fundus Height Fundus Units Glucose Ketones Leukocytes Nitrite Labor Signs Protein Cervic Dilation Cervic Effacement Cervic Station none trace Negative Baxter Carr trace Type Weight in lbs Pre/Post Dialysis Refused Weight 169.322055652925 BP Diastolic BP Location Tested BP Systolic [...] Cervic Station 35 cm none trace Negative Baxter Carr neg 0cm -2 Type Weight in lbs Pre/Post Dialysis Refused Weight 165.585234532394 BP Diastolic BP Location Tested BP Systolic BP Type 76 140 sitting Fetus Heart Rate Present A 144 Present Fetus Movement A Yes Comments abdominal pain/cramping, swathi k,pelvic,hip pain, vaginal pressure,N/V, dizziness,edema in feet Flowsheet Date 08/02/2025 Kemp Score Blood Edema Fundus Height Fundus Units Glucose Ketones Leukocytes Nitrite Labor Signs Protein Cervic Dilation Cervic Effacement Cervic Station none none Baxter Carr 1+ Type Weight in lbs Pre/Post Dialysis Refused Weight 163.966700785850 BP Diastolic BP Location Tested BP Systolic [...] Weight in lbs Pre/Post Dialysis Refused Weight 164.218013247208 BP Diastolic BP Location Tested BP Systolic [...] Estim ated Date of Delivery false Thalassemia (Maltese, Guyanese, Mediterranean, Or Background): MCV < 80 false Neural Tube Defect (Meningomyelocele, Spina Bifi da, Or Anencephaly) false Congenital Heart Defect false Down Syndrome false Jacob-Sachs (eg, Catholic, Cajun, Turkmen-Filipino) f alse Mira Disease false Sickle Cell [...]
--- OUTSIDE RECORDS SUMMARY | 2025-08-15 17:13 | XMS_ITS | Continuity of Care Document ---
Author Organization [place] - [facility] Musa, LCelena, [facility] ([facility]) Address [address] [place] [address] Assessment No assessment recorded. Plan of Treatment Reminders Order Date Submit Date Provider Last Modified By Organization Details Last Modified Time Details Appointments POST-PART VISIT 2025 09:50A M Que Gaitan MD Not available Not available Not available Lab None recorded. Referral None recorded. Procedures None recorded. Surgeries None recorded. Imaging None recorded. Medication Orders omeprazol e 20 mg capsule,d elayed release 2024 025 [facility], [address] [address], [place], [address], 07/29/2025 16:07:51 Patient TargetsNo targets recorded. Patient InstructionsNo instructions recorded. Reason for Referral None Reported. Results Created Date Observation Date Name Description Value Unit Range Abnormal Flag Note LastModifiedBy Organization Detail LastModifiedTime 02/05/2002/08/2025 URINA LYSIS , COMPL ETE color YELLOW yellow normal Not Available [facility] [address] [place], [address], 02/08/2025 11:05:21 02/05/2002/08/2025 URINA LYSIS , COMPL ETE appearance CLOUDY clear abnormal Not Available [facility] [address] [place], [address], 02/08/2025 11:05:21 02/05/2002/08/2025 URINA LYSIS , COMPL ETE specific gravity 1.024 1.001- 1.035 normal Not Available [address], [address], 02/08/2025 11:05:21 02/05/20 25 02/08/2025 URINA LYSIS , COMPL ETE pH 6.5 5.0-8. 0 normal Not Available [address], [address], 02/08/2025 11:05:21 02/05/20 25 02/08/2025 URINA LYSIS , COMPL ETE glucose NEGATI VE negati ve normal Not Available [address], [address], 02/08/2025 11:05:21 02/05/20 25 02/08/2025 URINA LYSIS , COMPL ETE bilirubin NEGATI VE negati ve normal Not Available [address], [address], 02/08/2025 11:05:21 02/05/20 25 02/08/2025 URINA LYSIS , COMPL ETE ketones NEGATI VE negati ve normal Not Available [address], [address], 02/08/2025 11:05:21 02/05/20 25 02/08/2025 URINA LYSIS , COMPL ETE occult blood NEGATI VE negati ve normal Not Available [address], [address], 02/08/2025 11:05:21 02/05/20 25 02/08/2025 URINA LYSIS , COMPL ETE protein NEGATI VE negati ve normal Not Available [address], [address], 02/08/2025 11:05:21 02/05/20 25 02/08/2025 URINA LYSIS , COMPL ETE nitrite NEGATI VE negati ve normal Not Available [address], [address], 02/08/2025 11:05:21 02/05/20 25 02/08/2025 URINA LYSIS , COMPL ETE leukocyte esterase NEGATI VE negati ve normal Not Available [address], [address], 02/08/2025 11:05:21 02/05/20 25 02/08/2025 URINA LYSIS , COMPL ETE WBC 6-10 /hpf < or = 5 abnormal Not Available [address], [address], 02/08/2025 11:05:21 02/05/20 25 02/08/2025 URINA LYSIS , COMPL ETE RBC 0-2 /hpf < or = 2 normal Not Available [address], [address], 02/08/2025 11:05:21 02/05/20 25 02/08/2025 URINA LYSIS , COMPL ETE squamous epithelial cells 10-20 /hpf < or = 5 abnormal Not Available [address], [address], 02/08/2025 11:05:21 02/05/20 25 02/08/2025 URINA LYSIS , COMPL ETE bacteria MANY /hpf none seen abnormal Not Available [address], [address], 02/08/2025 11:05:21 02/05/20 25 02/08/2025 URINA LYSIS , COMPL ETE hyaline cast NONE SEEN /lpf none seen normal Not Available [address], [address], 02/08/2025 11:05:21 02/05/20 25 02/08/2025 URINA LYSIS , COMPL ETE note This urine was arash zed for the prese nce of WBC, RBC, bacte octavia, casts , and other forme d eleme nts. Only those eleme nts seen were repor ric. Not Available [address], [address], 02/08/2025 11:05:21 02/05/20 25 02/08/2025 CBC (INCL UDES DIFF/ PLT) white blood cell count 6.8 thous and/u L 3.8-10 .8 normal Not Available [address], [address], 02/08/2025 11:05:22 02/05/20 25 02/08/2025 CBC (INCL UDES DIFF/ PLT) red blood cell count 4.14 moriah on/uL 3.80-5 .10 normal Not Available [facility] [address], [address], 02/08/2025 11:05:22 02/05/20 25 02/08/2025 CBC (INCL UDES DIFF/ PLT) hemoglobin 12.8 g/dL 11.7-1 5.5 normal Not Available [address], [address], 02/08/2025 11:05:22 02/05/20 25 02/08/2025 CBC (INCL UDES DIFF/ PLT) hematocrit 39.4 % 35.0-4 5.0 normal Not Available [facility] [address], [address], 02/08/2025 11:05:22 02/05/20 25 02/08/2025 CBC (INCL UDES DIFF/ PLT) MCV 95.2 fL 80.0-1 00.0 normal Not Available [address], [address], 02/08/2025 11:05:22 02/05/20 25 02/08/2025 CBC (INCL UDES DIFF/ PLT) MCH 30.9 pg 27.0-3 3.0 normal Not Available [address], [address], 02/08/2025 11:05:22 02/05/20 25 02/08/2025 CBC (INCL UDES DIFF/ PLT) MCHC 32.5 g/dL 32.0-3 6.0 normal For adult s, a sligh t decre ase in the calcu lated MCHC value (in the range of 30 to 32 g/dL) is most likel y not clini rafy signi fican t; josefinaev er, it shoul d be inter prete d with cauti on in corre latio n with other red cell león eters and the patie nt's clini sara condi tion. Not Available [address], [address], 02/08/2025 11:05:22 02/05/20 25 02/08/2025 CBC (INCL UDES DIFF/ PLT) RDW 12.4 % 11.0-1 5.0 normal Not Available [address], [address], 02/08/2025 11:05:22 02/05/20 25 02/08/2025 CBC (INCL UDES DIFF/ PLT) platelet count 250 thous and/u L 140-40 0 normal Not Available [address], [address], 02/08/2025 11:05:22 02/05/20 25 02/08/2025 CBC (INCL UDES DIFF/ PLT) MPV 9.9 fL 7.5-12 .5 normal Not Available [address], [address], 02/08/2025 11:05:22 02/05/20 25 02/08/2025 CBC (INCL UDES DIFF/ PLT) absolute neutrophils 4372 cells /uL 1500-7 800 normal Not Available [facility] [address], [address], 02/08/2025 11:05:22 02/05/20 25 02/08/2025 CBC (INCL UDES DIFF/ PLT) absolute lymphocytes 1795 cells /uL 850-39 00 normal Not Available [facility] [address], [address], 02/08/2025 11:05:22 02/05/20 25 02/08/2025 CBC (INCL UDES DIFF/ PLT) absolute monocytes 503 cells /uL 200-95 0 normal Not Available [facility] [address], [address], 02/08/2025 11:05:22 02/05/20 25 02/08/2025 CBC (INCL UDES DIFF/ PLT) absolute eosinophils 82 cells /uL 15-500 normal Not Available [facility] [address], [address], 02/08/2025 11:05:22 02/05/20 25 02/08/2025 CBC (INCL UDES DIFF/ PLT) absolute basophils 48 cells /uL 0-200 normal Not Available [address], [address], 02/08/2025 11:05:22 02/05/20 25 02/08/2025 CBC (INCL UDES DIFF/ PLT) neutrophils 64.3 % normal Not Available [address], [address], 02/08/2025 11:05:22 02/05/20 25 02/08/2025 CBC (INCL UDES DIFF/ PLT) lymphocytes 26.4 % normal Not Available [facility] [address], [address], 02/08/2025 11:05:22 02/05/20 25 02/08/2025 CBC (INCL UDES DIFF/ PLT) monocytes 7.4 % normal Not Available [facility] [address], [address], 02/08/2025 11:05:22 02/05/20 25 02/08/2025 CBC (INCL UDES DIFF/ PLT) eosinophils 1.2 % normal Not Available [facility] [address], [address], 02/08/2025 11:05:22 02/05/20 25 02/08/2025 CBC (INCL UDES DIFF/ PLT) basophils 0.7 % normal Not Available [facility] [address], [address], 02/08/2025 11:05:22 02/05/20 25 02/08/2025 HEPAT ITIS B SURFA CE ANTIG EN W/REF L CONFI RM hepatitis B surface antigen NON-RE ACTIVE non-re active normal For addit ional infor hiwot girard, hugh e refer to http: //[facility] n.que stdia gnost ics.c om/fa q/FAQ 202 (This link is being provi ded for infor matio nal/ educa nia l purpo ses only. ) Not Available [facility] [address], [address], 02/08/2025 11:05:23 02/05/20 25 02/08/2025 HEPAT ITIS [...] a test for HCV RNA (test code 85916 ) is sugge sted. For addit ional infor matio n pleas e refer to http: //[facility] cat n.que stdia gnost ics.c om/fa q/FAQ 22v1 (This link is being provi ded for infor matio nal/ educa nia l purpo ses only. ) Not Available [facility] [address] [place], [address], 02/08/2025 11:05:24 02/05/20 25 02/08/2025 RUBEL LA [...] la virus . Not Available [facility] [address] [address], [place], [address], 02/08/2025 11:05:24 02/05/20 25 02/08/2025 HIV 1/2 [...] matio n pleas e refer to http: //[facility] renuka girard.que stdia gnost ics.c om/fa q/FAQ 106 (This link is being provi ded for infor hiwot humphrey/ educa nia l purpo ses only. ) The perfo rmanc e of this assay has not been clini rafy valid ated in patie nts less than 2 years old. Not Available [facility] [address], [address], 02/08/2025 11:05:25 02/05/20 25 02/08/2025 RPR (DX) W/REF L TITER AND T. PALLI DUM AB, IA RPR (DX) w/refl titer and confirmatory testing NON-RE ACTIVE non-re active normal No labor atory evide nce of syphi lis. If recen t expos ure is suspe cted, submi t a new sampl e in 2-4 weeks . Not Available [facility] [address], [address], 02/08/2025 11:05:27 02/05/20 25 02/08/2025 ANTIB RUDDY [...] alloi mmuni zed pregn amber. Not Available [facility] [address] [place], [address], 02/08/2025 11:05:28 02/05/20 25 02/08/2025 ABO GROUP AND RH TYPE ABO group A Not Available [facility] [address], [address], 02/08/2025 11:05:28 02/05/20 25 02/08/2025 ABO GROUP AND RH TYPE Rh type RH(D) POSITI VE For addit ional infor hugh ngo e refer to http: //soniya Lambertia gnost ics.c om/fa q/FAQ 111 (This link is being provi ded for infor hiwot humphrey/ kasey scott only. ) Not Available [facility] [address] [address] [address], [place], [address], 02/08/2025 11:05:28 02/05/20 25 02/08/2025 DRUG MONIT OR, PANEL 1, SCREE N, URINE amphetamines NEGATI VE NG/mL <500 See Note A See Note A Not Available [facility] [address] [address] [address], [place], [address], 02/08/2025 11:05:29 02/05/20 25 02/08/2025 DRUG MONIT OR, PANEL 1, SCREE N, URINE barbiturates NEGATI VE NG/mL <300 See Note A See Note A Not Available [facility] [address] [address] [address], [place], [address], 02/08/2025 11:05:29 02/05/20 25 02/08/2025 DRUG MONIT OR, PANEL 1, SCREE N, URINE benzodiazepi reigna NEGATI VE NG/mL <100 See Note A See Note A Not Available [facility] [address] [address] [address], [place], [address], 02/08/2025 11:05:29 02/05/20 25 02/08/2025 DRUG MONIT OR, PANEL 1, SCREE N, URINE cocaine metabolite NEGATI VE NG/mL <150 See Note A See Note A Not Available [facility] [address] [address] [address], [place], [address], 02/08/2025 11:05:29 02/05/20 25 02/08/2025 DRUG MONIT OR, PANEL 1, SCREE N, URINE marijuana metabolite NEGATI VE NG/mL <20 See Note A See Note A Not Available [facility] [address] [address] [address], [place], [address], 02/08/2025 11:05:29 02/05/20 25 02/08/2025 DRUG MONIT OR, PANEL 1, SCREE N, URINE methadone metabolite NEGATI VE NG/mL <100 See Note A See Note A Not Available [address] [address] [address], [place], [address], 02/08/2025 11:05:29 02/05/20 25 02/08/2025 DRUG MONIT OR, PANEL 1, SCREE N, URINE opiates NEGATI VE NG/mL <100 See Note A See Note A Not Available [address] [address] [address], [place], [address], 02/08/2025 11:05:02/05/2002/08/2025 DRUG MONIT OR, PANEL 1, SCREE N, URINE oxycodone NEGATI VE NG/mL <100 See Note A See Note A Not Available [address] [address] [address], [place], [address], 02/08/2025 11:05:29 02/05/2002/08/2025 DRUG MONIT OR, PANEL 1, SCREE N, URINE phencyclidin e NEGATI VE NG/mL <25 See Note A See Note A Not Available [address] [address] [address], [place], [address], 02/08/2025 11:05:29 02/05/2002/08/2025 DRUG MONIT OR, PANEL 1, SCREE N, URINE creatinine 208.5 mg/dL > or = 20.0 Not Available [address] [address] [address], [place], [address], 02/08/2025 11:05:29 02/05/2002/08/2025 DRUG MONIT OR, PANEL 1, SCREE N, URINE pH 6.6 4.5-9. 0 Not Available [address] [address] [address], [place], [address], 02/08/2025 11:05:29 02/05/20 25 02/08/2025 DRUG MONIT OR, PANEL 1, SCREE N, URINE oxidant NEGATI VE mcg/m L <200 Not Available [address] [address] [place], [address], 02/08/2025 11:05:29 02/05/20 25 02/08/2025 DRUG MONIT [...] presu mptiv e; based only on nava saleem metho ds, and they have not been confi rmed by a defin itive metho d. Healt hcare Provi ders needi ng Inter preta tion vianey tance , pleas e conta ct us at 1.877 .40.R XTOX (1.87 [phone] .[phone] ) M-F, 8am to 10pm EST Not Available [address] [address] [address], [place], [address], 02/08/2025 11:05:30 02/05/20 25 02/08/2025 CULTU RE, URINE , ROUTI NE culture, urine, routine SEE NOTE CULTU RE, URINE , ROUTI NE Micro Numbe r: [id number] Test Statu s: Final Speci men Sourc e: Urine Speci men Quali ty: Adequ ate Resul t: No Growt h Not Available [facility] [address] [place], [address], 02/08/2025 11:05:31 02/05/20 25 02/10/2025 THINP REP TIS PAP (REFL ) HPV MRNA E6/E7 clinical information: normal Pregn ant Not Available [facility] [address] [place], [address], 02/10/2025 16:01:40 02/05/20 25 02/10/2025 THINP REP TIS PAP (REFL ) HPV MRNA E6/E7 LMP: normal NA Not Available [address], [address], 02/10/2025 16:01:40 02/05/20 25 02/10/2025 THINP REP TIS PAP (REFL ) HPV MRNA E6/E7 prev. Pap: normal NA Not Available [address], [address], 02/10/2025 16:01:40 02/05/2002/10/2025 THINP REP TIS PAP (REFL ) HPV MRNA E6/E7 prev. BX: normal NA Not Available [address], [address], 02/10/2025 16:01:40 02/05/20 25 02/10/2025 THINP REP TIS PAP (REFL ) HPV MRNA E6/E7 source: normal Cervi x, Endoc ervix Not Available [address], [address], 02/10/2025 16:01:40 02/05/2002/10/2025 THINP REP TIS PAP (REFL ) HPV MRNA E6/E7 statement of adequacy: normal Satis facto ry for evalu ation . Endoc ervic al/tr ansfo rmati on zone compo nent absen t. Age and/o r menst rual statu s not provi ded Not Available [address], [address], 02/10/2025 16:01:40 02/05/2002/10/2025 THINP REP TIS PAP (REFL ) HPV MRNA E6/E7 interpretati on/result: normal Cytol ogy Resul ts: Negat seven for intra epith elial lesio n or malig sofi . Not Available [address] [place], [address], 02/10/2025 16:01:40 02/05/20 25 02/10/2025 THINP REP TIS PAP (REFL ) HPV MRNA E6/E7 comment: normal This Pap test has been evalu ated with nida syed techn ology . Not Available [address] [address] [place], [address], 02/10/2025 16:01:40 02/05/20 25 02/10/2025 THINP REP TIS PAP (REFL ) HPV MRNA E6/E7 cytotechnolo gist: normal JAF, CT( CP) CT Scree harper Locat ion: [address] [address] [place] [address] Not Available [address] [address] [place], [address], 02/10/2025 16:01:40 02/05/20 25 02/10/2025 THINP REP [...] clini sara infor matio n. Not Available [address] [address] [place], [address], 02/10/2025 16:01:40 02/05/20 25 02/04/2025 CT + NG + TV, DNA, urine /swab Chlamydia negati ve Not Available [facility] ([facility]) [address] [place] [address], [address], 02/03/2025 17:49:54 02/05/20 25 02/04/2025 CT + NG + TV, DNA, urine /swab Gonorrhea negati ve Not Available [facility] ([facility]) [address] [place], [address], 02/03/2025 17:49:54 02/05/2002/04/2025 CT + NG + TV, DNA, urine /swab Trichomonas negati ve Not Available [facility] ([facility]) [address] [place], [address], 02/03/2025 17:49:54 05/27/2005/27/2025 CBC WBC 7.5 x10 4.0-10 .5 Not Available [facility] [address] [facility] [address], [place], [address], 05/27/2025 13:18:09 05/27/2005/27/2025 CBC RBC 3.63 x10 3.50-5 .50 Not Available [facility] [address] [facility] 1, [place], [address], 05/27/2025 13:18:09 05/27/2005/27/2025 CBC HGB 11.3 g/dL 12.0-1 6.0 low Not Available [facility] [address] [facility] 1, [place], [address], 05/27/2025 13:18:09 05/27/2005/27/2025 CBC HCT 34.6 % 37.0-4 7.0 low Not Available [facility] [address] [facility] 1, [place], [address], 05/27/2025 13:18:09 05/27/2005/27/2025 CBC MCV 95.4 fL 80.0-9 9.9 Not Available [facility] [address] [facility] 1, [place], [address], 05/27/2025 13:18:05/27/2005/27/2025 CBC MCH 31.1 pg 27.0-3 2.0 Not Available [facility] [address] [facility] 1, [place], [address], 05/27/2025 13:18:05/27/2005/27/2025 CBC MCHC 32.7 g/dL 32.0-3 6.0 Not Available [facility] [address] [facility] [address], [place], [address], 05/27/2025 13:18:05/27/2005/27/2025 CBC RDW 12.7 % 11.5-1 4.5 Not Available [facility] [address] [facility] [address], [place], [address], 05/27/2025 13:18:05/27/2005/27/2025 CBC plt 232.5 x10 140.0- 451.0 Not Available [facility] [address] [facility] [address], [place], [address], 05/27/2025 13:18:05/27/2005/27/2025 CBC lymphocytes % 19.6 % 20.0-5 0.0 low Not Available [facility] [address] [facility] [address], [place], [address], 05/27/2025 13:18:05/27/2005/27/2025 CBC granulcytes % 73.2 % 30.0-7 0.0 high Not Available [facility] [address] [facility] [address], [place], [address], 05/27/2025 13:18:05/27/2005/27/2025 CBC monocytes % 6.3 % 2.0-16 .0 Not Available [facility] [address] [facility] [address], [place], [address], 05/27/2025 13:18:09 05/27/20 25 05/27/2025 CBC granulcytes# 5.5 x10 Not Jennifer ilable [facility] [address] [facility] [address], [place], [address], 05/27/2025 13:18:09 05/27/20 25 05/27/2025 CBC lymphocytes # 1.5 x10 Not Available [facility] [address] [facility] [address], [place], [address], 05/27/2025 13:18:09 05/27/20 25 05/27/2025 CBC monocytes # 0.5 x10 Not Avai lable [facility] [address] [facility] [address], [place], [address], 05/27/2025 13:18:09 05/27/20 25 05/27/2025 GLUCO SE SCREE N glucose screen 108.0 mg/dL Not Available [facility] [address] [facility] [address], [place], [address], 05/27/2025 14:42:22 07/21/20 25 07/24/2025 STREP TOCOC CUS, GROUP B CULTU RE streptococcu s, group B culture SEE NOTE STREP TOCOC CUS, GROUP B CULTU RE Micro Numbe r: [id number] Test Statu s: Final Speci men Sourc e: Vagin al/an orect al Speci men Quali ty: Adequ ate Resul t: No group B Strep tococ cus isola ric Note per CDC guide lines optim al recov rosa is achie stanislav by swabb ing both the lower vagin a and rectu m (thro ugh the anal sphin cter) . Not Available [facility] [address] [address], [place], [address], 07/24/2025 11:53:50 01/27/20 25 01/13/2025 US, obste tric, 1st trime ster No observ ation record ed. [email or web address] [facility] [address] [place], [address], 01/27/2025 09:10:51 04/05/20 25 04/04/2025 US, obste tric, 2nd trime ster No observ ation record ed. [facility] [address] [place], [address], 04/06/2025 13:07:14 Result Notes None recorded. Problems Name Problem SNOMED Code Status Onset Date Resolution Date Notes Provider Name and Address Organization Details Recorded Time History of musculoske letal disease 367153850 Active 2024 scoliosis, chiari malformati on [facility] MIGUEL ANGEL Ellis [facility] 10:52:08 Normal 95502261 Active 2024 EDDIE argueta [facility] 18:14:25 Heartburn 15730197 Active 2024 Que Gaitan MD [address] [place], [address] [facility] 16:07:03 Problem Notes None recorded. Procedures Surgical History Date Name Laterality Status Provider Name and Address Organization Details Recorded Time 02/05/20 Date of Last Pap Smear completed FLY HARLEEN [facility] 06/24/2025 11:15:48 procedure on back completed EDDIE CASSIDY [facility] 12/27/2024 09:29:58 Imaging Results None [...] Organization Details Last Updated DateTime 170.18 cm 25.9 kg/m2 43392.8 4 g 98 % 72 /min 18 /min 98 [degF] 140/76 mm[Hg] TUNDE VELASCO [facility] 15:35:47 Social History Question Answer Notes LastModified by Organizat ion Details LastModified Time Tobacco Smoking Status Never Smoker EDDIE argueta [facility] 12/27/2024 09:32:58 Are You Blind [...] Vaccine Type Date Status Note Provider Nam maria r and Address Organization Details Recorded Time RSV, bivalent, protein subunit RSVpreF, diluent reconstituted, 0.5 mL, PF 10/10/202 5 completed Not Available [facility] 06/24/2025 12:09:16 Tdap 5 completed Not Available [facility] 06/24/2025 12:09:16 COVID-19, mRNA, LNP-S, PF, 30 mcg/0.3 mL dose 1 completed Not Available [facility] 08/12/2025 10:30:59 COVID-19, mRNA, LNP-S, PF, 30 mcg/0.3 mL dose 1 completed Not Available [facility] 08/12/2025 10:30:59 Influenza, split virus, quadrivalent, PF 3 completed Not Available [facility] 08/12/2025 10:30:59 Influenza, MDCK, trivalent, preservative 4 completed Not Available [facility] 08/12/2025 10:30:59 Past Encounters Encounter ID Performer Location Encounter Start Date Encounter Closed Date Diagnosis/Indication Diagnosis SNOMED-CT Code Diagnosis ICD10 Code Diagnosis IMO Codes Diagnosis Note [id number] Que Gaitan MD [facility] ([facility]) [address] [place], [place] [address] 07/07/2025 15:41:05 07/07/2025 16:39:59 Gestation period, 33 weeks 15483044 Z3A.33 2177243 [id number] Que Gaitan MD [facility]) [address] [place], [place] [address] 07/21/2025 09:52:20 07/21/2025 10:44:43 Primigravida 821342837 Z34.03 75036142 Gestation period, 35 weeks 28015640 Z3A.35 0797956 [id number] Que Gaitan MD [facility] ([facility]) [address] [place] [address] 5 07/29/2025 15:06:18 07/29/2025 16:01:08 Primigravida 074282301 Z34.03 42844315 Gestation period, 37 weeks 52049432 Z3A.37 1750749 Heartburn 24227900 O26.8 93 R12 96197021 Health Concerns Section Related Observation LastModified by Organization Detai ls LastModified Time None Recorded Concern Status LastModified by Organization Details LastModified Time None Recorded Payers Encounter Date Sequence Insurance Name Policy Number Policy [place] Covered Member ID [place] Member ID Guarantor Name 07/29/2025 1 [employer] [id number] Jimena Richards [id number] Jimena Richards Notes Date Note Type Note Provider Name and Address Organization Details Recorded Time 5 text/html jr ob routineReported by PatientHPIFor associated symptoms, patient reportsabdominal pain,cramping,contraction s (irr),nausea,emesis,edema (feet with prolonged standing),dizziness, andbreathlessnessbut reportsnormal movement,no bleeding,no vaginal discharge,no vaginal/vulvar itching or irritation,no dysuria,no frequency,no urgency,no hematuria,no fever,no constipation,no diarrhea/loose stool,no visual changes, andno headache.heartburn- improved,low back pain, bilateral hip pain, vaginal pressure, pelvic discomfortDenies any tobacco, nicotine, alcohol, or drug useROS as noted in the HPI Que Gaitan MD [address] [place] [address], [phone], [facility] 07/29/2025 16:07:49 OBGyn Episode Ob Episode Information Episode Created Date Number of Fetuses Patient Bloodtype Patient rh Status Prepregnancy Weight lbs Domestic Partner Domestic Partner Phone Father Name [employer]box Repairer Status 12/28/19 1 A Positive [facility] Fetus Data First Name Last Name Admitted to NICU Weight (g) Sex Living Outcome Pediatric Complications Fetus ID Race Codes Race Delivery Type [id number] Problems Problem Notes Epi consult 08/02/25 Problem Name Start Date End Date Resolution Snomed Code Not e Normal 04/03/2025 [id number] Candida Calculation Initial Candida Date Initial Exam [...] Weight in lbs Pre/Post Dialysis Refused Weight 144.185915871343 BP Diastolic BP Location Tested BP Systolic [...] Weight in lbs Pre/Post Dialysis Refused Weight 144.02742413524 BP Diastolic BP Location Tested BP Systolic [...] Weight in lbs Pre/Post Dialysis Refused Weight 144.819893295533 BP Diastolic BP Location Tested BP Systolic [...] Weight in lbs Pre/Post Dialysis Refused Weight 150.536059969211 BP Diastolic BP Location Tested BP Systolic [...] Weight in lbs Pre/Post Dialysis Refused Weight 152.886632144189 BP Diastolic BP Location Tested BP Systolic [...] Weight in lbs Pre/Post Dialysis Refused Weight 155.20326983042 BP Diastolic BP Location Tested BP Systolic [...] Weight in lbs Pre/Post Dialysis Refused Weight 156.898363081208 BP Diastolic BP Location Tested BP Systolic [...] Cervic Station 31 cm none none Negative [place] trace Type Weight in lbs Pre/Post Dialysis Refused Weight 154.777768411529 BP Diastolic BP Location Tested BP Systolic [...] Cervic Station 32 cm none none Negative [place] trace Type Weight in lbs Pre/Post Dialysis Refused Weight 155.82497989096 BP Diastolic BP Location Tested BP Systolic BP Type 84 132 sitting Fetus Heart Rate Present A 148 Fetus Movement A Yes Comments vaginal discharge/pressure, back pain, sob, pelvic pain, sob, dizziness, Flowsheet Date 07/21/2025 Kemp Score Blood Edema Fundus Height Fundus Units Glucose Ketones Leukocytes Nitrite Labor Signs Protein Cervic Dilation Cervic Effacement Cervic Station none trace Negative [place] trace Type Weight in lbs Pre/Post Dialysis Refused Weight 169.061965889163 BP Diastolic BP Location Tested BP Systolic [...] Weight in lbs Pre/Post Dialysis Refused Weight 165.884408961091 BP Diastolic BP Location Tested BP Systolic BP Type 76 140 sitting Fetus Heart Rate Present A 144 Present Fetus Movement A Yes Comments abdominal pain/cramping, swathi k,pelvic,hip pain, vaginal pressure,N/V, dizziness,edema in feet Flowsheet Date 08/02/2025 Kemp Score Blood Edema Fundus Height Fundus Units Glucose Ketones Leukocytes Nitrite Labor Signs Protein Cervic Dilation Cervic Effacement Cervic Station none none [place] 1+ Type Weight in lbs Pre/Post Dialysis Refused Weight 163.812786180387 BP Diastolic BP Location Tested BP Systolic BP Type 88 136 Fetus Heart Rate Present A 148 Present Fetus Movement A Yes Comments vaginal and pelvic pressure, swelling in feet, hip pain Flowsheet Date 08/12/2025 Kemp Score Blood Edema Fundus Height Fundus Units Glucose Ketones Leukocytes Nitrite Labor Signs Protein Cervic Dilation Cervic Effacement Cervic Station 38 cm none [place] neg 1cm 80% -3 Type Weight in lbs Pre/Post Dialysis Refused Weight 164.178931748489 BP Diastolic BP Location Tested BP Systolic [...] Estim ated Date of Delivery false Thalassemia (Jamaican, Trinidadian, Mediterranean, Or Background): MCV < 80 false Neural Tube Defect (Meningomyelocele, Spina Bifi da, Or Anencephaly) false Congenital Heart Defect false Down Syndrome false Jacob-Sachs (eg, Jain, Cajun, Icelandic-Polish) f alse Mira Disease false Sickle Cell [...]
--- OUTSIDE RECORDS SUMMARY | 2025-08-15 17:13 | XMS_ITS | Continuity of Care Document ---
Author Organization AZAM - Gabriel Saenz [facility] Musa, LCelena, [facility] ([facility]) Address [address] [place] [address] Assessment Encounter Date Assessment Date Assessment LastModified by Organization Details LastModified Time 07/07/2025 07/07/2025 nitrazine neg. No pooling. No fluid with cough [email or web address] Not available 07/07/2025 16:37:14 Plan of Treatment Reminders Order Date Submit [...] ETE color YELLOW yellow normal Not Available [facility] [address] [address] [place], [address], 02/08/2025 11:05:21 02/05/20 25 02/08/2025 URINA LYSIS , COMPL ETE appearance CLOUDY clear abnormal Not Available [facility] [address] [place], [address], 02/08/2025 11:05:21 02/05/20 25 02/08/2025 URINA LYSIS , COMPL ETE specific gravity 1.024 1.001- 1.035 normal Not Available [address], [address], 02/08/2025 11:05:21 02/05/20 25 02/08/2025 URINA LYSIS , COMPL ETE pH 6.5 5.0-8. 0 normal Not Available [address], [address], 02/08/2025 11:05:21 02/05/20 25 02/08/2025 URINA LYSIS , COMPL ETE glucose NEGATI VE negati ve normal Not Available [address], [address], 02/08/2025 11:05:21 02/05/20 25 02/08/2025 URINA LYSIS , COMPL ETE bilirubin NEGATI VE negati ve normal Not Available [address], [address], 02/08/2025 11:05:21 02/05/20 25 02/08/2025 URINA LYSIS , COMPL ETE ketones NEGATI VE negati ve normal Not Available [address], [address], 02/08/2025 11:05:21 02/05/20 25 02/08/2025 URINA LYSIS , COMPL ETE occult blood NEGATI VE negati ve normal Not Available [address], [address], 02/08/2025 11:05:21 02/05/20 25 02/08/2025 URINA LYSIS , COMPL ETE protein NEGATI VE negati ve normal Not Available [address], [address], 02/08/2025 11:05:21 02/05/20 25 02/08/2025 URINA LYSIS , COMPL ETE nitrite NEGATI VE negati ve normal Not Available [address], [address], 02/08/2025 11:05:21 02/05/20 25 02/08/2025 URINA LYSIS , COMPL ETE leukocyte esterase NEGATI VE negati ve normal Not Available [address], [address], 02/08/2025 11:05:21 02/05/20 25 02/08/2025 URINA LYSIS , COMPL ETE WBC 6-10 /hpf < or = 5 abnormal Not Available [address], [address], 02/08/2025 11:05:21 02/05/20 25 02/08/2025 URINA LYSIS , COMPL ETE RBC 0-2 /hpf < or = 2 normal Not Available [address], [address], 02/08/2025 11:05:21 02/05/20 25 02/08/2025 URINA LYSIS , COMPL ETE squamous epithelial cells 10-20 /hpf < or = 5 abnormal Not Available [address], [address], 02/08/2025 11:05:21 02/05/20 25 02/08/2025 URINA LYSIS , COMPL ETE bacteria MANY /hpf none seen abnormal Not Available [address], [address], 02/08/2025 11:05:21 02/05/20 25 02/08/2025 URINA LYSIS , COMPL ETE hyaline cast NONE SEEN /lpf none seen normal Not Available [address], [address], 02/08/2025 11:05:21 02/05/20 25 02/08/2025 URINA LYSIS , COMPL ETE note This urine was arash zed for the prese nce of WBC, RBC, bacte octavia, casts , and other forme d eleme nts. Only those eleme nts seen were repor ric. Not Available [address], [address], 02/08/2025 11:05:21 02/05/20 25 02/08/2025 CBC (INCL UDES DIFF/ PLT) white blood cell count 6.8 thous and/u L 3.8-10 .8 normal Not Available [address], [address], 02/08/2025 11:05:22 02/05/20 25 02/08/2025 CBC (INCL UDES DIFF/ PLT) red blood cell count 4.14 moriah on/uL 3.80-5 .10 normal Not Available [address], [address], 02/08/2025 11:05:22 02/05/20 25 02/08/2025 CBC (INCL UDES DIFF/ PLT) hemoglobin 12.8 g/dL 11.7-1 5.5 normal Not Available [address], [address], 02/08/2025 11:05:22 02/05/20 25 02/08/2025 CBC (INCL UDES DIFF/ PLT) hematocrit 39.4 % 35.0-4 5.0 normal Not Available [address], [address], 02/08/2025 11:05:22 02/05/20 25 02/08/2025 CBC (INCL UDES DIFF/ PLT) MCV 95.2 fL 80.0-1 00.0 normal Not Available [address], [address], 02/08/2025 11:05:22 02/05/20 25 02/08/2025 CBC (INCL UDES DIFF/ PLT) MCH 30.9 pg 27.0-3 3.0 normal Not Available [address], [address], 02/08/2025 11:05:22 02/05/20 25 02/08/2025 CBC (INCL UDES DIFF/ PLT) MCHC 32.5 g/dL 32.0-3 6.0 normal For adult s, a sligh t decre ase in the calcu lated MCHC value (in the range of 30 to 32 g/dL) is most likel y not clini rafy signi fican t; josefinaev er, it shoul d be inter prete d with cauti on in corre lat n with other red cell león eters and the patie nt's clini sara condi tion. Not Available [address], [address], 02/08/2025 11:05:22 02/05/20 25 02/08/2025 CBC (INCL UDES DIFF/ PLT) RDW 12.4 % 11.0-1 5.0 normal Not Available [address], [address], 02/08/2025 11:05:22 02/05/20 25 02/08/2025 CBC (INCL UDES DIFF/ PLT) platelet count 250 thous and/u L 140-40 0 normal Not Available [address], [address], 02/08/2025 11:05:22 02/05/20 25 02/08/2025 CBC (INCL UDES DIFF/ PLT) MPV 9.9 fL 7.5-12 .5 normal Not Available [address], [address], 02/08/2025 11:05:22 02/05/20 25 02/08/2025 CBC (INCL UDES DIFF/ PLT) absolute neutrophils 4372 cells /uL 1500-7 800 normal Not Available [facility] [address] [place], [address], 02/08/2025 11:05:22 02/05/20 25 02/08/2025 CBC (INCL UDES DIFF/ PLT) absolute lymphocytes 1795 cells /uL 850-39 00 normal Not Available [facility] [address], [address], 02/08/2025 11:05:22 02/05/20 25 02/08/2025 CBC (INCL UDES DIFF/ PLT) absolute monocytes 503 cells /uL 200-95 0 normal Not Available [facility] [address], [address], 02/08/2025 11:05:22 02/05/20 25 02/08/2025 CBC (INCL UDES DIFF/ PLT) absolute eosinophils 82 cells /uL 15-500 normal Not Available [facility] [address], [address], 02/08/2025 11:05:22 02/05/20 25 02/08/2025 CBC (INCL UDES DIFF/ PLT) absolute basophils 48 cells /uL 0-200 normal Not Available [facility] [address], [address], 02/08/2025 11:05:22 02/05/20 25 02/08/2025 CBC (INCL UDES DIFF/ PLT) neutrophils 64.3 % normal Not Available [facility] [address], [address], 02/08/2025 11:05:22 02/05/20 25 02/08/2025 CBC (INCL UDES DIFF/ PLT) lymphocytes 26.4 % normal Not Available [facility] [address], [address], 02/08/2025 11:05:22 02/05/20 25 02/08/2025 CBC (INCL UDES DIFF/ PLT) monocytes 7.4 % normal Not Available [facility] [address] [place], [address], 02/08/2025 11:05:22 02/05/20 25 02/08/2025 CBC (INCL UDES DIFF/ PLT) eosinophils 1.2 % normal Not Available [facility] [address], [address], 02/08/2025 11:05:22 02/05/20 25 02/08/2025 CBC (INCL UDES DIFF/ PLT) basophils 0.7 % normal Not Available [facility] [address], [address], 02/08/2025 11:05:22 02/05/20 25 02/08/2025 HEPAT ITIS B SURFA CE ANTIG EN W/REF L CONFI RM hepatitis B surface antigen NON-RE ACTIVE non-re active normal For addit ional infor hiwot girard, hugh e refer to http: //[facility] renuka n.que stdia gnost ics.c om/fa q/FAQ 202 (This link is being provi ded for infor matio nal/ educa nia l purpo ses only. ) Not Available [facility] [address], [address], 02/08/2025 11:05:23 02/05/20 25 02/08/2025 HEPAT ITIS [...] a test for HCV RNA (test code 95999 ) is sugge sted. For addit ional infor matio n pleas e refer to http: //[facility] catkarlos n.que stdia gnost ics.c om/fa q/FAQ 22v1 (This link is being provi ded for infor matio nal/ educa nia l purpo ses only. ) Not Available [facility] [address] [place], [address], 02/08/2025 11:05:24 02/05/20 25 02/08/2025 RUBEL LA [...] la virus . Not Available [facility] [address] [address], [place], [address], 02/08/2025 11:05:24 02/05/20 25 02/08/2025 HIV 1/2 [...] matio n pleas e refer to http: //[facility] renuka girard.que stdia gnost ics.c om/fa q/FAQ 106 (This link is being provi ded for infor hiwot humphrey/ educa nia l purpo ses only. ) The perfo rmanc e of this assay has not been clini rafy valid ated in patie nts less than 2 years old. Not Available [facility] [address] [place], [address], 02/08/2025 11:05:25 02/05/20 25 02/08/2025 RPR (DX) W/REF L TITER AND T. PALLI DUM AB, IA RPR (DX) w/refl titer and confirmatory testing NON-RE ACTIVE non-re active normal No labor atory evide nce of syphi lis. If recen t expos ure is suspe cted, submi t a new sampl e in 2-4 weeks . Not Available [facility] [address] [place], [address], 02/08/2025 11:05:27 02/05/20 25 02/08/2025 ANTIB RUDDY [...] alloi mmuni zed pregn amber. Not Available [facility] [address], [address], 02/08/2025 11:05:28 02/05/20 25 02/08/2025 ABO GROUP AND RH TYPE ABO group A Not Available [facility] [address], [address], 02/08/2025 11:05:28 02/05/20 25 02/08/2025 ABO GROUP AND RH TYPE Rh type RH(D) POSITI VE For addit ional infor hugh ngo e refer to http: //soniya Wooten gnost ics.c om/fa q/FAQ 111 (This link is being provi ded for infor hiwot humphrey/ kasey galindoo ses only. ) Not Available [facility] [address] [address] [address], [place], [address], 02/08/2025 11:05:28 02/05/20 25 02/08/2025 DRUG MONIT OR, PANEL 1, SCREE N, URINE amphetamines NEGATI VE NG/mL <500 See Note A See Note A Not Available [facility] [address] [address] [address], [place], [address], 02/08/2025 11:05:29 02/05/20 25 02/08/2025 DRUG MONIT OR, PANEL 1, SCREE N, URINE barbiturates NEGATI VE NG/mL <300 See Note A See Note A Not Available [facility] [address] [address] [address], [place], [address], 02/08/2025 11:05:29 02/05/20 25 02/08/2025 DRUG MONIT OR, PANEL 1, SCREE N, URINE benzodiazepi regina NEGATI VE NG/mL <100 See Note A See Note A Not Available [facility] [address] [address] [address], [place], [address], 02/08/2025 11:05:29 02/05/20 25 02/08/2025 DRUG MONIT OR, PANEL 1, SCREE N, URINE cocaine metabolite NEGATI VE NG/mL <150 See Note A See Note A Not Available [facility] [address] [address] [address], [place], [address], 02/08/2025 11:05:29 02/05/20 25 02/08/2025 DRUG MONIT OR, PANEL 1, SCREE N, URINE marijuana metabolite NEGATI VE NG/mL <20 See Note A See Note A Not Available [facility] [address] [address] [address], [place], [address], 02/08/2025 11:05:29 05/23/20 25 02/08/2025 DRUG MONIT OR, PANEL 1, SCREE N, URINE methadone metabolite NEGATI VE NG/mL <100 See Note A See Note A Not Available [address] [address] [address], [place], [address], 02/08/2025 11:05:29 02/05/20 25 02/08/2025 DRUG MONIT OR, PANEL 1, SCREE N, URINE opiates NEGATI VE NG/mL <100 See Note A See Note A Not Available [address] [address] [address], [place], [address], 02/08/2025 11:05:02/05/2002/08/2025 DRUG MONIT OR, PANEL 1, SCREE N, URINE oxycodone NEGATI VE NG/mL <100 See Note A See Note A Not Available [address] [address] [address], [place], [address], 02/08/2025 11:05:29 02/05/20 25 02/08/2025 DRUG MONIT OR, PANEL 1, SCREE N, URINE phencyclidin e NEGATI VE NG/mL <25 See Note A See Note A Not Available [address] [address] [address], [place], [address], 02/08/2025 11:05:29 02/05/20 25 02/08/2025 DRUG MONIT OR, PANEL 1, SCREE N, URINE creatinine 208.5 mg/dL > or = 20.0 Not Available [address] [address] [address], [place], [address], 02/08/2025 11:05:29 02/05/2002/08/2025 DRUG MONIT OR, PANEL 1, SCREE N, URINE pH 6.6 4.5-9. 0 Not Available [address] [address] [address], [place], [address], 02/08/2025 11:05:29 02/05/2002/08/2025 DRUG MONIT OR, PANEL 1, SCREE N, URINE oxidant NEGATI VE mcg/m L <200 Not Available [address] [address] [place], [address], 02/08/2025 11:05:29 02/05/20 25 02/08/2025 DRUG MONIT [...] are presu mptiv e; based only on barbaramaria r harper [place] ds, and they have not been confi rmed by a defin itive metho d. [facility] ders needi ng Inter preta tion vianey tance , pleas e conta ct us at 1.877 .40.R XTOX (1.87 7.407 .9869 ) M-F, 8am to 10pm EST Not Available [address] [address] [place], [address], 02/08/2025 11:05:30 02/05/20 25 02/08/2025 CULTU RE, URINE , ROUTI NE culture, urine, routine SEE NOTE CULTU RE, URINE , ROUTI NE Micro Numbe r: [id number] Test Statu s: Final Speci men Sourc e: Urine Speci men Quali ty: Adequ ate Resul t: No Growt h Not Available [facility] [address] [address] [address], [place], [address], 02/08/2025 11:05:31 02/05/20 25 02/10/2025 THINP REP TIS PAP (REFL ) HPV MRNA E6/E7 clinical information: normal Pregn ant Not Available [facility] [address] [address] [place], [address], 02/10/2025 16:01:40 02/05/20 25 02/10/2025 THINP REP TIS PAP (REFL ) HPV MRNA E6/E7 LMP: normal NA Not Available [address], [address], 02/10/2025 16:01:40 02/05/20 25 02/10/2025 THINP REP TIS PAP (REFL ) HPV MRNA E6/E7 prev. Pap: normal NA Not Available [address], [address], 02/10/2025 16:01:40 02/05/20 25 02/10/2025 THINP REP TIS PAP (REFL ) HPV MRNA E6/E7 prev. BX: normal NA Not Available [address], [address], 02/10/2025 16:01:40 02/05/20 25 02/10/2025 THINP REP TIS PAP (REFL ) HPV MRNA E6/E7 source: normal Cervi x, Endoc ervix Not Available [address], [address], 02/10/2025 16:01:40 02/05/2002/10/2025 THINP REP TIS PAP (REFL ) HPV MRNA E6/E7 statement of adequacy: normal Satis facto ry for evalu ation . Endoc ervic al/tr ansfo rmati on zone compo nent absen t. Age and/o r menst rual statu s not provi ded Not Available [address], [address], 02/10/2025 16:01:40 02/05/20 25 02/10/2025 THINP REP TIS PAP (REFL ) HPV MRNA E6/E7 interpretati on/result: normal Cytol ogy Resul ts: Negat seven for intra epith elial lesio n or malig sofi . Not Available [address] [place], [address], 02/10/2025 16:01:40 02/05/20 25 02/10/2025 THINP REP TIS PAP (REFL ) HPV MRNA E6/E7 comment: normal This Pap test has been evalu ated with nida syed techn ology . Not Available [address] [address] [place], [address], 02/10/2025 16:01:40 02/05/20 25 02/10/2025 THINP REP TIS PAP (REFL ) HPV MRNA E6/E7 cytotechnolo gist: normal JAF, CT( CP) CT Scree harper Locat ion: [address] [address] [place] [address] Not Available [address] [address] [place], [address], 02/10/2025 16:01:40 02/05/20 25 02/10/2025 THINP REP [...] clini sara infor matio n. Not Available [address] [address] [place], [address], 02/10/2025 16:01:40 02/05/20 25 02/04/2025 CT + NG + TV, DNA, urine /swab Chlamydia negati ve Not Available [facility] ([facility]) [address] [place] [address], [address], 02/03/2025 17:49:54 02/05/20 25 02/04/2025 CT + NG + TV, DNA, urine /swab Gonorrhea negati ve Not Available [facility] ([facility]) [address] [place], [address], 02/03/2025 17:49:54 02/05/2002/04/2025 CT + NG + TV, DNA, urine /swab Trichomonas negati ve Not Available [facility] ([facility]) [address] [place], [address], 02/03/2025 17:49:54 05/27/2005/27/2025 CBC WBC 7.5 x10 4.0-10 .5 Not Available [facility] [address] [facility] [address], [place], [address], 05/27/2025 13:18:09 05/27/2005/27/2025 CBC RBC 3.63 x10 3.50-5 .50 Not Available [facility] [address] [facility], [place], [address], 05/27/2025 13:18:09 05/27/2005/27/2025 CBC HGB 11.3 g/dL 12.0-1 6.0 low Not Available [facility] [address] [facility], [place], [address], 05/27/2025 13:18:09 05/27/2005/27/2025 CBC HCT 34.6 % 37.0-4 7.0 low Not Available [facility] [address] [facility] Rub[facility]ne [facility], [place], [address], 05/27/2025 13:18:09 05/27/2005/27/2025 CBC MCV 95.4 fL 80.0-9 9.9 Not Available [facility] [address] [facility] Juliana [facility], [place], [address], 05/27/2025 13:18:05/27/2005/27/2025 CBC MCH 31.1 pg 27.0-3 2.0 Not Available [facility] [address] [facility], [place], [address], 05/27/2025 13:18:05/27/2005/27/2025 CBC MCHC 32.7 g/dL 32.0-3 6.0 Not Available [facility] [address] [facility], [place], [address], 05/27/2025 13:18:05/27/2005/27/2025 CBC RDW 12.7 % 11.5-1 4.5 Not Available [facility] [address] [facility], [place], [address], 05/27/2025 13:18:05/27/2005/27/2025 CBC plt 232.5 x10 140.0- 451.0 Not Available [facility] [address] [facility], [place], [address], 05/27/2025 13:18:05/27/2005/27/2025 CBC lymphocytes % 19.6 % 20.0-5 0.0 low Not Available [facility] [address] [facility], [place], [address], 05/27/2025 13:18:05/27/2005/27/2025 CBC granulcytes % 73.2 % 30.0-7 0.0 high Not Available [facility] [address] [facility], [place], [address], 05/27/2025 13:18:05/27/2005/27/2025 CBC monocytes % 6.3 % 2.0-16 .0 Not Available [facility] [address] [facility], [place], [address], 05/27/2025 13:18:09 05/27/20 25 05/27/2025 CBC granulcytes# 5.5 x10 Not Jennifer ilable [facility] [address] [facility], [place], [address], 05/27/2025 13:18:09 05/27/20 25 05/27/2025 CBC lymphocytes # 1.5 x10 Not Available [facility] [address] [address], [place], [address], 05/27/2025 13:18:09 05/27/20 25 05/27/2025 CBC monocytes # 0.5 x10 Not Avai lable [facility] [address] [address], [place], [address], 05/27/2025 13:18:09 05/27/20 25 05/27/2025 GLUCO SE SCREE N glucose screen 108.0 mg/dL Not Available [facility] [address], [address], 05/27/2025 14:42:22 01/27/20 25 01/13/2025 US, obste tric, 1st trime ster No observ ation record ed. [id number] [facility] ([facility]) [address] [place], [address], 01/27/2025 09:10:51 04/05/20 25 04/04/2025 US, obste tric, 2nd trime ster No observ ation record ed. [facility] [address] [place], [address], 04/06/2025 13:07:14 Result Notes None recorded. Problems Name Problem SNOMED Code Status Onset Date Resolution Date Notes Provider Name and Address Organization Details Recorded Time History of musculoske letal disease 699533336 Active 05/23/ 2025 scoliosis, chiari malformati on [facility]CJenniffer 10:52:08 Normal 96035189 Active 2024 EDDIE argueta, [facility], L.L.CJenniffer 18:14:25 Heartburn 62921563 Active 2024 Que Gaitan MD [address] [place] [address], [phone], [facility], L.L.CJenniffer 16:07:03 Problem Notes None recorded. Procedures Surgical History Date Name Laterality Status Provider Name and Address Organization Details Recorded Time 02/05/20 Date of Last Pap Smear completed [facility], L.L.CJenniffer 06/24/2025 11:15:48 procedure on back completed EDDIE CASSIDY [facility], L.LJennifferCJenniffer 12/27/2024 09:29:58 Imaging Results None recorded. Procedure [...] Organization Details Last Updated DateTime 170.18 cm 24.3 kg/m2 18944.5 2 g 98 % 84 /min 18 /min 98.4 [degF] 132/84 mm[Hg] TUNDE MICHELLE [facility] 16:14:02 Social History Question Answer Notes LastModified by Organizat ion Details LastModified Time Tobacco Smoking Status Never Smoker EDDIE argueta [facility] 12/27/2024 09:32:58 Are You Blind [...] 0.5 mL, PF 5 completed Not Available [facility] 06/24/2025 12:09:16 Tdap 5 completed Not Available [facility] 06/24/2025 12:09:16 COVID-19, mRNA, LNP-S, PF, 30 mcg/0.3 mL dose 1 completed Not Available [facility] 08/12/2025 10:30:59 COVID-19, mRNA, LNP-S, PF, 30 mcg/0.3 mL dose 1 completed Not Available [facility] 08/12/2025 10:30:59 Influenza, split virus, quadrivalent, PF 3 completed Not Available [facility] 08/12/2025 10:30:59 Influenza, MDCK, trivalent, preservative 4 completed Not Available [facility] 08/12/2025 10:30:59 Past Encounters Encounter ID Performer Location Encounter Start Date Encounter Closed Date Diagnosis/Indication Diagnosis SNOMED-CT Code Diagnosis ICD10 Code Diagnosis IMO Codes Diagnosis Note [id number] Que Gaitan MD [facility] ([facility]) [address] [place] [phone] 06/10/2025 14:48:16 06/10/2025 15:32:58 Normal 73832860 Z34.03 3510681 Gestation period, 30 weeks 78209166 Z3A.30 [id number] Que Gaitan MD [facility]) [address] [place] [phone] 06/24/2025 11:00:47 06/24/2025 12:00:11 Primigravida 816362643 Z34.03 51407757 Gestation period, 32 weeks 7049253 Z3A.32 [id number] Que Gaitan MD [facility]) [address] [place] [phone] 06/21/2025 11:18:45 06/23/2025 04:01:12 [id number] Que Gaitan MD [facility]) [address] [place] [phone] 07/07/2025 15:41:05 07/07/2025 16:39:59 Gestation period, 33 weeks 57864444 Z3A.33 9082565 Health Concerns Section Related Observation LastModified by Organization Detai ls LastModified Time None Recorded Concern Status LastModified by Organization Details LastModified Time None Recorded Payers Encounter Date Sequence Insurance Name Policy Number Policy [place] Covered Member ID [place] Member ID Guarantor Name 07/07/2025 1 AGUEDA (PPO) [id number] Jimena Richards [id number] Jimena Richards Notes Date Note Type Note Provider Name and Address Organization Details Recorded Time 5 text/html jr ob routineReported by PatientHPIFor associated symptoms, patient reportscontractions (irr),vaginal discharge,nausea,emesis,e hill (feet with prolonged standing),dizziness, andbreathlessnessbut reportsnormal movement,no bleeding,no vaginal/vulvar itching or irritation,no dysuria,no frequency,no urgency,no hematuria,no fever,no constipation,no diarrhea/loose stool,no visual changes, andno headache.heartburn- improved,low back pain, bilateral hip pain, vaginal pressure, pelvic discomfortDenies any tobacco, nicotine, alcohol, or drug useROS as noted in the HPI Patient is having allot of vaginal pressure and leaking pee. Pt states her bladder don't seem to be full and she is still trickling out. Que Gaitan MD [address] [place] [address], [phone], [facility] 07/07/2025 16:37:22 OBGyn Episode Ob Episode Information Episode Created Date Number of Fetuses Patient Bloodtype Patient rh Status Prepregnancy Weight lbs Domestic Partner Domestic Partner Phone Father Name Veterinary Surgery Technologist Status 12/28/19 25 1 A Positive Davy OPEN Fetus Data First Name Last Name Admitted to NICU Weight (g) Sex Living Outcome Pediatric Complications Fetus ID Race Codes Race Delivery Type [id number] Problems Problem Notes Epi consult 08/02/25 Problem Name Start Date End Date Resolution Snomed Code Not e Normal 04/03/2025 [id number] Candida Calculation Initial Candida Date Initial Exam [...] Days Gestation 0 01/25/2025 08/19/20 25 0 Pre-garriosn Flowsheet Flowsheet Date 12/27/2024 Kemp Score Blood Edema Fundus Height Fundus Units Glucose Ketones Leukocytes Nitrite Labor Signs Protein Cervic Dilation Cervic Effacement Cervic Station Type Weight in lbs Pre/Post Dialysis Refused Weight 144.020538922729 BP Diastolic BP Location Tested BP Systolic [...] Weight in lbs Pre/Post Dialysis Refused Weight 144.93009317125 BP Diastolic BP Location Tested BP Systolic [...] Weight in lbs Pre/Post Dialysis Refused Weight 144.261177489166 BP Diastolic BP Location Tested BP Systolic [...] Weight in lbs Pre/Post Dialysis Refused Weight 150.575675264630 BP Diastolic BP Location Tested BP Systolic [...] Weight in lbs Pre/Post Dialysis Refused Weight 152.874965787483 BP Diastolic BP Location Tested BP Systolic [...] Weight in lbs Pre/Post Dialysis Refused Weight 155.80720472623 BP Diastolic BP Location Tested BP Systolic [...] Weight in lbs Pre/Post Dialysis Refused Weight 156.079669088670 BP Diastolic BP Location Tested BP Systolic [...] Weight in lbs Pre/Post Dialysis Refused Weight 154.670144484744 BP Diastolic BP Location Tested BP Systolic [...] Weight in lbs Pre/Post Dialysis Refused Weight 155.77102857920 BP Diastolic BP Location Tested BP Systolic BP Type 84 132 sitting Fetus Heart Rate Present A 148 Fetus Movement A Yes Comments vaginal discharge/pressure, back pain, sob, pelvic pain, sob, dizziness, Flowsheet Date 07/21/2025 Kemp Score Blood Edema Fundus Height Fundus Units Glucose Ketones Leukocytes Nitrite Labor Signs Protein Cervic Dilation Cervic Effacement Cervic Station none trace Negative [place] trace Type Weight in lbs Pre/Post Dialysis Refused Weight 169.980600500435 BP Diastolic BP Location Tested BP Systolic [...] Weight in lbs Pre/Post Dialysis Refused Weight 165.742155731519 BP Diastolic BP Location Tested BP Systolic BP Type 76 140 sitting Fetus Heart Rate Present A 144 Present Fetus Movement A Yes Comments abdominal pain/cramping, swathi k,pelvic,hip pain, vaginal pressure,N/V, dizziness,edema in feet Flowsheet Date 08/02/2025 Kemp Score Blood Edema Fundus Height Fundus Units Glucose Ketones Leukocytes Nitrite Labor Signs Protein Cervic Dilation Cervic Effacement Cervic Station none none [place] 1+ Type Weight in lbs Pre/Post Dialysis Refused Weight 163.172025430567 BP Diastolic BP Location Tested BP Systolic BP Type 88 136 Fetus Heart Rate Present A 148 Present Fetus Movement A Yes Comments vaginal and pelvic pressure, swelling in feet, hip pain Flowsheet Date 08/12/2025 Kemp Score Blood Edema Fundus Height Fundus Units Glucose Ketones Leukocytes Nitrite Labor Signs Protein Cervic Dilation Cervic Effacement Cervic Station 38 cm none [place] neg 1cm 80% -3 Type Weight in lbs Pre/Post Dialysis Refused Weight 164.975111397474 BP Diastolic BP Location Tested BP Systolic [...] Estim ated Date of Delivery false Thalassemia (Pashto, Hebrew, Mediterranean, Or Background): MCV < 80 false Neural Tube Defect (Meningomyelocele, Spina Bifi da, Or Anencephaly) false Congenital Heart Defect false Down Syndrome false Jacob-Sachs (eg, Latter Day, Cajun, Macedonian-Dillon) f alse [place]ira Disease false Sickle Cell Disease Or Trait () false Hemophilia Or Other Blood Disorders false Muscular Dystrophy false Cystic Fibrosis false Dyer's Chorea false Intellectual Disability/Autism false If Yes, [...]
--- OUTSIDE RECORDS SUMMARY | 2025-08-15 17:13 | XMS_ITS | Continuity of Care Document ---
Author Organization [facility] Gabriel Saenz [facility], LCelena, [facility] ([facility]) Address [address] [place] [address] Assessment No assessment recorded. Plan of Treatment [...] ETE color YELLOW yellow normal Not Available [employer] [address] [place], [address], 02/08/2025 11:05:21 02/05/20 25 02/08/2025 URINA LYSIS , COMPL ETE appearance CLOUDY clear abnormal Not Available [email or web address] [address] [place], [address], 02/08/2025 11:05:21 02/05/2002/08/2025 URINA LYSIS , COMPL ETE specific gravity 1.024 1.001- 1.035 normal Not Available [email or web address] [address] [place], [address], 02/08/2025 11:05:21 02/05/20 25 02/08/2025 URINA LYSIS , COMPL ETE pH 6.5 5.0-8. 0 normal Not Available [address], [address], 02/08/2025 11:05:21 02/05/20 25 02/08/2025 URINA LYSIS , COMPL ETE glucose NEGATI VE negati ve normal Not Available [address], [address], 02/08/2025 11:05:21 02/05/20 25 02/08/2025 URINA LYSIS , COMPL ETE bilirubin NEGATI VE negati ve normal Not Available [address], [address], 02/08/2025 11:05:21 02/05/20 25 02/08/2025 URINA LYSIS , COMPL ETE ketones NEGATI VE negati ve normal Not Available [address], [address], 02/08/2025 11:05:21 02/05/20 25 02/08/2025 URINA LYSIS , COMPL ETE occult blood NEGATI VE negati ve normal Not Available [facility] [address], [address], 02/08/2025 11:05:21 02/05/20 25 02/08/2025 URINA LYSIS , COMPL ETE protein NEGATI VE negati ve normal Not Available [facility] [address], [address], 02/08/2025 11:05:21 02/05/20 25 02/08/2025 URINA LYSIS , COMPL ETE nitrite NEGATI VE negati ve normal Not Available [facility] [address], [address], 02/08/2025 11:05:21 02/05/20 25 02/08/2025 URINA LYSIS , COMPL ETE leukocyte esterase NEGATI VE negati ve normal Not Available [address], [address], 02/08/2025 11:05:21 02/05/20 25 02/08/2025 URINA LYSIS , COMPL ETE WBC 6-10 /hpf < or = 5 abnormal Not Available [address], [address], 02/08/2025 11:05:21 02/05/20 25 02/08/2025 URINA LYSIS , COMPL ETE RBC 0-2 /hpf < or = 2 normal Not Available [address], [address], 02/08/2025 11:05:21 02/05/20 25 02/08/2025 URINA LYSIS , COMPL ETE squamous epithelial cells 10-20 /hpf < or = 5 abnormal Not Available [address], [address], 02/08/2025 11:05:21 02/05/20 25 02/08/2025 URINA LYSIS , COMPL ETE bacteria MANY /hpf none seen abnormal Not Available [address], [address], 02/08/2025 11:05:21 02/05/20 25 02/08/2025 URINA LYSIS , COMPL ETE hyaline cast NONE SEEN /lpf none seen normal Not Available [address], [address], 02/08/2025 11:05:21 02/05/20 25 02/08/2025 URINA LYSIS , COMPL ETE note This urine was arash zed for the prese nce of WBC, RBC, bacte octavia, casts , and other forme d eleme nts. Only those eleme nts seen were repor ric. Not Available [address], [address], 02/08/2025 11:05:21 02/05/20 25 02/08/2025 CBC (INCL UDES DIFF/ PLT) white blood cell count 6.8 thous and/u L 3.8-10 .8 normal Not Available [address], [address], 02/08/2025 11:05:22 02/05/20 25 02/08/2025 CBC (INCL UDES DIFF/ PLT) red blood cell count 4.14 moriah on/uL 3.80-5 .10 normal Not Available [address], [address], 02/08/2025 11:05:22 02/05/20 25 02/08/2025 CBC (INCL UDES DIFF/ PLT) hemoglobin 12.8 g/dL 11.7-1 5.5 normal Not Available [address], [address], 02/08/2025 11:05:22 02/05/20 25 02/08/2025 CBC (INCL UDES DIFF/ PLT) hematocrit 39.4 % 35.0-4 5.0 normal Not Available [address], [address], 02/08/2025 11:05:22 02/05/20 25 02/08/2025 CBC (INCL UDES DIFF/ PLT) MCV 95.2 fL 80.0-1 00.0 normal Not Available [address], [address], 02/08/2025 11:05:22 02/05/20 25 02/08/2025 CBC (INCL UDES DIFF/ PLT) MCH 30.9 pg 27.0-3 3.0 normal Not Available [employer] [address], [address], 02/08/2025 11:05:22 02/05/20 25 02/08/2025 CBC (INCL UDES DIFF/ PLT) MCHC 32.5 g/dL 32.0-3 6.0 normal For adult s, a sligh t decre ase in the calcu lated MCHC value (in the range of 30 to 32 g/dL) is most likel y not clini rafy signi fican t; carina er, it shoul d be inter prete d with cauti on in [facility] n with other red cell león eters and the patie nt's clini sara condi tion. Not Available [facility] [address], [address], 02/08/2025 11:05:22 02/05/20 25 02/08/2025 CBC (INCL UDES DIFF/ PLT) RDW 12.4 % 11.0-1 5.0 normal Not Available [facility] [address], [address], 02/08/2025 11:05:22 02/05/20 25 02/08/2025 CBC (INCL UDES DIFF/ PLT) platelet count 250 thous and/u L 140-40 0 normal Not Available [facility] [address], [address], 02/08/2025 11:05:22 02/05/20 25 02/08/2025 CBC (INCL UDES DIFF/ PLT) MPV 9.9 fL 7.5-12 .5 normal Not Available [address], [address], 02/08/2025 11:05:22 02/05/20 25 02/08/2025 CBC (INCL UDES DIFF/ PLT) absolute neutrophils 4372 cells /uL 1500-7 800 normal Not Available [address], [address], 02/08/2025 11:05:22 02/05/20 25 02/08/2025 CBC (INCL UDES DIFF/ PLT) absolute lymphocytes 1795 cells /uL 850-39 00 normal Not Available [address], [address], 02/08/2025 11:05:22 02/05/20 25 02/08/2025 CBC (INCL UDES DIFF/ PLT) absolute monocytes 503 cells /uL 200-95 0 normal Not Available [address], [address], 02/08/2025 11:05:22 02/05/20 25 02/08/2025 CBC (INCL UDES DIFF/ PLT) absolute eosinophils 82 cells /uL 15-500 normal Not Available [address], [address], 02/08/2025 11:05:22 02/05/20 25 02/08/2025 CBC (INCL UDES DIFF/ PLT) absolute basophils 48 cells /uL 0-200 normal Not Available [address], [address], 02/08/2025 11:05:22 02/05/20 25 02/08/2025 CBC (INCL UDES DIFF/ PLT) neutrophils 64.3 % normal Not Available [address], [address], 02/08/2025 11:05:22 02/05/20 25 02/08/2025 CBC (INCL UDES DIFF/ PLT) lymphocytes 26.4 % normal Not Available [address], [address], 02/08/2025 11:05:22 02/05/20 25 02/08/2025 CBC (INCL UDES DIFF/ PLT) monocytes 7.4 % normal Not Available [address], [address], 02/08/2025 11:05:22 02/05/20 25 02/08/2025 CBC (INCL UDES DIFF/ PLT) eosinophils 1.2 % normal Not Available [facility] [address] [address] [place], [address], 02/08/2025 11:05:22 02/05/20 25 02/08/2025 CBC (INCL UDES DIFF/ PLT) basophils 0.7 % normal Not Available [facility] [address] [place], [address], 02/08/2025 11:05:22 02/05/20 25 02/08/2025 HEPAT ITIS B SURFA CE ANTIG EN W/REF L CONFI RM hepatitis B surface antigen NON-RE ACTIVE non-re active normal For addit ional infor hiwot girard, hugh e refer to http: //[facility] girard.mini stdia gnost ics.c om/fa q/FAQ 202 (This link is being provi ded for infor matio nal/ educa nia l purpo ses only. ) Not Available [facility] [address], [address], 02/08/2025 11:05:23 02/05/20 25 02/08/2025 HEPAT ITIS [...] a test for HCV RNA (test code 05565 ) is sugge sted. For addit ional infor matkarlos n pleas e refer to http: //[facility] danielle stdia gnost ics.c om/fa q/FAQ 22v1 (This link is being provi ded for infor matio nal/ educa nia l purpo ses only. ) Not Available [facility] [address] [address] [place], [address], 02/08/2025 11:05:24 02/05/2002/08/2025 RUBEL LA AB (IGG) [...] with rubel la virus . Not Available [email or web address] [facility] [address], [place], [address], 02/08/2025 11:05:24 02/05/2002/08/2025 HIV 1/2 ANTIG EN/AN [...] whom it perta ins, or as other bradsahw permi tted by law. A gener al [...] less than 2 years old. Not Available [employer] [address] [place], [address], 02/08/2025 11:05:25 02/05/20 25 02/08/2025 RPR (DX) W/REF L TITER AND T. PALLI DUM AB, IA RPR (DX) w/refl titer and confirmatory testing NON-RE ACTIVE non-re active normal No labor atory evide nce of syphi lis. If recen t expos ure is suspe cted, submi t a new sampl e in 2-4 weeks . Not Available [facility] [address] [place], [address], 02/08/2025 11:05:27 02/05/20 25 02/08/2025 ANTIB RUDDY [...] alloi mmuni zed pregn amber. Not Available [address], [address], 02/08/2025 11:05:28 02/05/20 25 02/08/2025 ABO GROUP AND RH TYPE ABO group A Not Available [address] [place], [address], 02/08/2025 11:05:28 02/05/2002/08/2025 ABO GROUP AND RH TYPE Rh type RH(D) POSITI VE For addit ional hugh kearns e refer to http: //soniya uqintanaQue stDia gnost ics.c om/fa q/FAQ 111 (This link is being provi ded for infor hiwot humphrey/ educa nia l purpo ses only. ) Not Available [address] [address], [place], [address], 02/08/2025 11:05:28 02/05/20 25 02/08/2025 DRUG MONIT OR, PANEL 1, SCREE N, URINE amphetamines NEGATI VE NG/mL <500 See Note A See Note A Not Available [address] [address], [place], [address], 02/08/2025 11:05:29 02/05/20 25 02/08/2025 DRUG MONIT OR, PANEL 1, SCREE N, URINE barbiturates NEGATI VE NG/mL <300 See Note A See Note A Not Available [employer] [address] [address] [address], [place], [address], 02/08/2025 11:05:29 02/05/20 25 02/08/2025 DRUG MONIT OR, PANEL 1, SCREE N, URINE benzodiazepi regina NEGATI VE NG/mL <100 See Note A See Note A Not Available [employer] [address] [address] [address], [place], [address], 02/08/2025 11:05:29 02/05/20 25 02/08/2025 DRUG MONIT OR, PANEL 1, SCREE N, URINE cocaine metabolite NEGATI VE NG/mL <150 See Note A See Note A Not Available [employer] [address] [address] [address], [place], [address], 02/08/2025 11:05:29 02/05/20 25 02/08/2025 DRUG MONIT OR, PANEL 1, SCREE N, URINE marijuana metabolite NEGATI VE NG/mL <20 See Note A See Note A Not Available [employer] [address] [address] [address], [place], [address], 02/08/2025 11:05:29 02/05/20 25 02/08/2025 DRUG MONIT OR, PANEL 1, SCREE N, URINE methadone metabolite NEGATI VE NG/mL <100 See Note A See Note A Not Available [address] [address] [address], [place], [address], 02/08/2025 11:05:29 02/05/20 25 02/08/2025 DRUG MONIT OR, PANEL 1, SCREE N, URINE opiates NEGATI VE NG/mL <100 See Note A See Note A Not Available [address] [address] [address], [place], [address], 02/08/2025 11:05:29 02/05/20 25 02/08/2025 DRUG MONIT OR, PANEL 1, SCREE N, URINE oxycodone NEGATI VE NG/mL <100 See Note A See Note A Not Available [address] [address] [address], [place], [address], 02/08/2025 11:05:29 02/05/20 25 02/08/2025 DRUG MONIT OR, PANEL 1, SCREE N, URINE phencyclidin e NEGATI VE NG/mL <25 See Note A See Note A Not Available [address] [address] [address], [place], [address], 02/08/2025 11:05:29 02/05/2002/08/2025 DRUG MONIT OR, PANEL 1, SCREE N, URINE creatinine 208.5 mg/dL > or = 20.0 Not Available [address] [address] [address], [place], [address], 02/08/2025 11:05:29 02/05/2002/08/2025 DRUG MONIT OR, PANEL 1, SCREE N, URINE pH 6.6 4.5-9. 0 Not Available [address] [address] [address], [place], [address], 02/08/2025 11:05:29 02/05/2002/08/2025 DRUG MONIT OR, PANEL 1, SCREE N, URINE oxidant NEGATI VE mcg/m L <200 Not Available [address] [address] [address], [place], [address], 02/08/2025 11:05:29 02/05/20 25 02/08/2025 DRUG MONIT [...] M-F, 8am to 10pm EST Not Available [email or web address] [address] [address] [place], [address], 02/08/2025 11:05:30 02/05/20 25 02/08/2025 CULTU RE, URINE , ROUTI NE culture, urine, routine SEE NOTE CULTU RE, URINE , ROUTI NE Micro Numbe r: [id number] Test Statu s: Final Speci men Sourc e: Urine Speci men Quali ty: Adequ ate Resul t: No Growt h Not Available [employer] [address] [address] [place], [address], 02/08/2025 11:05:31 02/05/20 25 02/10/2025 THINP REP TIS PAP (REFL ) HPV MRNA E6/E7 clinical information: normal Pregn ant Not Available [facility] [address] [address] [place], [address], 02/10/2025 16:01:40 02/05/20 25 02/10/2025 THINP REP TIS PAP (REFL ) HPV MRNA E6/E7 LMP: normal NA Not Available [employer] [address] [address] [place], [address], 02/10/2025 16:01:40 02/05/20 25 02/10/2025 THINP REP TIS PAP (REFL ) HPV MRNA E6/E7 prev. Pap: normal NA Not Available [address] [place], [address], 02/10/2025 16:01:40 02/05/20 25 02/10/2025 THINP REP TIS PAP (REFL ) HPV MRNA E6/E7 prev. BX: normal NA Not Available [address] [place], [address], 02/10/2025 16:01:40 02/05/2002/10/2025 THINP REP TIS PAP (REFL ) HPV MRNA E6/E7 source: normal Cervi x, Endoc ervix Not Available [address], [address], 02/10/2025 16:01:40 02/05/20 25 02/10/2025 THINP REP TIS PAP (REFL ) HPV MRNA E6/E7 statement of adequacy: normal Satis facto ry for evalu ation . Endoc ervic al/tr ansfo rmati on zone compo nent absen t. Age and/o r menst rual statu s not provi ded Not Available [address], [address], 02/10/2025 16:01:40 02/05/20 25 02/10/2025 THINP REP TIS PAP (REFL ) HPV MRNA E6/E7 interpretati on/result: normal Cytol ogy Resul ts: Negat seven for intra epith elial lesio n or mallizy farah . Not Available [address], [address], 02/10/2025 16:01:40 02/05/20 25 02/10/2025 THINP REP TIS PAP (REFL ) HPV MRNA E6/E7 comment: normal This Pap test has been evalu ated with compu ter vianey ric techn ology . Not Available [facility] [address] [address] [place], [address], 02/10/2025 16:01:40 02/05/20 25 02/10/2025 THINP REP TIS PAP (REFL ) HPV MRNA E6/E7 cytotechnolo gist: normal JAF, CT( CP) CT Scree harper Locat ion: [address] [address] [place] [address] Not Available [facility] [address] [address] [place], [address], 02/10/2025 16:01:40 02/05/20 25 02/10/2025 THINP REP [...] clini sara infor matio n. Not Available [address] [address] [place], [address], 02/10/2025 16:01:40 02/05/20 25 02/04/2025 CT + NG + TV, DNA, urine /swab Chlamydia negati ve Not Available [facility] [address] [place], [address], 02/03/2025 17:49:54 02/05/20 25 02/04/2025 CT + NG + TV, DNA, urine /swab Gonorrhea negati ve Not Available [facility] [address] [place], [address], 02/03/2025 17:49:54 02/05/2002/04/2025 CT + NG + TV, DNA, urine /swab Trichomonas negati ve Not Available [facility] [address] [place], [address], 02/03/2025 17:49:54 05/27/2005/27/2025 CBC WBC 7.5 x10 4.0-10 .5 Not Available [facility] [address] [address], [place], [address], 05/27/2025 13:18:09 05/27/2005/27/2025 CBC RBC 3.63 x10 3.50-5 .50 Not Available [facility] [address] [facility] [address], [place], [address], 05/27/2025 13:18:09 05/27/2005/27/2025 CBC HGB 11.3 g/dL 12.0-1 6.0 low Not Available [facility] [address] [address], [place], [address], 05/27/2025 13:18:09 05/27/2005/27/2025 CBC HCT 34.6 % 37.0-4 7.0 low Not Available [facility] [address] [facility] [address], [place], [address], 05/27/2025 13:18:09 05/27/2005/27/2025 CBC MCV 95.4 fL 80.0-9 9.9 Not Available [facility] [address] [facility], [place], [address], 05/27/2025 13:18:09 05/27/2005/27/2025 CBC MCH 31.1 pg 27.0-3 2.0 Not Available [facility] [address] [facility], [place], [address], 05/27/2025 13:18:09 05/27/20 25 05/27/2025 CBC MCHC 32.7 g/dL 32.0-3 6.0 Not Available [facility] [address], [place], [address], 05/27/2025 13:18:05/27/2005/27/2025 CBC RDW 12.7 % 11.5-1 4.5 Not Available [facility] [address], [place], [address], 05/27/2025 13:18:05/27/2005/27/2025 CBC plt 232.5 x10 140.0- 451.0 Not Available [facility] [address] [facility], [place], [address], 05/27/2025 13:18:05/27/2005/27/2025 CBC lymphocytes % 19.6 % 20.0-5 0.0 low Not Available [facility] [address] [facility], [place], [address], 05/27/2025 13:18:05/27/2005/27/2025 CBC granulcytes % 73.2 % 30.0-7 0.0 high Not Available [facility] [address] [facility], [place], [address], 05/27/2025 13:18:05/27/2005/27/2025 CBC monocytes % 6.3 % 2.0-16 .0 Not Available [facility] [address] [facility], [place], [address], 05/27/2025 13:18:09 05/27/20 25 05/27/2025 CBC granulcytes# 5.5 x10 Not Jennifer ilable [facility] [address] [facility] [address], [place], [address], 05/27/2025 13:18:09 05/27/20 25 05/27/2025 CBC lymphocytes # 1.5 x10 Not Available [facility] [address] [facility] [address], [place], [address], 05/27/2025 13:18:09 05/27/20 25 05/27/2025 CBC monocytes # 0.5 x10 Not Avai lable [facility] [address] [facility] [address], [place], [address], 05/27/2025 13:18:09 05/27/20 25 05/27/2025 GLUCO SE SCREE N glucose screen 108.0 mg/dL Not Available [address] [address], [place], [address], 05/27/2025 14:42:22 01/27/20 25 01/13/2025 US, obste tric, 1st trime ster No observ ation record ed. [email or web address] [facility] [address] [place], [address], 01/27/2025 09:10:51 04/05/20 25 04/04/2025 US, obste tric, 2nd trime ster No observ ation record ed. [facility] [address] [place], [address], 04/06/2025 13:07:14 Result Notes None recorded. Problems Name Problem SNOMED Code Status Onset Date Resolution Date Notes Provider Name and Address Organization Details Recorded Time History of musculoske letal disease 578787172 Active 2024 scoliosis, chiari malformati on TREBA NEUSCHWAN ROD [facility] [place] [facility] 10:52:08 Normal 56805216 Active 2024 EDDIE argueta, [facility], [place] 18:14:25 Heartburn 64897003 Active 2024 Que Gaitan MD [address] [place] [address], [phone], [facility], [facility] 16:07:03 Problem Notes None recorded. Procedures Surgical History Date Name Laterality Status Provider Name and Address Organization Details Recorded Time 02/05/20 Date of Last Pap Smear completed TUNDE CANSECO [facility], [facility] 06/24/2025 11:15:48 procedure on back completed EDDIE KHANH [facility], [facility] 12/27/2024 09:29:58 Imaging Results None recorded. [...] Not Available Not Available Not Available Vitals None Recorded Social History Question Answer Notes LastModified by Organizat ion Details LastModified Time Tobacco Smoking Status Never Smoker EDDIE argueta [facility] 12/27/2024 09:32:58 Are You Blind Or Do [...] 0.5 mL, PF 5 completed Not Available [facility] 06/24/2025 12:09:16 Tdap 5 completed Not Available [facility] 06/24/2025 12:09:16 COVID-19, mRNA, LNP-S, PF, 30 mcg/0.3 mL dose 1 completed Not Available [facility] 08/12/2025 10:30:59 COVID-19, mRNA, LNP-S, PF, 30 mcg/0.3 mL dose 1 completed Not Available [facility] 08/12/2025 10:30:59 Influenza, split virus, quadrivalent, PF 3 completed Not Available [facility] 08/12/2025 10:30:59 Influenza, MDCK, trivalent, preservative 4 completed Not Available [facility] 08/12/2025 10:30:59 Past Encounters Encounter ID Performer Location Encounter Start Date Encounter Closed Date Diagnosis/Indication Diagnosis SNOMED-CT Code Diagnosis ICD10 Code Diagnosis IMO Codes Diagnosis Note [id number] Que Gaitan MD [facility]) [address] [place] [address] 05/27/2025 10:12:40 05/30/2025 10:30:26 Gestation period, 28 weeks 12030074 Z3A.28 [id number] Que Gaitan MD [facility]) [address] [place] [phone] 05/27/2025 10:17:05 05/27/2025 11:37:07 Normal 91399092 Z34.03 8096371 Gestation period, 28 weeks 58579335 Z3A.28 [id number] Que Gaitan MD [facility] ([facility]) [address] [place] [address] 06/10/2025 14:48:16 06/10/2025 15:32:58 Normal 88770022 Z34.03 6187652 Gestation period, 30 weeks 05139580 Z3A.30 [id number] Que Gaitan MD [facility] ([facility]) [address] [place] [address] 06/21/2025 11:18:45 06/23/2025 04:01:12 Health Concerns Section Related Observation LastModified by Organization Detai ls LastModified Time None Recorded Concern Status LastModified by Organization Details LastModified Time None Recorded Payers Encounter Date Sequence Insurance Name Policy Number Policy [place] Covered Member ID [place] Member ID Guarantor Name 06/21/2025 1 [place] [id number] Jimena Richards [id number] Jimena Richards OBGyn Episode Ob Episode Information Episode Created Date Number of Fetuses Patient Bloodtype Patient rh Status Prepregnancy Weight lbs Domestic Partner Domestic Partner Phone Father Name Store Hand Status 12/28/19 1 A Positive Davy OPEN Fetus Data First Name Last Name Admitted to NICU Weight (g) Sex Living Outcome Pediatric Complications Fetus ID Race Codes Race Delivery Type [id number] Problems Problem Notes Epi consult 08/02/25 Problem Name Start Date End Date Resolution Snomed Code Not e Normal 04/03/2025 [id number] Candida Calculation Initial Candida Date Initial Exam [...] Weight in lbs Pre/Post Dialysis Refused Weight 144.269113394410 BP Diastolic BP Location Tested BP Systolic [...] Weight in lbs Pre/Post Dialysis Refused Weight 144.49541538674 BP Diastolic BP Location Tested BP Systolic [...] Weight in lbs Pre/Post Dialysis Refused Weight 144.070687766848 BP Diastolic BP Location Tested BP Systolic [...] Weight in lbs Pre/Post Dialysis Refused Weight 150.801462620771 BP Diastolic BP Location Tested BP Systolic [...] Weight in lbs Pre/Post Dialysis Refused Weight 152.354379069205 BP Diastolic BP Location Tested BP Systolic [...] Weight in lbs Pre/Post Dialysis Refused Weight 155.97574546890 BP Diastolic BP Location Tested BP Systolic [...] Weight in lbs Pre/Post Dialysis Refused Weight 156.295889697640 BP Diastolic BP Location Tested BP Systolic [...] Cervic Station 31 cm none none Negative [place] Carr trace Type Weight in lbs Pre/Post Dialysis Refused Weight 154.759076341283 BP Diastolic BP Location Tested BP Systolic [...] Cervic Station 32 cm none none Negative [place] Carr trace Type Weight in lbs Pre/Post Dialysis Refused Weight 155.86301532893 BP Diastolic BP Location Tested BP Systolic [...] Weight in lbs Pre/Post Dialysis Refused Weight 169.602742169348 BP Diastolic BP Location Tested BP Systolic [...] Cervic Station 35 cm none trace Negative [place] neg 0cm -2 Type Weight in lbs Pre/Post Dialysis Refused Weight 165.487582023622 BP Diastolic BP Location Tested BP Systolic [...] Weight in lbs Pre/Post Dialysis Refused Weight 163.491589599821 BP Diastolic BP Location Tested BP Systolic BP Type 88 136 Fetus Heart Rate Present A 148 Present Fetus Movement A Yes Comments vaginal and pelvic pressure, swelling in feet, hip pain Flowsheet Date 08/12/2025 Kemp Score Blood Edema Fundus Height Fundus Units Glucose Ketones Leukocytes Nitrite Labor Signs Protein Cervic Dilation Cervic Effacement Cervic Station 38 cm none [place] neg 1cm 80% -3 Type Weight in lbs Pre/Post Dialysis Refused Weight 164.736155332722 BP Diastolic BP Location Tested BP Systolic [...] Estim ated Date of Delivery false Thalassemia (Danish, Micronesian, Mediterranean, Or Background): MCV < 80 false Neural Tube Defect (Meningomyelocele, Spina Bifi da, Or Anencephaly) false Congenital Heart Defect false Down Syndrome false Jacob-Sachs (eg, Christianity, Cajun, Canadian-Lackawaxen) f alse Mira Disease false Sickle Cell Disease Or Trait () false Hemophilia Or Other Blood Disorders false Muscular Dystrophy false Cystic Fibrosis false [place]'s Chorea false Intellectual Disability/Autism false If Yes, [...]
--- OUTSIDE RECORDS SUMMARY | 2025-08-15 17:13 | XMS_ITS | Clinical Summary ---
Author Organization [facility] Address [address] [place] [address] Care Team Providers Care Tobacco Shaker Name Role Phone Heriberto Allen MD Primary Care Provider [phone] Allergies No known active allergies Medications hydrOXYzine HCL (ATARAX) 25 mg tablet Take 1 Tablet (25 mg) by mouth every 6 hours as needed for Anxiety. 25 Tablet 0 Active Additional Information Patient not taking.Reported on 08/15/2023 methocarbamoL (ROBAXIN) 750 mg tablet Take 1 Tablet (750 mg) by mouth 4 times daily as needed for Spasm. 40 Tablet 0 Active Additional Information Patient not taking.Reported on 08/15/2023 Active Problems Problem Noted Date Diagnosed Date Pityriasis rosea 08/13/2013 Viral wart 04/22/2013 Resolved Problems Problem Noted Date Diagnosed Date Resolved Date Acute URI 07/30/2011 04/22/2013 Immunizations Immunization Administration Dates Next Due (M-M-R II/PRIORIX)(12 MO UP) MEASLES, MUMPS AND RUBELLA VIRUS VACCINE, 0.5 ML IM/SUBCUT 02/10/2002,04/25/1998 (VARIVAX)(12 MOS UP)VARICELL A VIRUS VACCINE (PF) 0.5 ML, SUB CUT 06/04/2001 Dt Dtp Dtap Vaccine 02/10/2002, 9,02/17/1998,11/14,1997 HIB, Unspecified Formulation 04/25/1998,06/17/19 97 Hepatitis B Vaccine 1997,1997 IPV/OPV 02/10/2002, 8,1997,06/17 Meningococcal A Conjugate Vaccine IM 01/03/2015 Family History Medical History Relation Name Comments Healthy Father High Cholesterol Mother Relation Name Status Comments Father Mother Social History Tobacco Use Types Packs/Day Years Used Date Smoking Tobacco: Never Smokeless Tobacco: Never Alcohol Use Standard Drinks/Week Comments Not Currently 0 (1 standard drink = 0.6 oz pur e alcohol) Comments Unknown Sex and Gender Information Value Date Recorded Sex Assigned at Not on file Legal Sex Female 12:12 PM NURSE ADVISOR Gender Identity Not on file Sexual Orientation Not on file Last Filed Vital Signs Vital Sign Reading Time Taken Comments Blood Pressure 118/74 08/15/2023 1:27 PM NURSE ADVISOR Pulse 113 08/15/2023 1:27 PM NURSE ADVISOR Temperature 36.6 C (97.8 F) 08/15/2023 1:27 PM NURSE ADVISOR Respiratory Rate 18 08/15/2023 1:27 PM NURSE ADVISOR Oxygen Saturation 98% 08/15/2023 1:27 PM NURSE ADVISOR Inhaled Oxygen Concentration - - Weight 66.2 kg (146 lb) 08/15/2023 1:28 PM NURSE ADVISOR Height 170.2 cm (5' 7 ) 08/15/2023 1:27 PM NURSE ADVISOR Body Mass Index 22.87 08/15/2023 1:27 PM NURSE ADVISOR Plan of Treatment Health Maintenance Due Date Last Done Comments HEPATITIS B VACCINES (3 of 3 - 3-dose series) 1997 1997, 1997 DTAP/TDAP/TD VACCINES (6 - Tdap) 2008 02/10/2002, 04/06/1999, 02/17/1998, Additional history exists CERVICAL CANCER SCREENING 2018 HPV/Cotest (21-29) 2018 PAP SMEAR 2018 HPV VACCINES (1 - 3-dose SCD M series) 2024 Preventative Visit- Commercial 09/15/2024 11/30/2018 INFLUENZA VACCINE (#1) 2025 07/07/2024 Insurance [facility] ACCESS Care Teams Tobacco Shaker Relationship Specialty Start Date End Date Heriberto Allen MD [address] [phone] PCP - General Family Practice 08/15/23
--- OUTSIDE RECORDS SUMMARY | 2025-08-15 17:13 | XMS_ITS | Data Portability ---
Author Organization [place] [facility] Address [address] [address] Care Team Providers Care Demand Manager Name Role Phone PAUL OCONNOR Primary Care Provider Assessment No assessment recorded. Plan of Treatment Reminders Order Date Submit Date Provider Last Modified By Organization Details Last Modified Time Details Appointments None recorded. Lab pap, LB + reflex HR HPV 2018 019 [facility], [address] [place], [address], 9 12:02:57 CT + NG DNA, PCR, unspecifie d specimen 2018 019 [facility], [address] [place], [address], 9 12:03:01 TSH, serum or plasma 2013 014 [facility], [address] [place], [address], 4 14:02:23 CBC 2013 014 [facility], [address] [place], [address], 4 16:44:25 Referral None recorded. Procedures None recorded. Surgeries None recorded. Imaging None recorded. Medication Orders Blisovi 24 Fe 1 mg-20 mcg (24)/75 mg (4) tablet 2018 019 INTERFACE Not available 9 12:07:42 Generess Fe 0.8 mg-25 mcg (24)/75 mg (4) chewable tablet 2013 014 Not available 9 11:21:51 Patient TargetsNo targets recorded. Patient Instructions Encounter Date Encounter Id Patient Instructions Last Modified By Organization Details Last Modified Time 11/30/2018 [id number] self breast exam education amyl Not available 11/30/2018 12:07:39 osteoporosis education amyl Not available 11/30/2018 12:07:39 Reason for Referral None Reported. Results Created Date Observation Date Name Description Value Unit Range Abnormal Flag Note LastModifiedBy Organization Detail LastModifiedTime 02/26/20 14 02/26/2014 CBC w/dif f white blood cell count 5.9 thous and/u L 4.5-13 .0 normal Not Available [address], [address], 02/26/2014 06:43:23 02/26/20 14 02/26/2014 CBC w/dif f red blood cell count 4.17 moriah on/uL 3.80-5 .10 normal Not Available [address], [address], 02/26/2014 06:43:23 02/26/20 14 02/26/2014 CBC w/dif f hemoglobin 12.7 g/dL 11.5-1 5.3 normal Not Available [facility] [address], [address], 02/26/2014 06:43:23 02/26/20 14 02/26/2014 CBC w/dif f hematocrit 38.4 % 34.0-4 6.0 normal Not Available [facility] [address], [address], 02/26/2014 06:43:23 02/26/20 14 02/26/2014 CBC w/dif f MCV 92.1 fL 78.0-9 8.0 normal Not Available [facility] [address], [address], 02/26/2014 06:43:23 02/26/20 14 02/26/2014 CBC w/dif f MCH 30.5 pg 25.0-3 5.0 normal Not Available [address], [address], 02/26/2014 06:43:23 02/26/20 14 02/26/2014 CBC w/dif f MCHC 33.1 g/dL 31.0-3 6.0 normal Not Available [address], [address], 02/26/2014 06:43:23 02/26/20 14 02/26/2014 CBC w/dif f RDW 12.6 % 11.0-1 5.0 normal Not Available [address], [address], 02/26/2014 06:43:23 02/26/20 14 02/26/2014 CBC w/dif f platelet count 240 thous and/u L 140-40 0 normal Not Available [address], [address], 02/26/2014 06:43:23 02/26/20 14 02/26/2014 CBC w/dif f absolute neutrophils 3357 cells /uL 1800-8 000 normal Not Available [address], [address], 02/26/2014 06:43:23 02/26/20 14 02/26/2014 CBC w/dif f absolute lymphocytes 1345 cells /uL 1200-5 200 normal Not Available [address], [address], 02/26/2014 06:43:23 02/26/20 14 02/26/2014 CBC w/dif f absolute monocytes 991 cells /uL 200-90 0 high Not Available [address], [address], 02/26/2014 06:43:23 02/26/20 14 02/26/2014 CBC w/dif f absolute eosinophils 171 cells /uL 15-500 normal Not Available [address], [address], 02/26/2014 06:43:23 02/26/20 14 02/26/2014 CBC w/dif f absolute basophils 35 cells /uL 0-200 normal Not Available [address], [address], 02/26/2014 06:43:23 02/26/20 14 02/26/2014 CBC w/dif f neutrophils 56.9 % normal Not Available [address], [address], 02/26/2014 06:43:23 02/26/20 14 02/26/2014 CBC w/dif f lymphocytes 22.8 % normal Not Available [address], [address], 02/26/2014 06:43:23 02/26/20 14 02/26/2014 CBC w/dif f monocytes 16.8 % normal Not Available [address], [address], 02/26/2014 06:43:23 02/26/20 14 02/26/2014 CBC w/dif f eosinophils 2.9 % normal Not Available [address], [address], 02/26/2014 06:43:23 02/26/20 14 02/26/2014 CBC w/dif f basophils 0.6 % normal Not Available [address], [address], 02/26/2014 06:43:23 02/26/20 14 02/26/2014 thyro id stimu latin g hormo ne (TSH) w/ refle x T4 free TSH w/reflex to FT4 1.44 mIU/L normal refer ence range 1-19 years 0.50- 4.30 pregn amber range s first trime ster 0.26- 2.66 secon d trime ster 0.55- 2.73 third trime ster 0.43- 2.91 Not Available [facility] [address] , [place], [address], 02/26/2014 06:43:24 12/01/19 19 12/05/2018 pap, LB thinprep Pap test NEGATI VE negati ve normal . -- THIN PREP PAP TEST -- COLLE CTED DATE: 11/30 SEX: F : [birth year] AGE: 23 [id number] -[id number] CLINI C ID: [id number] SS: PHYSI DUANE: MARTHA AMBRIZ [facility] CTED BY: . Negat jaime for Intra epith elial Lesio n or Ramiro farah . . Addit ional Findi ngs: Endoc ervic al Mater ial Prese nt . Speci men Adequ acy: Satis facto ry for Evalu ation . Clini sara Note: Z11.3 Encnt r scree n for infec tions w sexl mode of trans miss, LMP 11-25 Speci men Sourc e: Cervi x / Endoc ervix Visit Type: Routi ne . . Perfo rmed by: Giovani Mcclure, CT (ASCP ) Revie wed by: Jaden Cheatham rd, DO (Elec troni c Signa ture 2018 10:38 ) . [facility] , [address] , [place] [address] , CLIA# [id number] Medic al Direc tor: Yuri Cheatham rd, DO Not Available [facility] [place] [address] [place], [address], 12/05/2018 12:02:57 12/01/19 19 11/30/2018 CT + NG DNA, PCR, unspe cifie d speci men gonorrhea, amplified NEGATI VE negati ve normal Not Available [facility] [place] [address] [place], [address], 12/05/2018 12:03:01 12/01/19 19 12/03/2018 CT + NG DNA, PCR, unspe cifie d speci men chlamydia, amplified NEGATI VE negati ve normal . DNA Test Resul [facility] CTED DATE: 11/30 SEX: F : [birth year] AGE: 23 [id number] [id number] [id number] CLINI C ID: [id number] SS: PHYSI DUANE: MARTHA AMBRIZ [facility] CTED BY: M2019 -2532 9 Speci men Sourc e: Cervi x / Endoc ervix Speci men Type: ThinP rep PAP Corre latin g Pap: [id number] . Neiss eria gonor rhoea e: NEGAT JAIME Elizabeth l Value : Negat jaime . Chlam ydia trach omati s: NEGAT JAIME Elizabeth l Value : Negat jaime . [facility] , [address] , [place] [address] CLIA# [id number] Medic al Direc tor: Yuri Cheatham rd, DO Not Available [facility] [place] [address] [place], [address], 12/05/2018 12:03:01 Result Notes None recorded. Problems Name Problem SNOMED Code Status Onset Date Resolution Date Notes Provider Name and Address Organization Details Recorded Time Dysmenorrhea 979058575 Active Diana Valdez null, [place] - [facility] 4 16:25:29 Premenstrual tension syndrome 45098476 Active Clau Thompson null [place] - [facility] 4 14:02:22 Problem Notes None recorded. Medical Equipment None Reported. Allergies No known drug allergies Medications Name Sig Start Date Stop Date Status Note LastModified by Organization Details LastModified Time azithromyci n 250 mg tablet 11/30 completed Not Available Not Available Not Available penicillin V potassium 500 mg tablet 11/30 completed Not Available Not Available Not Available hydrocodone 7.5 mg-acetamin ophen 325 mg tablet 11/30 completed Not Available Not Available Not Available fluconazole for eczema 11/30 completed Not Available Not Available Not Available Generess Fe 0.8 mg-25 mcg (24)/75 mg (4) chewable tablet CHEW AND SWALLOW ONE TABLET BY MOUTH DAILY. MAKE AN APPOINTME NT PRIOR TO FURTHER REFILLS. 11/30 completed Not Available Not Available Not Available Blisovi 24 Fe 1 mg-20 mcg (24)/75 mg (4) tablet TAKE 1 TABLET BY MOUTH EVERY DAY DIRECTED 2018 active Not Available Not Available Not Avai lable Vitals Date Recorded Body height Body mass index (BMI) Body weight Systolic And Diastolic Provider Name and Address Organization Details Last Updated DateTime 11/30/2018 170.18 cm 19.9 kg/m2 06012.23 g 108/68 mm[Hg] Marquez Victor [place] - [facility] 11/30/2018 11:26:06 Date Recorded Body height Body mass index (BMI) Body weight Systolic And Diastolic Provider Name and Address Organization Details Last Updated DateTime 02/25/2014 170.18 cm 18.8 kg/m2 88764.084 4 g 100/72 mm[Hg] Clau Thompson [facility] [place] 02/25/2014 14:03:35 Date Recorded Body weight Body height Body mass index (BMI) Systolic And Diastolic Provider Name and Address Organization Details Last Updated DateTime 04/19/2014 72607.676 77 g 170.18 cm 19 kg/m2 104/62 mm[Hg] Clau NASCIMENTO - [facility] 04/19/2014 15:40:47 Social History Question Answer Notes LastModified by Organizat ion Details LastModified Time Tobacco Smoking Status Never Smoker AZAM [place] - [facility] 02/25/2014 14:11:29 What Is Your Level Of Caffeine Consumption? Moderate Information not available 02/25/2014 Illicit Drugs No Information not available 02/25/2014 Marital Status Single Engaged Information not available 11/30/2018 What Was The Date Of Your Most Recent Tobacco Screening? 11/30/2018 Information not available 04/07/2019 How Many Children Do You Have? 0 Information not available 02/25/2014 Are You Sexually Active? Yes Information not available 02/25/2014 How Much Tobacco Do You Smoke? No Information not available 02/25/2014 Sex: Unknown Functional Status Question Answer Note LastModified by Organizat ion Details LastModified Time What is your level of alcohol consumption? Occasional Information not available 11/30/2018 What is your occupation? student [employer] Information not available 11/30/2018 What is your exercise level? Heavy Information not available 02/25/2014 Mental Status None recorded. Family History Relationship Description Onset Age of this Age Resolved Age Notes LastModified by Organization Details LastModified Time Mother Hypertensive disorder tshipley Not available 2013 14:11:29 Father Myocardial infarction tshipley Not available 02/25 14:11:29 Medical History Condition Response Breast Cancer N Endometriosis N Ovarian cancer N Diabetes N Blood Clots/DVT N Influenza Vaccine N Hyperlipidemia N Thyroid disease N Heart Disease N Hypertension N Gynecological History Statement/Question Response Prior colonoscopy date N Significant pain with periods? Yes Prior pap date none Date of LMP 11/25/2018 Duration of Flow (days) 5 Current Control Method Condoms Frequency of Cycle (Q days) 28 daily calcium supplement intake none Obstetrics History GPAL:G 0 P 0 0 0 0 Type Value Multiple Births 0 Full Term 0 Induced 0 Spontaneous 0 Premature 0 Living 0 Ectopics 0 Total 0 Past Encounters Encounter ID Performer Location Encounter Start Date Encounter Closed Date Diagnosis/Indication Diagnosis SNOMED-CT Code Diagnosis ICD10 Code Diagnosis IMO Codes Diagnosis Note [id number] Diana Valdez APRN, [facility] [address], [facility] [address] [place] [address] 02/25/2014 13:39:35 03/01/2014 14:55:40 Dysmenorrhea [id number] Premenstru al tension syndrome 32517644 [id number] Diana Valdez APRN, [facility] [address], [address] [place] [address] 04/19/2014 15:03:08 04/20/2014 10:44:19 Dysmenorrhea [id number] Martha Ambriz APRN, [facility] [address], [address] [place] [address] 11/30/2018 11:05:35 12/03/2018 12:56:28 Specialized medical examination 35581284 Z01.419 * yearly exam with pap/cultur esstart ocp with this cycleRisks with ocp's discussed including blood clots/stro kealso discussed kyleena iudf/u one year or sooner prn Venereal d isease screening 248729926 Z11.3 Health Concerns Section Related Observation LastModified by Organization Detai ls LastModified Time None Recorded Concern Status LastModified by Organization Details LastModified Time None Recorded Advance Directives Directive None Recorded Payers Insurance Date Sequence Insurance Name Policy Number Policy [place] Covered Member ID Salinas Member ID Guarantor Name 12/03/2018 1 [place] [id number] Zay Morel [id number] Adela Morel 11/27/2018 1 [facility] (PPO) [id number] Zay Morel [id number] Adela Morel Notes Date Note Type Note Provider Name and Address Organization Details Recorded Time 02/25/2014 text/html HPI Here for severe cramps. Reports that she started menarche at 14 years of age. Reports that her cycles are irregular. She may have two cycles one month and then she may skip cycles. The first day of her cycle she feels like she is going to pass out. She has been worked up for this problem by PCP. When she gets a little sugar in her diet and sleeps -she feels better. Blood sugar was normal. Take IBU which helps a little. This has occurred approx. 3 or 4 times now. Only occurs when it is time for her cycle. Does not have problems with bowel control or black out. AZAM Benietz - [facility] 03/14/2014 16:49:22 04/19/2014 text/html HPI Here for follow-up to generess. Feel ok. No complaints or problems. AZAM Benitez - [facility] 04/19/2014 16:25:38 11/30/2018 text/html Here for annual exam.No problems.Would like to discuss control options - currently using condoms.WAs on an ocp in high school - states she missed pill - stopped taking when she went to college.Menses regular.Increased cramping with cycles - slight improved when on ocp - cramping is mainly cd 1.Engaged to be 02/13/19. Martha Ambriz, PIPE LINE INSPECTOR, [address], [address], [place], [address], [place] - [facility] 11/30/2018 12:13:32 OBGyn Episode No OBEpisode recorded.
--- OUTSIDE RECORDS SUMMARY | 2025-08-15 17:13 | XMS_ITS | Data Portability ---
Author Organization AZAM Gabriel Saenz [facility], VICENTE [facility] Address [facility] [address] [address] Assessment Encounter Date Assessment Date Assessment LastModified [...] e, vagina l or rectal 2024 025 [facility] [place] [address], [facility] [address] [place], [address], 07/28/2025 16:58:37 Referral None record ed. Procedures None record ed. Surgeries None record ed. Imaging None record ed. Medication Orders omepra zole 20 mg capsul e,ju yed releas e 2024 025 [facility], [address] [facility] [address], [place], [address], 07/29/2025 16:07:51 Patient TargetsNo targets recorded. Patient InstructionsNo instructions recorded. Reason for Referral None Reported. Results Created Date Observation Date Name Description Value Unit Range Abnormal Flag Note LastModifiedBy Organization Detail LastModifiedTime 07/21/20 25 07/24/2025 STREP TOCOC CUS, GROUP B CULTU RE streptococcu s, group B culture SEE NOTE STREP TOCOC CUS, GROUP B CULTU RE Micro Numbe r: [id number] Test Statu s: Final Speci men Sourc e: Vagin al/an orect al Speci men Quali ty: Adequ ate Resul t: No group B Strep tococ cus isola ric Note per CDC guide lines optim al recov rosa is achie stanislav by swabb ing both the lower vagin a and rectu m (thro ugh the anal sphin cter) . Not Available [facility] [address], [place], [address], 07/24/2025 11:53:50 08/02/2008/02/2025 URINA LYSIS WITH MICRO color YELLOW Not Available [facility] [address], [place], [address], 08/02/2025 16:34:07 08/02/20 25 08/02/2025 URINA LYSIS WITH MICRO clarity CLEAR Not Available [facility] [address], [place], [address], 08/02/2025 16:34:07 08/02/20 25 08/02/2025 URINA LYSIS WITH MICRO glu NEGATI VE Not Available [facility] [address], [place], [address], 08/02/2025 16:34:07 08/02/20 25 08/02/2025 URINA LYSIS WITH MICRO bili NEGATI VE Not Available [facility] [address], [place], [address], 08/02/2025 16:34:07 08/02/20 25 08/02/2025 URINA LYSIS WITH MICRO ket NEGATI VE Not Available [facility] [address], [place], [address], 08/02/2025 16:34:07 08/02/20 25 08/02/2025 URINA LYSIS WITH MICRO S.g 1.020 Not Available [facility] [address], [place], [address], 08/02/2025 16:34:07 08/02/20 25 08/02/2025 URINA LYSIS WITH MICRO pH 7.0 Not Available [facility] [address], [place], [address], 08/02/2025 16:34:07 08/02/20 25 08/02/2025 URINA LYSIS WITH MICRO pro 1+ abnormal Not Available [facility] [address], [place], [address], 08/02/2025 16:34:07 08/02/20 25 08/02/2025 URINA LYSIS WITH MICRO uro 0.2 E.U./D L Not Available [facility] [address], [place], [address], 08/02/2025 16:34:07 08/02/20 25 08/02/2025 URINA LYSIS WITH MICRO nit NEGATI VE Not Available [facility] [address], [place], [address], 08/02/2025 16:34:07 08/02/20 25 08/02/2025 URINA LYSIS WITH MICRO blo NEGATI VE Not Available [facility] [address], [place], [address], 08/02/2025 16:34:07 08/02/20 25 08/02/2025 URINA LYSIS WITH MICRO sandeep NEGATI VE Not Available [facility] [address], [place], [address], 08/02/2025 16:34:07 08/02/20 25 08/02/2025 URINA LYSIS WITH MICRO WBC 3-4 Not Available [facility] [address] [facility] [address], [place], [address], 08/02/2025 16:34:07 08/02/20 25 08/02/2025 URINA LYSIS WITH MICRO RBC 0-1 Not Available [facility] [address] [facility] [address], [place], [address], 08/02/2025 16:34:07 08/02/20 25 08/02/2025 URINA LYSIS WITH MICRO epi cells 10-12 abnormal Not Available [facility] [address] [facility] [address], [place], [address], 08/02/2025 16:34:07 08/02/20 25 08/02/2025 URINA LYSIS WITH MICRO bacteria TRACE OF MIXED EVA abnormal Not Available [facility] [address] [facility] [address], [place], [address], 08/02/2025 16:34:07 08/02/20 25 08/02/2025 URINA LYSIS WITH MICRO other NG Not Available [facility] [address] [facility] [address], [place], [address], 08/02/2025 16:34:07 Result Notes None recorded. Problems Name Problem SNOMED Code Status Onset Date Resolution Date Notes Provider Name and Address Organization Details Recorded Time History of musculoske letal disease 014019068 Active 2024 scoliosis, chiari malformati on TREBA NEUSCHWAN ROD kendall [place] - [facility]enniffer 10:52:08 Normal 34037548 Active 2024 EDDIE argueta [place] - [facility]CJenniffer 18:14:25 Heartburn 85022635 Active 2024 Que Gaitan MD [address] [place], [address], [facility], Peng 16:07:03 Problem Notes None recorded. Procedures Surgical History Date Name Laterality Status Provider Name and Address Organization Details Recorded Time 02/05/20 25 Date of Last Pap Smear completed TUNDE CANSECO [facility], Peng 06/24/2025 11:15:48 procedure on back completed EDDIE CASSIDY [facility], Peng 12/27/2024 09:29:58 Imaging Results [...] Updated DateTime 5 170.18 cm 24.3 kg/m2 23501.5 2 g 98 % 84 /min 18 /min 98.4 [degF] 132/84 mm[Hg] TUNDE MICHELLE [facility] 5 16:14:02 Date Recorded Body height Body mass index (BMI) Body weight Oxygen saturation Heart rate Respiratory rate Body temperature Systolic And Diastolic Provider Name and Address Organization Details Last Updated DateTime 5 170.18 cm 26.5 kg/m2 13240.9 1 g 99 % 102 /min 18 /min 97.8 [degF] 134/80 mm[Hg] TUNDE MICHELLE [facility] 5 10:10:55 Date Recorded Body height Body mass index (BMI) Body weight Oxygen saturation Heart rate Respiratory rate Body temperature Systolic And Diastolic Provider Name and Address Organization Details Last Updated DateTime 5 170.18 cm 25.9 kg/m2 91637.8 4 g 98 % 72 /min 18 /min 98 [degF] 140/76 mm[Hg] [facility] 5 15:35:47 Date Recorded Body height Body mass index (BMI) Body weight Heart rate Oxygen saturation Respiratory rate Body temperature Systolic And Diastolic Provider Name and Address Organization Details Last Updated DateTime 5 170.18 cm 25.6 kg/m2 44144.3 6 g 87 /min 98 % 18 /min 98.2 [degF] 136/88 mm[Hg] EDDIE CASSIDY [facility], L.L.CJenniffer 5 10:39:28 Date Recorded Body height Body mass index (BMI) Body weight Respiratory rate Heart rate Oxygen saturation Body temperature Systolic And Diastolic Systolic And Diastolic Systolic And Diastolic Provider Name and Address Organization Details Last Updated DateTime 5 170.18 cm 25.7 kg/m2 06902.8 5 g 18 /min 80 /min 99 % 97.9 [degF] 160/100 mm[Hg] 154/96 mm[Hg] 148/96 mm[Hg] EDDIE CASSIDY [facility] 11:22:07 Social History Question Answer Notes LastModified by Organizat ion Details LastModified Time Tobacco Smoking Status Never Smoker EDDIE CASSIDY kendall [facility] 12/27/2024 09:32:58 Are You Blind Or [...] 0.5 mL, PF 5 completed Not Available [facility] 06/24/2025 12:09:16 Tdap 5 completed Not Available [facility] 06/24/2025 12:09:16 COVID-19, mRNA, LNP-S, PF, 30 mcg/0.3 mL dose 1 completed Not Available [facility] 08/12/2025 10:30:59 COVID-19, mRNA, LNP-S, PF, 30 mcg/0.3 mL dose 1 completed Not Available [facility] 08/12/2025 10:30:59 Influenza, split virus, quadrivalent, PF 3 completed Not Available [facility] 08/12/2025 10:30:59 Influenza, MDCK, trivalent, preservative 4 completed Not Available [facility] 08/12/2025 10:30:59 Past Encounters Encounter ID Performer Location Encounter Start Date Encounter Closed Date Diagnosis/Indication Diagnosis SNOMED-CT Code Diagnosis ICD10 Code Diagnosis IMO Codes Diagnosis Note [id number] Que Gaitan MD [facility] ([facility]) [address] [place] [phone] 12/27/2024 08:59:04 12/27/2024 10:18:53 Normal in primigravida 5435311670 52923 Z34.01 Gestation period, 6 weeks 99317187 Z3A.01 [id number] Que Gaitan MD [facility] ([facility]) [address] [place] [phone] 5 01/13/2025 15:58:27 01/14/2025 12:46:19 [id number] Que Gaitan MD [facility] ([facility]) [address] [place] [phone] 5 02/04/2025 10:33:17 02/04/2025 11:49:17 Normal in primigravida 5448623446 63564 Z34.01 Z34.02 Z34.03 [id number] Que Gaitan MD [facility] ([facility]) [address] [place] [phone] 5 03/02/2025 09:01:06 03/03/2025 11:50:40 [id number] Que Gaitan MD [facility] ([facility]) [address] [place] [phone] 5 03/09/2025 11:55:18 03/09/2025 12:59:54 Normal 69933611 Z34.90 Gestation period, 16 weeks 22745536 Z3A.16 7475681 [id number] Que Gaitan MD [facility] ([facility]) [address] [place] [phone] 5 04/04/2025 12:59:35 04/04/2025 14:00:23 Normal 65020268 Z34.02 0854220 Gestation period, 20 weeks 62632144 Z3A.20 5760802 [id number] Que Gaitan MD [facility] ([facility]) [address] [place] [address] [phone] 5 04/04/2025 12:05:34 04/05/2025 14:12:19 [id number] Que Gaitan MD [facility] ([facility]) [address] [place] [phone] 5 05/12/2025 15:56:55 05/17/2025 16:53:36 Normal 96391110 Z34.02 5228129 Gestation period, 25 weeks 19812753 Z3A.25 1462630 Heartburn 04427090 R12 81140 [id number] Que Gaitan MD [facility] ([facility]) [address] [place] [address] [phone] 5 05/27/2025 10:12:40 05/30/2025 10:30:26 Gestation period, 28 weeks 36663356 Z3A.28 3819496 [id number] Que Gaitan MD [facility] ([facility]) [address] [place] [address] [id number] 5 05/27/2025 10:17:05 05/27/2025 11:37:07 Normal 98879699 Z34.03 4751774 Gestation period, 28 weeks 04418336 Z3A.28 4970050 [id number] Que Gaitan MD [facility] ([facility]) [address] [place] [phone] 5 06/10/2025 14:48:16 06/10/2025 15:32:58 Normal 64428966 Z34.03 3144202 Gestation period, 30 weeks 57864761 Z3A.30 7228056 [id number] Que Gaitan MD [facility] ([facility]) [address] [place] [address] [phone] 5 06/24/2025 11:00:47 06/24/2025 12:00:11 Primigravida 161812108 Z34.03 02609666 Gestation period, 32 weeks 3303625 Z3A.32 1458021 [id number] Que Gaitan MD [facility] ([facility]) [address] [place] [id number] 5 06/21/2025 11:18:45 06/23/2025 04:01:12 [id number] Que Gaitan MD [facility] ([facility]) [address] [place] [phone] 5 07/07/2025 15:41:05 07/07/2025 16:39:59 Gestation period, 33 weeks 35086511 Z3A.33 7531155 [id number] Que Gaitan MD [facility]) [address] [place] [phone] 5 07/21/2025 09:52:20 07/21/2025 10:44:43 Primigravida 659702844 Z34.03 91137790 Gestation period, 35 weeks 15770345 Z3A.35 7311233 [id number] Que Gaitan MD [facility] ([facility]) [address] [place] [address] 07/29/2025 15:06:18 07/29/2025 16:01:08 Primigravida 651660917 Z34.03 20803968 Gestation period, 37 weeks 60549707 Z3A.37 4083314 Heartburn 60577922 O26.8 93 R12 [id number] Health Concerns Section Related Observation LastModified by Organization Detai ls LastModified Time None Recorded Concern Status LastModified by Organization Details LastModified Time None Recorded Advance Directives Directive None Recorded Payers Insurance Date Sequence Insurance Name Policy Number Policy Sal[place] Covered Member ID Salinas Member ID Guarantor Name 08/15/2025 1 [place] [id number] Jimena L Richards [id number] Jimena L Richards 02/03/2025 2 [facility] Jimena L Richards [id number] Jimena L Richards 02/03/2025 2 [place] Jimena L Richards [id number] [facility] Richards Notes Date Note Type Note Provider [...] is still trickling out. Que Gaitan MD [address] [place] [address], [phone], [facility] 07/07/2025 16:37:22 5 text/html ob routineReported by PatientHPIFor associated symptoms, patient reportscontractions (irr),nausea,emesis,edema (feet with prolonged standing),dizziness, andbreathlessnessbut reportsno abdominal pain,no cramping,normal movement,no bleeding,no vaginal discharge,no vaginal/vulvar itching or irritation,no dysuria,no frequency,no urgency,no hematuria,no fever,no constipation,no diarrhea/loose stool,no visual changes, andno headache.heartburn- improved,low back pain, bilateral hip pain, vaginal pressure, pelvic discomfortDenies any tobacco, nicotine, alcohol, or drug useROS as noted in the HPI Que Gaitan MD [address] [place] [address], [phone], [facility] 07/21/2025 10:39:41 5 text/html ob routineReported by PatientHPIFor associated symptoms, patient reportsabdominal pain,cramping,contraction s (irr),nausea,emesis,edema (feet with prolonged standing),dizziness, andbreathlessnessbut reportsnormal movement,no bleeding,no vaginal discharge,no vaginal/vulvar itching or irritation,no dysuria,no frequency,no urgency,no hematuria,no fever,no constipation,no diarrhea/loose stool,no visual changes, andno headache.heartburn- improved,low back pain, bilateral hip pain, vaginal pressure, pelvic discomfortDenies any tobacco, nicotine, alcohol, or drug useROS as noted in the HPI Que Gaitan MD [address] [place] [address], [phone], [facility] 07/29/2025 16:07:49 5 text/html ob routineReported by PatientHPIFor associated symptoms, patient reportscontractions (iggy ratliff),vaginal discharge, andedema (feet with prolonged standing)but reportsno abdominal pain,no cramping,normal movement,no bleeding,no vaginal/vulvar itching or irritation,no dysuria,no frequency,no urgency,no hematuria,no fever,no nausea,no emesis,no constipation,no diarrhea/loose stool,no visual changes,no headache,no dizziness, andno breathlessness.low back pain, bilateral hip pain, vaginal pressure, pelvic discomfortDenies any tobacco, nicotine, alcohol, or drug useROS as noted in the HPI Not Available Not Available Not Available 5 text/html jr ob routineReported by PatientHPIFor associated symptoms, patient reportscontractions (iggy ratliff),edema (feet with prolonged standing),headache, anddizzinessbut reportsno abdominal pain,no cramping,normal movement,no bleeding,no vaginal discharge,no vaginal/vulvar itching or irritation,no dysuria,no frequency,no urgency,no hematuria,no fever,no nausea,no emesis,no constipation,no diarrhea/loose stool,no visual changes, andno breathlessness.low back pain, bilateral hip pain, vaginal pressure, pelvic discomfortDenies any tobacco, nicotine, alcohol, or drug useROS as noted in the HPI Not Available Not Available Not Available OBGyn Episode Ob Episode Information Episode Created Date Number of Fetuses Patient Bloodtype Patient rh Status Prepregnancy Weight lbs Domestic Partner Domestic Partner Phone Father Name Compliance Spec Status 12/28/19 1 A Positive Davy OPEN Fetus Data First Name Last Name Admitted to NICU Weight (g) Sex Living Outcome Pediatric Complications Fetus ID Race Codes Race Delivery Type [id number] Problems Problem Notes Epi consult 08/02/25 Problem Name Start Date End Date Resolution Snomed Code Not e Normal 04/03/2025 47056759 Candida Calculation Initial Candida Date Initial Exam [...] Weight in lbs Pre/Post Dialysis Refused Weight 144.352852974648 BP Diastolic BP Location Tested BP Systolic [...] Weight in lbs Pre/Post Dialysis Refused Weight 144.33814264525 BP Diastolic BP Location Tested BP Systolic [...] Weight in lbs Pre/Post Dialysis Refused Weight 144.030995723428 BP Diastolic BP Location Tested BP Systolic [...] Fetus Movement Comments u/s on 04/04/25, CANDIDA 12/3/25, EGA 20.5, placenta anterior, no previa or abruption. Unremarkable screening survey of anatomy Flowsheet Date 04/04/2025 Kemp Score Blood Edema Fundus Height Fundus Units Glucose Ketones Leukocytes Nitrite Labor Signs Protein Cervic Dilation Cervic Effacement Cervic Station 21 cm none none Negative neg Type Weight in lbs Pre/Post Dialysis Refused Weight 150.886591142222 BP Diastolic BP Location Tested BP Systolic [...] Weight in lbs Pre/Post Dialysis Refused Weight 152.860677820271 BP Diastolic BP Location Tested BP Systolic [...] Weight in lbs Pre/Post Dialysis Refused Weight 155.77212553614 BP Diastolic BP Location Tested BP Systolic [...] Weight in lbs Pre/Post Dialysis Refused Weight 156.654446790771 BP Diastolic BP Location Tested BP Systolic [...] Cervic Station 31 cm none none Negative Sherburne Ratliff trace Type Weight in lbs Pre/Post Dialysis Refused Weight 154.463619624481 BP Diastolic BP Location Tested BP Systolic [...] Station 32 cm none none Negative Iggy Ratliff trace Type Weight in lbs Pre/Post Dialysis Refused Weight 155.89504909503 BP Diastolic BP Location Tested BP Systolic BP Type 84 132 sitting Fetus Heart Rate Present A 148 Fetus Movement A Yes Comments vaginal discharge/pressure, back pain, sob, pelvic pain, sob, dizziness, Flowsheet Date 07/21/2025 Kemp Score Blood Edema Fundus Height Fundus Units Glucose Ketones Leukocytes Nitrite Labor Signs Protein Cervic Dilation Cervic Effacement Cervic Station none trace Negative Iggy Ratliff trace Type Weight in lbs Pre/Post Dialysis Refused Weight 169.880495958088 BP Diastolic BP Location Tested BP Systolic [...] Station 35 cm none trace Negative Iggy Ratliff neg 0cm -2 Type Weight in lbs Pre/Post Dialysis Refused Weight 165.686883275544 BP Diastolic BP Location Tested BP Systolic BP Type 76 140 sitting Fetus Heart Rate Present A 144 Present Fetus Movement A Yes Comments abdominal pain/cramping, swathi k,pelvic,hip pain, vaginal pressure,N/V, dizziness,edema in feet Flowsheet Date 08/02/2025 Kemp Score Blood Edema Fundus Height Fundus Units Glucose Ketones Leukocytes Nitrite Labor Signs Protein Cervic Dilation Cervic Effacement Cervic Station none none Iggy Ratliff 1+ Type Weight in lbs Pre/Post Dialysis Refused Weight 163.723598768062 BP Diastolic BP Location Tested BP Systolic BP Type 88 136 Fetus Heart Rate Present A 148 Present Fetus Movement A Yes Comments vaginal and pelvic pressure, swelling in feet, hip pain Flowsheet Date 08/12/2025 Kemp Score Blood Edema Fundus Height Fundus Units Glucose Ketones Leukocytes Nitrite Labor Signs Protein Cervic Dilation Cervic Effacement Cervic Station 38 cm none Sherburne Ratliff neg 1cm 80% -3 Type Weight in lbs Pre/Post Dialysis Refused Weight 164.411633783663 BP Diastolic BP Location Tested BP Systolic [...] ated Date of Delivery false Thalassemia (Danish, Djiboutian, Mediterranean, Or Background): MCV < 80 false Neural Tube Defect (Meningomyelocele, Spina Bifi da, Or Anencephaly) false Congenital Heart Defect false Down Syndrome false Jacob-Sachs (eg, Buddhist, Cajun, Welsh-Murdock) f alse Mira Disease false Sickle Cell Disease Or Trait () false Hemophilia Or Other Blood Disorders false Muscular Dystrophy false Cystic Fibrosis false Dillingham's Chorea false Intellectual Disability/Autism false If Yes, [...]
--- NOTE | 2025-08-15 17:18 | ED_ITS ---
HPI - Recheck/Abnormal Lab/Rx 2 General: Chief Complaint: Recheck/Abnormal Lab/Rx Stated Complaint: htn - 3 days Time Seen by Provider: 08/15/25 17:10 History of Present Illness: Patient is a 30-year-old female status post 39-week term delivery on 08/12, with the previous 2 weeks prior to delivery with preeclampsia that presents to the emergency room with hypertension. Context: Patient is on labetalol 200 mg p.o. twice daily, at 5 AM, and 5 PM. She lives in [place], [place]. She noted she had a high blood pressure this afternoon just after 4 PM, and went to the local ambulance bay for evaluation. Blood pressure there was 215/115. She was brought in via EMS. Saline lock was started. Patient was given labetalol IV, according to her. Initial blood pressure here is 171/100. Patient states she has not taken her 5 PM labetalol 200 mg dose. Intake today: A few pieces of pizza, glass of milk. Does not follow a low-sodium diet Onset/Timin Initial visit (ago): hour(s) Related Data Home Medications ?Medication ?Instructions ?Recorded ?Confirmed [id number] 1 mg 1 tab PO DAILY 08/12/25 tablet Previous Rx's ?Medication ?Instructions ?Recorded ibuprofen 800 mg tablet 800 mg PO TID #45 tabs 08/14 labetalol 200 mg tablet 200 mg PO BID #45 tabs 08/14 cefdinir 300 mg capsule 300 mg PO BID 10 days #20 ca ps 08/16/25 clonidine HCl 0.1 mg tablet 0.1 mg PO Q4H PRN hyperten sive 08/16/25 emergency 48 hours #30 tabs lisinopril 20 mg tablet 20 mg PO DAILY #30 tabs 12/0 11/09 nifedipine 60 mg tablet,extended 60 mg PO DAILY #30 ta bs 08/16/25 release 24 hr (Procardia XL) Allergies Allergy/AdvReac Type Severity Reaction Status Date / Time No Known Allergies Allergy Verified 03/14/25 09:51 Review of Systems 2 General: Reports: 10 or more systems reviewed and unremarkable except in HPI and below Const: Denies: fever(s), chills, body aches, fatigue or malaise ENMT: Denies: throat pain, ear or mastoid pain or sinus pain Card: Denies: chest pain, palpitations or swelling of feet/ankles Resp: Reports: non-productive cough; Denies: dyspnea GI: Denies: abdominal pain, diarrhea, constipation or hematochezia : Denies: flank pain or difficulty voiding Musc: Reports: back pain; Denies: extremity swelling Skin/Breast: Denies: rash Neuro: Reports: headache(s); Denies: numbness in extremities, weakness in extremities or confusion Psych: Denies: anxiety or depression PFSH ED 2 PFSH: Medical History (Updated 08/16/25 @ 00:10 by WHITLEY Lynch) Chiari I malformation Surgical History (Updated 08/13/25 @ 06:50 by Que Gaitan MD) History of cervical spinal surgery Family History Mother Hypertension Grandfather Heart disease maternal Grandmother Stroke maternal Social History Smoking and tobacco/nicotine status: never used tobacco/nicotine Alcohol intake: never Substance/Drug Use: never Adopted: No Caregiver/support person: No Lives independently: No Household members: spouse service: No Current occupational status: employed Sexually active: Yes Do you think of yourself as: Straight/Heterosexual Current gender identity: Female Physical Exam 2 Const: COMMON NORMALS: no acute distress, average body habitus, patient oriented x3 and alert ORIENTATION/CONSCIOUSNESS: Yes oriented to person, Yes oriented to place and Yes oriented to time HENMT: COMMON NORMALS: normocephalic and atraumatic HEAD & SCALP: n ormocephalic and atraumatic Neck/C-Spine: COMMON NORMALS: no JVD Chest: COMMONS NORMALS: normal inspection of the chest and normal palpation of entire chest wall Resp: COMMON NORMALS: normal respiratory effort, No retractions, No use of accessory muscles, clear to auscultation bilaterally and percussion normal A USCULTATION: clear to auscultation bilaterally PERCUSSION: percussion normal Cardio: COMMON NORMALS: no JVD, regular rate, regular rhythm, S1 normal heart sound present, S2 normal heart sound present, No gallops present (Cardio), No clicks present (Cardio), No rub (Cardio) and Peripheral pulses 2+ throughout RATE: regular rate RHYTHM: regular rhythm HEART SOUNDS: S1 normal heart sound present, S2 normal heart sound present and Murmur heart sound present systolic PERIPHERAL PULSES: Peripheral pulses 2+ throughout GI: COMMON NORMALS: Normal to inspection, nondistended, normoactive bowel sounds present, Soft to palpation, non-tender, No hepatosplenomegaly present, no masses and no bruits PALPATION: Yes Soft to palpation and Yes No hepatosplenomegaly present : COMMON NORMALS: Yes no CVA tenderness BLADDER/KIDNEY EXAM: Yes no CVA tenderness Back/Pelvis: COMMON NORMALS: no CVA tenderness Extremity: COMMON NORMALS: normal to inspection, full ROM, capillary refill normal, no joint enlargement, no clubbing, cyanosis or edema and no calf tenderness Neuro: COMMON NORMALS: patient oriented x3 SENSORIUM/ORIENTATION: Yes alert, Yes oriented to person, Yes oriented to place and Yes oriented to time Psych: COMMON NORMALS: mental status grossly normal, Normal thought process present and cooperative THOUGHT PROCESS: Normal thought process present Skin: COMMON NORMALS: no rashes or lesions noted, no wounds and turgor normal GENERAL SKIN EXAM: no rashes or lesions noted and turgor normal Course 2 Consultations: Consultation #1: Dr. Gaitan called. Recommends labetalol 40 mg IV push, if blood pressure decreases, add Procardia 60 mg XL to her labetalol at home. Vital Signs: Vital signs: Vital Signs Temperature 98.6 F 08/15/25 17:12 Pulse Rate 101 H 08/15/25 22:37 Respiratory Rate 16 08/15/25 18:50 Blood Pressure 161/101 08/15/25 22:37 Pulse Oximetry 95 08/15/25 22:37 Oxygen Delivery Me thod Room Air 08/15/25 22:37 MDM - Recheck/Abnormal Lab/Rx Medical Decision Making Patient is a 30-year-old female that reports to the emergency room via EMS with blood pressure readings just before 4:00 that were quite elevated 200s/100s. Her and her went to the ambulance shed, and confirmed blood pressure 215/110. Patient was brought in via EMS, received labetalol 20 mg and route. I discussed the case with Dr. Gaitan, that recommended giving 40 mg of labetalol IV, and Procardia. I then spoke with him again when the computers were down, and he recommended clonidine 0.2 mg. She had all of these things, plus lisinopril, and hydrochlorothiazide. Blood pressure did come down to 141/97. Patient will follow a Mediterranean/low salt diet. She did have some pyuria, however this will need to be cultured, because it could be physiologic from recent vaginal delivery. Cefdinir was sent to the pharmacy of [facility], at [place]. Patient did receive ceftriaxone x 1 here. All of her and her 's questions were answered to their satisfaction. Lab Data 08/15/25 17:22 08/15/25 17:22 Radiology Impressions Chest X-Ray 08/15/25 17:23 IMPRESSION: No acute cardiopulmonary findings radiographically. Laboratory Results WBC 9.48 10^3/uL (3.29-11.43) 08/15/25 17:22 RBC 3.08 10^6/uL (3.85-5.65) L 08/15/25 17:22 Hgb 8.70 g/dL (11.27-16.99) L 08/15/25 17:22 Hct 25.9 % (36-47) L 08/15/25 17:22 MCV 84.1 fl (85-98) L 08/15/25 17:22 MCH 28.2 pg (27-33) 08/15/25 17:22 MCHC 33.6 g/dL (30-55) 08/15/25 17:22 RDW 13.7 % (12.1-15.1) 08/15/25 17:22 Plt Count 273 10^3/cmm (157-399) 08/15/25 17:22 MPV 10.2 fL (7.4-10.4) 08/15/25 17:22 Neut % (Auto) 70.9 % 08/15/25 17:22 Lymph % (Auto) 17.6 % 08/15/25 17:22 [place] % (Auto) 7.3 % 08/15/25 17:22 Eos % (Auto) 2.6 % 08/15/25 17:22 Baso % (Auto) 0.4 % 08/15/25 17:22 Neut # (Auto) 6.72 10^3/uL (1.8-7.7) 08/15/25 17:22 Lymph # (Auto) 1.7 10^3/uL (0.8-4.8) 08/15/25 17:22 [place] # (Auto) 0.7 10^3/uL (0.2-0.9) 08/15/25 17:22 Eos # (Auto) 0.3 10^3/uL (0.0-0.8) 08/15/25 17:22 Baso # (Auto) 0.0 10^3/uL (0.0-0.1) 08/15/25 17:22 Nucleated RBC % (auto) 0 % 08/15/25 17:22 Nucleated RBCs # 0.0 /100WBC 08/15/25 17:22 Sodium 139 mmol/L (136-145) 08/15/25 17:22 Potassium 4.1 mmol/L (3.5-5.1) 08/15/25 17:22 Chloride 106 mmol/L (98-107) 08/15/25 17:22 Carbon Dioxide 22 mmol/L (22-29) 08/15/25 17:22 Anion Gap 15.1 (5-19) 08/15/25 17:22 BUN 7 mg/dL (6-20) 08/15/25 17:22 Creatinine 0.5 mg/dL (0.5-0.9) 08/15/25 17:22 GFR Calculation 146.9 mL/min (90-130) H 08/15/25 17:22 Glucose 94 mg/dL (65-115) 08/15/25 17:22 Calculated Osmolality 286 mOsm/kg (285-295) 08/15/25 17:22 Calcium 9.3 mg/dL (8.5-10.5) 08/15/25 17:22 Magnesium 1.7 mg/dL (1.7-2.3) 08/15/25 17:22 Total Bilirubin 0.3 mg/dL (0.15-1.2) 08/15/25 17:22 AST 19 U/L (0-32) 08/15/25 17:22 ALT 16 U/L (0-33) 08/15/25 17:22 Alkaline Phosphatase 129 U/L (35-105) H 08/15/25 17:22 NT-Pro-B Natriuret Pep 299 pg/mL (0-125) H 08/15/25 17:22 Total Protein 6.0 g/dL (6.6-8.7) L 08/15/25 17:22 Albumin 3.1 g/dL (3.5-5.2) L 08/15/25 17:22 Globulin 2.9 g/dL (1.3-4.6) 08/15/25 17:22 Urine Color [place] (Yellow) A 08/15/25 18:06 Urine Appearance Clear (CLEAR) 08/15/25 18:06 Urine pH 7.5 (5-7) 08/15/25 18:06 Ur Specific [place] 1.005 (1.005-1.030) 08/15/25 18:06 Urine Protein Trace (Negative) A 08/15/25 18:06 Urine Glucose (UA) Negative (Normal) 08/15/25 18:06 Urine Ketones Negative (Negative) 08/15/25 18:06 Urine Blood 3+ (Negative) A 08/15/25 18:06 Urine Nitrate Negative (Negative) 08/15/25 18:06 Urine Bilirubin Negative (Negative) 08/15/25 18:06 Urine Urobilinogen 0.2 mg/dL (Negative) 08/15/25 18:06 Ur Leukocyte Esterase 2+ (Negative) A 08/15/25 18:06 Urine RBC 51-100 /hpf (0-2) H 08/15/25 18:06 Urine WBC 21-50 /hpf (0-5) H 08/15/25 18:06 Ur Squamous Epith Cells 0-5 /hpf (0-5) 08/15/25 18:06 Amorphous Sediment Not Reportable 08/15/25 18:06 Urine Bacteria None seen /hpf (NONE) 08/15/25 18:06 Hyaline Casts 0-4 /lpf H 08/15/25 18:06 U Random Total Protein 17 mg/dL 08/15/25 18:06 All radiology interpretation(s) finalized by discharge EKG Data EKG 1: Interpretation: sr, no ST segment elevation Discharge Plan Discharge Patient Disposition: Home Clinical Impression: Hypertension, uncontrolled Condition: Stable Prescriptions: New nifedipine [Procardia XL] 60 mg tablet extended release 24hr 60 mg PO DAILY Qty: 30 0RF clonidine HCl 0.1 mg tablet 0.1 mg PO Q4H PRN (Reason: hypertensive emergency) 2 Days Qty: 30 0RF Rx Instructions: blood pressure >160/95 lisinopril 20 mg tablet 20 mg PO DAILY Qty: 30 0RF cefdinir 300 mg capsule 300 mg PO BID 10 Days Qty: 20 0RF No Action [id number] 1 mg Tablet 1 tab PO DAILY labetalol 200 mg Tablet 200 mg PO BID Qty: 45 0RF ibuprofen 800 mg Tablet 800 mg PO TID Qty: 45 0RF Discharge Orders: Discharge ED (Routine); Ordered 08/16/25 Ordered By: Joann Norris Referrals: Lesley Graves FNP [Primary Care Provider, Family Practice] Discharge Diet: Low Salt Discharge Activity: Resume usual activity Patient Instructions: DASH Eating Plan (ED), Patient Portal & Simón Instructions Activity Restrictions/Additional Instructions: - Follow a low-sodium diet - Take medication as prescribed - At the pharmacy: Procardia XL. Use as directed daily. Take blood pressure prior to your medication. Lisinopril 20 mg. Use as directed daily. Take blood pressure prior to medication. You can take 1 in the morning, and 1 in the afternoon. Clonidine 0.1 mg. This is for as needed. You may use every 4 hours as needed for blood pressure higher than 160/90 - Take blood pressure daily. - Follow-up with Dr. Gaitan regarding your blood pressure. Call office tomorrow. - Compression hose - Return to ED with increasing blood pressure, headache, visual changes, shortness of breath Thank you for choosing [facility] for your healthcare needs today. You have been screened and evaluated and felt safe for discharge. Health conditions do change or evolve sometimes and as such it is important that you follow up with your Primary Doctor to be re checked, 3-5 days is a general good time frame for follow up. You are always welcome to return to the ED for re assessment if your symptoms are worsening or you have new concerns Print Language: Citizen Of [place] Coding Level of Care Code ED Component Overhaul Operator for Caitlin Koch
--- NOTE | 2025-08-15 17:23 | XRR_ITS ---
PROCEDURE INFORMATION: Exam: XR Chest Exam date and time: 08/15/2025 5:58 PM Age: 30 years old Clinical indication: Shortness of breath TECHNIQUE: Imaging protocol: Radiologic exam of the chest. Views: 1 view. COMPARISON: No relevant prior studies available. FINDINGS: Lungs: No infiltrates. No suspicious masses or nodules. Pleural spaces: No pleural effusions or pneumothorax. Heart/Mediastinum: Heart size within normal limits. No pulmonary vascular congestion. Bones/joints: No significant osseous lesion. No fractures. XR/XR chest 1V portable [id number] IMPRESSION: No acute cardiopulmonary findings radiographically.
[2025-08-15 17:34] LABS: Hematocrit 25.9 % (36-47); Hemoglobin 8.70 g/dL (11.27-16.99); Mean Corpuscular HGB Conc 33.6 g/dL (30-55); Mean Corpuscular Hemoglobin 28.2 pg (27-33); Mean Corpuscular Volume 84.1 fl (85-98); Nucleated Red Blood Cells % 0 %; Platelet Count 273 10^3/cmm (157-399); Red Blood Count 3.08 10^6/uL (3.85-5.65); White Blood Count 9.48 10^3/uL (3.29-11.43)
[2025-08-15] MEDS: labetalol 5 mg/mL SDV 20mL 40 MG IVP (17:47)
[2025-08-15 17:59] LABS: Alanine Aminotransferase 16 U/L (0-33); Albumin Level 3.1 g/dL (3.5-5.2); Alkaline Phosphatase 129 U/L (35-105); Aspartate Amino Transferase 19 U/L (0-32); Blood Urea Nitrogen 7 mg/dL (6-20); Calcium 9.3 mg/dL (8.5-10.5); Carbon Dioxide 22 mmol/L (22-29); Chloride 106 mmol/L (98-107); Globulin 2.9 g/dL (1.3-4.6); Glucose 94 mg/dL (65-115); Magnesium 1.7 mg/dL (1.7-2.3); NT Pro B Type Natriuretic Pept 299 pg/mL (0-125); Osmolality Calculated 286 mOsm/kg (285-295); Sodium 139 mmol/L (136-145); Total Protein 6.0 g/dL (6.6-8.7)
[2025-08-15 18:04] LABS: Anion Gap 15.1 (5-19); Potassium 4.1 mmol/L (3.5-5.1)
[2025-08-15 18:24] LABS: Glucose Urine UA Negative (Normal); Nitrate Urine Negative (Negative); Specific Gravity, Urine 1.005 (1.005-1.030)
[2025-08-15 18:29] LABS: Add Urine Microscopic? YES
[2025-08-15] MEDS: cefTRIAXone 1,000 mg SDV 1000 MG IVP (18:47)
[2025-08-15] MEDS: NIFEdipine ER (24 hr) 30 mg Tablet 60 MG PO (19:29)
[2025-08-15] MEDS: labetalol 5 mg/mL SDV 20mL 20 MG IVP (21:05)
[2025-08-16] VITALS: BP 147/100; PULSE 86; O2SAT 93
[2025-08-16 00:20] VITALS: BP 141/96; PULSE 97; O2SAT 94
== END 2025-08-16 00:58 | disposition home or self-care (01) ==
PROVIDERS: Emergency Provider Physician Assistant; PCP Nurse Practitioner Family
DX: O16.5 Unspecified maternal hypertension, complicating the puerperium (principal)
CPT/HCPCS: 71045; 80053; 81001; 83735; 83880; 84156; 85025; 87086; 93005; 96374; 96375; 96376; 99285; J0696; J3490; J9999